=== PATIENT | female | born 1980 | race Caucasian/White ===

== ENCOUNTER 2017-04-12 16:45 | Emergency (ER) | payer SELFPAY ==
[2017-04-12 16:49] VITALS: BP 143/93; PULSE 93; RESP 20; TEMP 37.1; O2SAT 99; BMI 38.2
[2017-04-12 16:57] VITALS: BMI 25.9
--- NOTE | 2017-04-12 17:01 | XR_ITS ---
XR chest 2V HISTORY: Chest pain ITS.REASON: cp ORDERING PHYSICIAN: Lou Raymundo MD PATIENT AGE: 36 years COMPARISON: 08/16/2016 FINDINGS: The cardiomediastinal silhouette and pulmonary vascularity are within normal limits. The lungs are clear without infiltrates, suspicious nodules, or pleural effusions. No acute bony abnormalities. IMPRESSION: Negative chest, no acute finding
--- NOTE | 2017-04-12 17:04 | HMH.EDCP ---
ED Disposition Clinical Impression: Hypertension, Obesity, Atypical chest pain, Non compliance with medical treatment Disposition: Home, Self-Care Condition on Discharge: Good Additional Instructions: 1- no qadded salt diet. 2- daily asa 81 mg. 3- start lisinopril 5 mg . 4- see Dr Lott tomorrow at 9 AM. Prescriptions: Lisinopril [Lisinopril 5mg Tablet] 5 mg PO DAILY #30 tab - Critical Care Critical Care Time: No Attestation: On , the high probability of a clinically significant, sudden or life threatening deterioration of the following system(s) required my full and direct attention, intervention and personal management. The time I documented below is in addition to time spent performing reported procedures but includes the following listed in this critical care notation. Medical Decision Making - Medical Records Medical records reviewed: Yes: I reviewed the patient's medical records. Vital Signs: 04/12/17 16:49 04/12/17 20:14 Temperature 98.8 F Temperature Source Oral Pulse Rate [Right Radial] 93 H 84 Respiratory Rate 20 20 Blood Pressure [Right Arm] 143/93 134/56 Blood Pressure Mean [Right Arm] 109 82 Blood Pressure Source [Right Arm] Automatic Cuff Automatic Cuff Blood Pressure Position [Right Arm] Sitting Sitting 02 Sat by Pulse Oximetry 99 98 Oxygen Delivery Method Room Air Room Air - Lab Data Lab Results 04/12/17 17:00: WBC 10.5, RBC 4.96, Hgb 14.6, Hct 43.7, MCV 88.2, MCH 29.4, MCHC 33.3, RDW 13.0, Plt Count 388, MPV 7.2 L, Neut % (Auto) 63.1, Lymph % (Auto) 26.6, [place] % (Auto) 7.4, Eos % (Auto) 2.3, Baso % (Auto) 0.5, Neut # (Auto) 6.7, Lymph # (Auto) 2.8, [place] # (Auto) 0.8, Eos # (Auto) 0.3, Baso # (Auto) 0.1 04/12/17 17:00: D-Dimer < 100 04/12/17 17:00: Sodium 140, Potassium 3.9, Chloride 107, Carbon Dioxide 26, Anion Gap 10.9, BUN 10, Creatinine 0.59, Estimated Creat Clear 135, Estimated GFR 116, Est GFR ( Amer) 140, Glucose 96, Total Creatine Kinase 114, CK-MB (CK-2) < 0.5, CK-MB (CK-2) Rel Index 0.4, Troponin I < 0.02 04/12/17 17:00: Sodium 141, Potassium 3.9, Chloride 108 H, Carbon Dioxide 25, Anion Gap 11.9, BUN 10, Creatinine 0.63, Estimated Creat Clear 127, Estimated GFR 108, Est GFR ( Amer) 130, Glucose 97, Calcium 8.8, Total Bilirubin 0.3, AST 13 L, ALT 31, Alkaline Phosphatase 67, Total Creatine Kinase 110, CK-MB (CK-2) 0.5, CK-MB (CK-2) Rel Index 0.5, Troponin I < 0.02, C-Reactive Protein 0.5, Total Protein 6.8, Albumin 3.2 L, Globulin 3.6 H, Albumin/Globulin Ratio 0.9 L 04/12/17 17:00: B-Natriuretic Peptide 40 04/12/17 17:00: Group A Strep Rapid Negative 04/12/17 18:09: Urine Color Yellow, Urine Appearance Clear, Urine pH 7.0, Ur Specific [place] 1.020, Urine Protein Negative, Urine Glucose (UA) Negative, Urine Ketones Negative, Urine Blood Negative, Urine Nitrate Negative, Urine Bilirubin Negative, Urine Urobilinogen 0.2, Ur Leukocyte Esterase Negative, Urine RBC None, Urine WBC Occasional, Ur Squamous Epith Cells 20-50, Urine Bacteria 1+ 04/12/17 18:09: Urine Opiates Screen Negative, Ur Barbituates Screen Negative, Ur Phencyclidine Scrn Negative, Ur Amphetamines Screen Negative, U Methamphetamines Scrn Negative, U Benzodiazepines Scrn Negative, Urine Cocaine Screen Negative, U Marijuana (THC) Screen Negative 04/12/17 19:05: Troponin I < 0.02 Result diagrams: 04/12/17 17:00 04/12/17 17:00 Orders (Tests/Meds): ED MEDICATIONS Generic Name Dose Route Start Last Admin Trade Name Freq PRN Reason Stop Dose Admin Lisinopril/HCTZ 1 each 04/13/17 09:00 Zestoretic 10/12.5mg Tablet PO 05/13/17 08:59 DAILY MIKAELA Lisinopril 5 mg 04/13/17 09:00 04/12/17 19:37 Zestril 5mg Tablet PO 05/13/17 08:59 5 mg DAILY MIKAELA Administration Discontinued Medications Generic Name Dose Route Start Last Admin Trade Name Franca PRN Reason Stop Dose Admin Sodium Chloride 1,000 mls @ 999 mls/hr 04/12/17 17:15 04/12/17 17:42 Sod Chloride 0.9% 1000ml
--- NOTE | 2017-04-12 17:08 | ED_ITS ---
ED Disposition Clinical Impression: Hypertension, Obesity, Atypical chest pain, Non compliance with medical treatment Disposition: Home, Self-Care Condition on Discharge: Good Additional Instructions: 1- no qadded salt diet. 2- daily asa 81 mg. 3- start lisinopril 5 mg . 4- see Dr Lott tomorrow at 9 AM. Prescriptions: Lisinopril [Lisinopril 5mg Tablet] 5 mg PO DAILY #30 tab - Critical Care Critical Care Time: No Attestation: On , the high probability of a clinically significant, sudden or life threatening deterioration of the following system(s) required my full and direct attention, intervention and personal management. The time I documented below is in addition to time spent performing reported procedures but includes the following listed in this critical care notation. Medical Decision Making - Medical Records Medical records reviewed: Yes: I reviewed the patient's medical records. Vital Signs: 04/12/17 16:49 04/12/17 20:14 Temperature 98.8 F Temperature Source Oral Pulse Rate [Right Radial] 93 H 84 Respiratory Rate 20 20 Blood Pressure [Right Arm] 143/93 134/56 Blood Pressure Mean [Right Arm] 109 82 Blood Pressure Source [Right Arm] Automatic Cuff Automatic Cuff Blood Pressure Position [Right Arm] Sitting Sitting 02 Sat by Pulse Oximetry 99 98 Oxygen Delivery Method Room Air Room Air - Lab Data Lab Results 04/12/17 17:00: WBC 10.5, RBC 4.96, Hgb 14.6, Hct 43.7, MCV 88.2, MCH 29.4, MCHC 33.3, RDW 13.0, Plt Count 388, MPV 7.2 L, Neut % (Auto) 63.1, Lymph % (Auto ) 26.6, [place] % (Auto) 7.4, Eos % (Auto) 2.3, Baso % (Auto) 0.5, Neut # (Auto) 6.7, Lymph # (Auto) 2.8, Bell # (Auto) 0.8, Eos # (Auto) 0.3, Baso # (Auto) 0.1 04/12/17 17:00: D-Dimer < 100 04/12/17 17:00: Sodium 140, Potassium 3.9, Chloride 107, Carbon Dioxide 26, Anion Gap 10.9, BUN 10, Creatinine 0.59, Estimated Creat Clear 135, Estimated GFR 116, Est GFR ( Amer) 140, Glucose 96, Total Creatine Kinase 114, CK- MB (CK-2) < 0.5, CK-MB (CK-2) Rel Index 0.4, Troponin I < 0.02 04/12/17 17:00: Sodium 141, Potassium 3.9, Chloride 108 H, Carbon Dioxide 25, Anion Gap 11.9, BUN 10, Creatinine 0.63, Estimated Creat Clear 127, Estimated GFR 108, Est GFR ( Amer) 130, Glucose 97, Calcium 8.8, Total Bilirubin 0.3, AST 13 L, ALT 31, Alkaline Phosphatase 67, Total Creatine Kinase 110, CK- MB (CK-2) 0.5, CK-MB (CK-2) Rel Index 0.5, Troponin I < 0.02, C-Reactive Protein 0.5, Total Protein 6.8, Albumin 3.2 L, Globulin 3.6 H, Albumin/Globulin Ratio 0.9 L 04/12/17 17:00: B-Natriuretic Peptide 40 04/12/17 17:00: Group A Strep Rapid Negative 04/12/17 18:09: Urine Color Yellow, Urine Appearance Clear, Urine pH 7.0, Ur Specific [place] 1.020, Urine Protein Negative, Urine Glucose (UA) Negative, Urine Ketones Negative, Urine Blood Negative, Urine Nitrate Negative, Urine Bilirubin Negative, Urine Urobilinogen 0.2, Ur Leukocyte Esterase Negative, Urine RBC None, Urine WBC Occasional, Ur Squamous Epith Cells 20-50, Urine Bacteria 1+ 04/12/17 18:09: Urine Opiates Screen Negative, Ur Barbituates Screen Negative, Ur Phencyclidine Scrn Negative, Ur Amphetamines Screen Negative, U Methamphetamines Scrn Negative, U Benzodiazepines Scrn Negative, Urine Cocaine Screen Negative, U Marijuana (THC) Screen Negative 04/12/17 19:05: Troponin I < 0.02 Result diagrams: 04/12/17 17:00 04/12/17 17:00 Orders (Tests/Meds): ED MEDICATIONS Generic Name Dose Route Start Last Admin Trade Name Hétcor
[2017-04-12 17:10] LABS: Basophils # 0.1 K/mm3 (0-0.2); Basophils % 0.5 % (0.1-2.0); Eosinophils # 0.3 K/mm3 (0.0-0.4); Eosinophils % 2.3 % (0.1-12.0); Hematocrit 43.7 % (37.0-47.0); Hemoglobin 14.6 g/dL (12.2-16.2); Lymphocytes # 2.8 K/mm3 (0.7-4.5); Lymphocytes % 26.6 K/mm3 (10-50); Mean Corpuscular HGB Conc 33.3 g/dL (31.8-35.4); Mean Corpuscular Hemoglobin 29.4 pg (27.0-31.2); Mean Corpuscular Volume 88.2 fl (81-99); Mean Platelet Volume 7.2 fl (7.4-10.4); Monocytes # 0.8 K/mm3 (0.1-1.0); Monocytes % 7.4 % (1.7-9.3); Neutrophils # 6.7 K/mm3 (1.8-7.8); Neutrophils % 63.1 % (37.0-80.0); Platelet Count 388 K/mm3 (142-424); Red Blood Count 4.96 M/mm3 (4.20-5.40); White Blood Count 10.5 K/mm3 (4.8-10.8)
[2017-04-12 17:27] LABS: Anion Gap 10.9 mEq/L (5-15); Blood Urea Nitrogen 10 mg/dL (7-18); Carbon Dioxide 26 mmol/L (21.0-32.0); Chloride 107 mmol/L (98-107); Creatine Kinase 114 U/L (26-192); Creatinine Clearance Estimated 135 mL/min (0-300); Creatinine,Serum 0.59 mg/dL (0.55-1.02); Estimated Glomerular Filt Rate 116 ml/min (>60); GFR (African American) 140 ML/MIN (>60); Glucose 96 mg/dL (74-106); Potassium 3.9 mmoL/L (3.5-5.1); Sodium 140 mmol/L (136-145); Troponin I < 0.02 ng/ml (0.00-0.06)
[2017-04-12 17:29] LABS: CKMB Relative Index 0.4 U/L (0-4.0); Creatine Kinase MB < 0.5 mg/ml (0.0-3.6)
[2017-04-12 17:32] LABS: D-Dimer < 100 (0-400)
[2017-04-12 17:54] LABS: Strep Scrn Group A (Rapid) Negative (Negative)
[2017-04-12 18:01] LABS: Alanine Aminotransferase 31 U/L (12-78); Albumin Level 3.2 gm/dL (3.4-5.0); Albumin/Globulin Ratio 0.9 (1.1-1.8); Alkaline Phosphatase 67 U/L (46-116); Anion Gap 11.9 mEq/L (5-15); Aspartate Amino Transferase 13 U/L (15-37); Bilirubin,Total 0.3 mg/dL (0.2-1.0); Blood Urea Nitrogen 10 mg/dL (7-18); C-Reactive Protein 0.5 mg/L (0.0-0.9); CKMB Relative Index 0.5 U/L (0-4.0); Calcium 8.8 mg/dL (8.5-10.1); Carbon Dioxide 25 mmol/L (21.0-32.0); Chloride 108 mmol/L (98-107); Creatine Kinase 110 U/L (26-192); Creatine Kinase MB 0.5 mg/ml (0.0-3.6); Creatinine Clearance Estimated 127 mL/min (0-300); Creatinine,Serum 0.63 mg/dL (0.55-1.02); Estimated Glomerular Filt Rate 108 ml/min (>60); GFR (African American) 130 ML/MIN (>60); Globulin 3.6 gm/dl (1.3-3.2); Glucose 97 mg/dL (74-106); Potassium 3.9 mmoL/L (3.5-5.1); Sodium 141 mmol/L (136-145); Total Protein,Serum 6.8 gm/dL (6.4-8.2); Troponin I < 0.02 ng/ml (0.00-0.06)
--- NOTE | 2017-04-12 18:02 | PC.NURSE ---
PT AMBULATED TO RESTROOM. STEADY GAIT NOTED.
[2017-04-12 18:33] LABS: Appearance,Urine CLEAR (Clear); Bilirubin,Urine Negative (Negative); Blood, Urine Negative (Negative); Glucose,Urine (UA) Negative (Negative); Ketones,Urine Negative (Negative); Leukocyte Esterase,Urine Negative (Negative); Microscopic, Urine URINE MICROSCOPIC (MICROSCOPIC); Nitrate,Urine Negative (Negative); Protein,Urine Negative (Negative); Urobilinogen,Urine 0.2 EU/dl (0.2)
[2017-04-12 18:34] LABS: Color,Urine Yellow (Yellow)
[2017-04-12 18:43] LABS: Amphetamine/Metha Screen,Urine Negative ng/mL (<1000); Barbiturates Screen,Urine Negative ng/mL (<200); Benzodiazepines Screen,Urine Negative ng/mL (200); Cannabinoid Screen,Urine Negative ng/mL (<50); Cocaine Screen,Urine Negative ng/g (<300); Methadone Screen,Urine Negative ng/mL (<300); Opiate Screen,Urine Negative ng/mL (<300); Phencyclidine Screen,Urine Negative ng/mL (<25)
[2017-04-12 19:15] LABS: Bacteria,Urine 1+ /lpf; Squamous Epithelial Cell,Urine 20-50 #/hpf (0-5); WBC,Urine Occasional #/hpf (0-3)
[2017-04-12 19:25] LABS: Troponin I < 0.02 ng/ml (0.00-0.06)
[2017-04-12 20:14] VITALS: BP 134/56; PULSE 84; RESP 20; O2SAT 98
== END 2017-04-12 20:42 | disposition home or self-care (01) ==
PROVIDERS: Emergency Provider Emergency Medicine
DX: R07.89 Other chest pain (principal); I10 Essential (primary) hypertension; E66.9 Obesity, unspecified; Z68.25 Body mass index [BMI] 25.0-25.9, adult; K21.9 Gastro-esophageal reflux disease without esophagitis; Z88.6 Allergy status to analgesic agent; Z87.891 Personal history of nicotine dependence
CPT/HCPCS: 71046; 80048; 80053; 80305; 81001; 82550; 82553; 83880; 84484; 85025; 85378; 86140; 87430; 93005; 93041; 96365; 99283

== ENCOUNTER 2019-10-29 12:34 | Emergency (ER) | payer MEDICAID, SELFPAY ==
[2019-10-29 12:47] VITALS: BP 143/95; PULSE 113; RESP 17; TEMP 37.1; O2SAT 95; BMI 48.2
[2019-10-29 13:06] VITALS: BP 161/96; PULSE 99
--- NOTE | 2019-10-29 13:17 | HMH.EDSKAF ---
ED Disposition Clinical Impression: Abscess of skin or subcutaneous tissue Qualifiers: Site of cutaneous abscess: other site Qualified Code(s): L02.818 - Cutaneous abscess of other sites Disposition: Home, Self-Care Condition on Discharge: Fair Instructions: DI for Skin Abscess Prescriptions: Amoxicillin/Potassium Clav [Augmentin 825125 Tablet] 1 tab PO Q12H 7 Days #14 tab Transmission Status: Pending to [employer] #[id number] Time of Disposition: 13:46 - Critical Care Critical Care Time: No Attestation: On , the high probability of a clinically significant, sudden or life threatening deterioration of the following system(s) required my full and direct attention, intervention and personal management. The time I documented below is in addition to time spent performing reported procedures but includes the following listed in this critical care notation. Medical Decision Making - Medical Records Medical records reviewed: Yes: I reviewed the patient's medical records. MR Comment: patient complaints of left labial abscess since Sunday. Denies similar episodes previously, denies any sexual activity lately. Examination showed an abscess in the left labial area; the area was cleaned with Betadine, lidocaine without epi was injected , Used a 11 blade an incision was made approximately 3 to 4 mL of pus was removed, dressing applied to the abscess; We are prescribing an antibiotic to the patient advised her to keep expressing pus from the area and follow-up as needed and changing dressings bid till healed. Sample from the wound has been sent for culture - Ever Inquiry Pt receiving controlled substance: No Vital Signs: 10/29/19 12:47 10/29/19 13:06 Temperature 98.7 F Temperature Source Oral Pulse Rate [Right Radial] 113 H 99 H Respiratory Rate 17 Blood Pressure [Right Arm] 143/95 H 161/96 H Blood Pressure Mean [Right Arm] 111 117 Blood Pressure Position [Right Arm] Supine 02 Sat by Pulse Oximetry 95 Oxygen Delivery Method Room Air Orders (Tests/Meds): ED MEDICATIONS Discontinued Medications Generic Name Dose Route Start Last Admin Trade Name Freq PRN Reason Stop Dose Admin Ceftriaxone Sodium 1 gm 10/29/19 12:54 10/29/19 13:30 Rocephin 1gm Vial IM 10/29/19 12:55 1 gm ONCE ONE Administration Protocol Lidocaine HCl 0 ml 10/29/19 12:54 10/29/19 13:30 Lidocaine 1% 10ml Mdv IM 10/29/19 12:55 2.1 ml ONCE ONE Administration ORDERS Category Date Time Status Wound Culture and Gram Stain Stat Micro 10/29/19 13:05 Received Skin/Abscess/FB HPI - General Chief complaint: Skin/Abscess/Foreign Body Stated complaint: Mass in crease of l leg going into vaginal area Time Seen by Provider: 10/29/19 12:40 Mode of Arrival: Ambulatory Source of Information: Patient Limitations: No Limitations Description of Symptoms (Recalled from ER Triage Doc. by RN): left labial abscess since sunday. - History of Present Illness HPI narrative: patient complaints of left labial abscess since Sunday. Denies similar episodes previously, denies any sexual activity lately MD complaint: abscess/boil Onset (ago): day(s) Tetanus up to date: unsure Location: genitals Severity: moderate Severity scale (1-10): 6 Quality: sharp Consistency: constant Relieving factors: none Exacerbating factors: none Context: none Associated symptoms: denies other symptoms Treatments prior to arrival: none - Related Data Previous Rx's Medication Instructions Recorded cephALEXin [Keflex 500mg Cap] 500 mg PO TID #30 cap 04/17/19 Amoxicillin/Potassium Clav 1 tab PO Q12H 7 Days #14 tab 10/29/19 [Augmentin 875-125 Tablet] Allergies Allergy/AdvReac Type Severity Reaction Status Date / Time codeine [CODEINE] Allergy Severe S-DIFF. Verified 10/29/19 12:53 BREATHING [facility] History - Hepatitis A Screen Drug use history?: No High risk sexual behaviors?: No History of sexually tr
[2019-10-29 14:00] VITALS: BP 158/97; PULSE 107; RESP 18; TEMP 37.1; O2SAT 98
== END 2019-10-29 14:00 | disposition home or self-care (01) ==
PROVIDERS: Emergency Provider Emergency Medicine
DX: N76.4 Abscess of vulva (principal); G43.709 Chronic migraine without aura, not intractable, without status migrainosus; K21.9 Gastro-esophageal reflux disease without esophagitis; I10 Essential (primary) hypertension; Z90.49 Acquired absence of other specified parts of digestive tract; Z90.710 Acquired absence of both cervix and uterus; Z87.891 Personal history of nicotine dependence; Z88.5 Allergy status to narcotic agent
CPT/HCPCS: 56405; 87070; 87077; 87186; 87205; 96372; 99283

== ENCOUNTER 2020-02-01 15:47 | Emergency (ER) | payer MEDICAID, SELFPAY ==
[2020-02-01 16:04] VITALS: BP 153/71; PULSE 101; RESP 17; O2SAT 96; BMI 46.5
[2020-02-01 16:20] VITALS: BP 153/71; PULSE 101; RESP 17; TEMP 36.8; O2SAT 96; BMI 46.6
--- NOTE | 2020-02-01 16:32 | XR_ITS ---
PROCEDURE: XR CERVICAL SPINE 3V Referring Doctor: Fausto Velasco Patient Age:39Y CLINICAL INDICATION: PAIN Neck pain extends to upper back chest and down left arm past 4 months. COMPARISON: CR XR CHEST 2V from 04/17/2019 CR XR THORACIC SPINE 2V from 02/01/2020 FINDINGS: Cervical spine series 4 view: AP, lateral, open mouth odontoid, and performed today The cervical spine appears intact with normal alignment. The cervical vertebral bodies intact and unremarkable disc spaces are well maintained throughout the C-spine. The cervical thoracic junction appears satisfactory-On the lateral swimmer's view.. Question minimal levocurvature at the upper the T-spine noted on the AP view but is less evident and negligible on subsequent T-spine series The dens, odontoid intact. C1-C2 relationships appear normal on the open mouth views. I would incidentally note that the maxillary sinuses are clear. IMPRESSION: negative C-spine. Normal alignment. Disc spaces well maintained. No evident cervical spondylosis on these views Dictated by: Deepak Barillas MD 02/01/2020 19:03 Deepak Barillas MD in [place] 02/01/2020 19:03
--- NOTE | 2020-02-01 16:32 | XR_ITS ---
PROCEDURE: XR THORACIC SPINE 2V Referring Doctor: Fausto Velasco Patient Age:39Y CLINICAL INDICATION: PAIN Neck pain that goes into upper back upper thoracic area and into the chest. Pain goes down left arm for months. COMPARISON: CR CXR2V XR chest 2V from 04/12/2017 CR XR CHEST 2V from 04/17/2019 FINDINGS: Thoracic spine AP and lateral views performed Thoracic spine appears intact. Vertebral bodies intact with disc spaces are well maintained. Pedicles intact. No perispinal mass. Only question possible very minor levocurvature at the upper most T-spine but is negligible 5 degrees or less. And does not appear to be of significance. The visualized portions the lungs are clear. The heart upper normal in size. IMPRESSION: T-spine intact. With no significant appearing findings on plain film Vertebral bodies and disc spaces well maintained. Dictated by: Deepak Barillas MD 02/01/2020 19:07 Deepak Barillas MD in [place] 02/01/2020 19:07
--- NOTE | 2020-02-01 17:06 | HMH.EDUTC ---
[facility] Disposition Clinical Impression: Neck pain Left shoulder pain Qualifiers: Chronicity: acute Qualified Code(s): M25.512 - Pain in left shoulder Radiculopathy Qualifiers: Spinal region: unspecified Qualified Code(s): M54.10 - Radiculopathy, site unspecified Disposition: Home, Self-Care Condition on Discharge: Good Instructions: DI for Cervical Radiculopathy Additional Instructions: Don't start the oral steroids until tomorrow, since you had the shot here today. Go home and rest. It would be best if you rested tomorrow too. No heavy lifting. No twisting. Take the oral medications as directed. The muscle relaxer (robaxin) will make you drowsy, so don't drive or operate heavy machinery after taking it. Follow up with your regular doctor. GO TO THE ER FOR ANY WORSENING SYMPTOMS OR CONCERN, ESPECIALLY BOWEL OR BLADDER ISSUES, SADDLE AREA NUMBNESS, FEVER, ETC Prescriptions: methylPREDNISolone [Medrol] 4 mg PO DIRECTED 6 Days #21 tab.ds.pk Transmission Status: Received by [email or web address] #[id number] Methocarbamol [Robaxin 500mg Tab] 500 mg PO BIDP PRN #30 tab PRN Reason: Muscle Spasm Transmission Status: Received by [email or web address] #[id number] Referrals: PCP,No [Primary Care Provider] - Forms: Work/School Release Time of Disposition: 17:20 Medical Decision Making - Medical Records Medical records reviewed: No: I reviewed the patient's medical records. - Ever Inquiry Pt receiving controlled substance: No Vital Signs: 02/01/20 16:04 02/01/20 16:20 02/01/20 17:34 Temperature 98.3 F 98.3 F Temperature Source Oral Pulse Rate 101 H Pulse Rate [Right Radial] 101 H 101 H Respiratory Rate 17 17 17 Blood Pressure 153/71 H Blood Pressure [Right Arm] 153/71 H 153/71 H Blood Pressure Mean [Right Arm] 98 98 Blood Pressure Source [Right Arm] Automatic Cuff Blood Pressure Position [Right Arm] Sitting 02 Sat by Pulse Oximetry 96 96 Oxygen Delivery Method Room Air Orders (Tests/Meds): ED MEDICATIONS Discontinued Medications Generic Name Dose Route Start Last Admin Trade Name Freq PRN Reason Stop Dose Admin Ketorolac Tromethamine 60 mg 02/01/20 17:18 02/01/20 17:25 Ketorolac 60mg/2ml Vial IM 02/01/20 17:19 60 mg ONCE ONE Administration Methylprednisolone Sodium Succinate 125 mg 02/01/20 17:18 02/01/20 17:25 Methylprednisolone Sod Succ 125mg Vial IM 02/01/20 17:19 125 mg ONCE ONE Administration [facility] HPI - General Stated complaint: neck and arm pain Time Seen by Provider: 02/01/20 17:06 Mode of Arrival: Ambulatory Source of Information: Patient Limitations: No Limitations Description of Symptoms (Recalled from Triage Doc. by RN): PATIENT C/O PAIN IN NECK FOR SEVERAL MONTHS. SHE STATES THE PAIN RADIATES TO LEFT SHOULDER AND CAUSES TINGLING AND BURNING TO LEFT ARM. REPORTS PAIN IS GETTING WORSE AND STARTING TO ALSO RADIATE TO RIGHT SHOULDER AND DOWN BACK TO SHOULDER BLADES. SHE ALSO C/O DECREASED BILATERAL STOCK HANGER HEENT Symptoms (Recalled from RN notes): No Resp Symptoms (Recalled from RN notes): No Skin Symptoms (Recalled from RN notes): No MS Symptoms (Recalled from RN notes): Yes Functional Status (Recalled from RN notes): WNL - History of Present Illness Provider Complaint: She states that she has been having neck pain and left shoulder pain. This has been ongoing for the past 3 months or so. It seems like its getting worse. She denies any injury that preceded this. Sometimes her left hand goes numb with it. - Related Data Previous Rx's Medication Instructions Recorded Methocarbamol [Robaxin 500mg Tab] 500 mg PO BIDP PRN #30 tab 02/01/20 methylPREDNISolone [Medrol] 4 mg PO DIRECTED 6 Days #21 02/01/20 tab.ds.pk Allergies Allergy/AdvReac Type Severity Reaction Status Date / Time codeine [CODEINE] Allergy Severe S-DIFF. Verified 10/29/19 12:53 BREATHING - Worker's Comp Is this a Worker's Comp case?: N
[2020-02-01 17:34] VITALS: BP 153/71; PULSE 101; RESP 17; TEMP 36.8; O2SAT 96
== END 2020-02-01 17:43 | disposition home or self-care (01) ==
PROVIDERS: Emergency Provider Nurse Practitioner Family
DX: M54.12 Radiculopathy, cervical region (principal); I10 Essential (primary) hypertension; K21.9 Gastro-esophageal reflux disease without esophagitis; R00.2 Palpitations; Z79.899 Other long term (current) drug therapy; Z88.5 Allergy status to narcotic agent; Z90.49 Acquired absence of other specified parts of digestive tract; Z90.710 Acquired absence of both cervix and uterus
CPT/HCPCS: 72040; 72070; 96372; 99201

== ENCOUNTER 2020-05-06 19:03 | Emergency (ER) | payer OTHER, SELFPAY ==
[2020-05-06 19:05] VITALS: BP 142/98; PULSE 101; RESP 18; TEMP 36.7; O2SAT 99; BMI 46.5
[2020-05-06 19:10] VITALS: BP 142/98; PULSE 101; RESP 18; TEMP 36.7; O2SAT 99; BMI 46.5
--- NOTE | 2020-05-06 19:15 | XR_ITS ---
PROCEDURE: XR ELBOW RT MIN 3V CLINICAL INDICATION: pain COMPARISON: No exams were available for comparison FINDINGS: No fracture or dislocation. No lytic or blastic change. There is normal mineralization. The joint spaces are well-preserved. No significant degenerative/arthritic changes. No erosive changes evident. Other findings:None. IMPRESSION: No acute findings. Dictated by: Marcos Fung MD 05/07/2020 06:44 Marcos Fung MD in [place] 05/07/2020 06:44
--- NOTE | 2020-05-06 19:39 | HMH.EDUTC ---
[facility] Disposition Clinical Impression: Elbow sprain Qualifiers: Encounter type: initial encounter Laterality: right Qualified Code(s): S53.401A - Unspecified sprain of right elbow, initial encounter Disposition: Home, Self-Care Condition on Discharge: Good Instructions: How To Perform RICE (Rest, Ice, Compress, Elevate) Additional Instructions: *RICE, Rest the extremity, Ice 15-20 minutes 3-4 times daily, Compress- wear the hero wrap as discussed as much as possible to help reduce swelling and pain, Elevate the extremity when at rest *Hero wrap is for support and help control swelling, use it except in the shower. Be sure that is not to tight but not to loose either *Elevate when resting *Ibuprofen as prescribed every 8 hours as needed for pain an inflammation. If need something more can take Tylenol in between doses of Ibuprofen to help Immediately follow up with your family doctor for new or worsening of symptoms, or no noticeable improvement over the next 3-5 days Prescriptions: Ibuprofen [Ibuprofen 800mg Tablet] 800 mg PO TIDP PRN #20 tab PRN Reason: Moderate Pain Transmission Status: Received by [employer] #[id number] Referrals: PCP,No [Primary Care Provider] - As needed Rtiika Evans MD [Physician] - As needed (Office will call with appointment) Forms: Work/School Release Time of Disposition: 20:18 Medical Decision Making - Ever Inquiry Pt receiving controlled substance: No Ever was queried for this patient: No Vital Signs: 05/06/20 19:05 05/06/20 19:10 05/06/20 20:25 Temperature 98.0 F 98.0 F 98.0 F Temperature Source Oral Oral Pulse Rate 101 H Pulse Rate [Left Brachial] 101 H 101 H Respiratory Rate 18 18 18 Blood Pressure 142/98 H Blood Pressure [Left Arm] 142/98 H 142/98 H Blood Pressure Mean [Left Arm] 112 112 Blood Pressure Source [Left Arm] Automatic Cuff Automatic Cuff Blood Pressure Position [Left Arm] Sitting Sitting 02 Sat by Pulse Oximetry 99 99 Oxygen Delivery Method Room Air Room Air Orders (Tests/Meds): ED MEDICATIONS Discontinued Medications Generic Name Dose Route Start Last Admin Trade Name Freq PRN Reason Stop Dose Admin Ketorolac Tromethamine 30 mg 05/06/20 20:14 02/25/21 20:20 Ketorolac 60mg/2ml Vial IM 05/06/20 20:15 30 mg ONCE ONE Administration ORDERS Category Date Time Status XR elbow RT min 3V Stat Exams 05/06/20 19:15 Taken - Radiology Data #1 Image(s): Elbow Image Reviewed: Yes I reviewed the patient's radiology image Preliminary Findings: Normal/NAD no acute fracture - Physician Consults Physician Consulted: Cristina Time: 20:15 Reason -: Orthopedic Eval/Care Comment/Response: Spoke with Dr Evans she looked at xrays and agreed, Advised to place her in sling and office will call for appointment [facility] HPI - General Stated complaint: ao [id number] INJURED r ELBOW Time Seen by Provider: 05/06/20 19:39 Mode of Arrival: Ambulatory Source of Information: Patient Limitations: No Limitations Description of Symptoms (Recalled from Triage Doc. by RN): PATIENT C/O RIGHT ELBOW PAIN AFTER SHE HYPEREXTENDED IT TODAY HEENT Symptoms (Recalled from RN notes): No Resp Symptoms (Recalled from RN notes): No Skin Symptoms (Recalled from RN notes): No MS Symptoms (Recalled from RN notes): Yes Functional Status (Recalled from RN notes): WNL - History of Present Illness Provider Complaint: Patient states that she was holding her arm out the window when her son give her a high five and hyperexted her elbow Her upper arm was against the metal window guard and her elbow down bent back States that she has had surgery on this elbow before and felt like something popped and ever since she has been having pain - Related Data Previous Rx's Medication Instructions Recorded Methocarbamol [Robaxin 500mg Tab] 500 mg PO BIDP PRN #30 tab 02/01/20 methylPREDNISolone [Medrol] 4 mg PO DIRECTED 6 Days #21
[2020-05-06 20:25] VITALS: BP 142/98; PULSE 101; RESP 18; TEMP 36.7; O2SAT 99
== END 2020-05-06 20:28 | disposition home or self-care (01) ==
PROVIDERS: Emergency Provider Nurse Practitioner
DX: S53.401A Unspecified sprain of right elbow, initial encounter (principal); X50.9XXA Other and unspecified overexertion or strenuous movements or postures, initial encounter; Y92.89 Other specified places as the place of occurrence of the external cause; K21.9 Gastro-esophageal reflux disease without esophagitis; I10 Essential (primary) hypertension; G43.709 Chronic migraine without aura, not intractable, without status migrainosus; Z90.49 Acquired absence of other specified parts of digestive tract; Z90.710 Acquired absence of both cervix and uterus; Z79.899 Other long term (current) drug therapy
CPT/HCPCS: 73080; 96372; 99202; G0463

== ENCOUNTER 2020-06-02 15:00 | Outpatient (RCR) | payer OTHER, SELFPAY | END 2020-06-02 15:05 | disposition home or self-care (01) | LOC: OT 15:00 | PROVIDERS: Visit Provider Orthopaedic Surgery | DX: S59.801D Other specified injuries of right elbow, subsequent encounter (principal) | CPT/HCPCS: 97014; 97035; 97110; 97140; 97165; 97530; G0283 ==

== ENCOUNTER → 2020-08-25 14:36 | Outpatient (CLI) | payer OTHER, SELFPAY ==
--- NOTE | 2020-08-25 14:39 | MM_ITS ---
PROCEDURE: MM DIG MAMM DX UNILAT LT CAD Digital Breast Tomosynthesis Included CLINICAL INDICATION: LT BREAST LUMP at 10 o'clock COMPARISON: US US BREAST LT COMPLETE from 08/25/2020 TECHNIQUE: Standard CC and MLO images and 3D Tomosynthesis was obtained. R2 CAD reviewed. FINDINGS: There are scattered fibroglandular elements which may obscure a lesion on mammography. No dominant mass or indirect evidence of malignancy. No suspicious type microcalcifications. This is the patient's baseline mammograms. Nothing to definitively correlate with the lump in the lower inner quadrant of the left breast. Complete left breast ultrasound concentrating on the site of lump at 10 o'clock shows a circumscribed mildly hyperechoic lesion with internal echoes which is quite superficial in position in the left breast. This most likely represents a lipoma. It measures about 2.3 cm x 8 mm. There is a minimally complex 7 mm cyst which appears to be directly deep to the probable lipoma. There are a few benign-appearing lymph nodes in the left axilla. There are no other abnormalities. These findings are considered probably benign and repeat left breast ultrasound in 6 months is recommended. Given the patient has a palpable abnormality, a clinical evaluation by a clinical breast child care sitter is also recommended. IMPRESSION: Normal bilateral baseline digital diagnostic mammograms. Nothing to definitively correlate with a lump at 10 o'clock in the left breast by mammography. 2.3 cm x 8 mm circumscribed mildly hyperechoic lesion at 10 o'clock superficially in the left breast with ultrasound features most consistent with a lipoma. 7 mm minimally complex cyst just directly deep to the probable lipoma. These findings are considered probably benign and repeat left breast ultrasound in 6 months is recommended. Given the patient has a palpable left breast lump, a clinical evaluation by a clinical breast child care sitter is also recommended. BI-RAD Category: 3 Probably Benign Finding Short Term Follow-Up FOLLOW-UP: 6M 6 Month Follow-up. Given the patient has a palpable left breast lump, a clinical evaluation by a clinical breast child care sitter is also recommended. (A letter has been sent to the patient regarding results of the study.) Dictated by: Fausto Starr MD 08/26/2020 10:09 Fausto Starr MD in [place] 08/26/2020 10:09
--- NOTE | 2020-08-25 14:43 | US_ITS ---
PROCEDURE: MM DIG MAMM DX UNILAT LT CAD Digital Breast Tomosynthesis Included CLINICAL INDICATION: LT BREAST LUMP at 10 o'clock COMPARISON: US US BREAST LT COMPLETE from 08/25/2020 TECHNIQUE: Standard CC and MLO images and 3D Tomosynthesis was obtained. R2 CAD reviewed. FINDINGS: There are scattered fibroglandular elements which may obscure a lesion on mammography. No dominant mass or indirect evidence of malignancy. No suspicious type microcalcifications. This is the patient's baseline mammograms. Nothing to definitively correlate with the lump in the lower inner quadrant of the left breast. Complete left breast ultrasound concentrating on the site of lump at 10 o'clock shows a circumscribed mildly hyperechoic lesion with internal echoes which is quite superficial in position in the left breast. This most likely represents a lipoma. It measures about 2.3 cm x 8 mm. There is a minimally complex 7 mm cyst which appears to be directly deep to the probable lipoma. There are a few benign-appearing lymph nodes in the left axilla. There are no other abnormalities. These findings are considered probably benign and repeat left breast ultrasound in 6 months is recommended. Given the patient has a palpable abnormality, a clinical evaluation by a clinical breast managed care manager is also recommended. IMPRESSION: Normal bilateral baseline digital diagnostic mammograms. Nothing to definitively correlate with a lump at 10 o'clock in the left breast by mammography. 2.3 cm x 8 mm circumscribed mildly hyperechoic lesion at 10 o'clock superficially in the left breast with ultrasound features most consistent with a lipoma. 7 mm minimally complex cyst just directly deep to the probable lipoma. These findings are considered probably benign and repeat left breast ultrasound in 6 months is recommended. Given the patient has a palpable left breast lump, a clinical evaluation by a clinical breast managed care manager is also recommended. BI-RAD Category: 3 Probably Benign Finding Short Term Follow-Up FOLLOW-UP: 6M 6 Month Follow-up. Given the patient has a palpable left breast lump, a clinical evaluation by a clinical breast managed care manager is also recommended. (A letter has been sent to the patient regarding results of the study.) Dictated by: Fausto Starr MD 08/26/2020 10:09 Fausto Starr MD in [place] 08/26/2020 10:09
== END ==
PROVIDERS: PCP Emergency Medicine; Visit Provider Nurse Practitioner Family
DX: N63.20 Unspecified lump in the left breast, unspecified quadrant (principal)
CPT/HCPCS: 76641; 77061; 77065; G0279

== ENCOUNTER → 2020-08-28 12:01 | Outpatient (CLI) | payer OTHER, SELFPAY ==
[2020-08-28 12:18] LABS: Basophils # 0.1 K/mm3 (0-0.2); Basophils % 0.8 % (0.1-2.0); Eosinophils # 0.3 K/mm3 (0.0-0.4); Eosinophils % 3.3 % (0.1-12.0); Hematocrit 46.4 % (37.0-47.0); Hemoglobin 15.8 g/dL (12.2-16.2); Lymphocytes # 3.3 K/mm3 (0.7-4.5); Lymphocytes % 34.1 % (10-50); Mean Corpuscular HGB Conc 34.1 g/dL (31.8-35.4); Mean Corpuscular Hemoglobin 29.5 pg (27.0-31.2); Mean Corpuscular Volume 86.5 fl (81-99); Mean Platelet Volume 7.2 fl (7.4-10.4); Monocytes # 0.4 K/mm3 (0.1-1.0); Monocytes % 4.5 % (1.7-9.3); Neutrophils # 5.6 K/mm3 (1.8-7.8); Neutrophils % 57.3 % (37.0-80.0); Platelet Count 445 K/mm3 (142-424); Red Blood Count 5.36 M/mm3 (4.20-5.40); Red Cell Distribution Width 13.5 % (11.5-17.5); White Blood Count 9.8 K/mm3 (4.8-10.8)
[2020-08-28 12:53] LABS: Alanine Aminotransferase 24 U/L (12-78); Albumin Level 4.2 g/dl (3.5-5.0); Albumin/Globulin Ratio 1.5 (1.1-1.8); Alkaline Phosphatase 90 U/L (38-126); Anion Gap 14.5 mEq/L (5-15); Aspartate Amino Transferase 25 U/L (14-36); Bilirubin,Total 0.7 mg/dl (0.2-1.3); Blood Urea Nitrogen 12 mg/dl (7-17); Calcium 9.3 mg/dl (8.4-10.2); Carbon Dioxide 22 mmol/L (22.0-30.0); Chloride 102 mmol/L (98-107); Chol/HDL Ratio 4.4 (1-3.5); Cholesterol 240 mg/dl (140-200); Estimated Glomerular Filt Rate 138 ml/min (>60); GFR (African American) 167 ML/MIN (>60); Globulin 2.8 g/dL (1.3-3.2); Glucose 166 mg/dl (74-100); HDL Cholesterol 54 mg/dl (40-60); Potassium 4.5 mmoL/L (3.5-5.1); Sodium 134 mmol/L (136-145); Triglycerides 143 mg/dl (30-150); VLDL Cholesterol 29 mg/dL (0-40)
[2020-08-28 12:59] LABS: Hemoglobin A1C 8.9 % (4.0-6.0)
[2020-08-28 13:04] LABS: Direct LDL Cholesterol 161.69 mg/dL (100-129)
[2020-08-28 13:16] LABS: 25-OH Vitamin D, Total < 12.8 ng/mL (30-100)
[2020-08-28 13:24] LABS: Thyroid Stimulating Hormone 1.32 uIU/mL (0.465-4.68)
[2020-08-28 13:42] LABS: Vitamin B12 360 pg/mL (239-931)
== END ==
PROVIDERS: Visit Provider Nurse Practitioner Family
DX: I10 Essential (primary) hypertension (principal); R20.2 Paresthesia of skin; E66.01 Morbid (severe) obesity due to excess calories; Z68.41 Body mass index [BMI] 40.0-44.9, adult
CPT/HCPCS: 36415; 80053; 80061; 82306; 82607; 83036; 84443; 85025

== ENCOUNTER 2020-09-07 15:00 | Outpatient (RCR) | payer OTHER, SELFPAY ==
--- NOTE | 2020-07-15 15:46 | HMH.OTOPEV ---
OT Inpatient Evaluation Rehab OT Outpatient Eval Start: 07/15/20 15:24 Freq: Status: Active Protocol: Document 07/15/20 15:27 RMCHAYA (Rec: 07/15/20 15:46 [id number] Electronically Signed By Radha Dueñas OT 07/15/20 15:27 Outpatient Therapy Subjective History Subjective History Pt is a 39 year old female who reports to therapy for initial evaluation to right elbow. Pt reports on May 06, 2020 she had her arm extended out car window when her son have her a high-five . This resulted in a hyperextension at the elbow. Pt has seen therapy previously for 4 weeks, but did not demonstrate improvement. Since then she has seen an ortho and received an MRI. 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 Pt also has a past history of ulnar nerve decompression/ transposition and CTR in June 2007. Pt does demonstrate with decreased AROM and strength at right elbow. Pt will continue to be seen in order to address all deficits. Chief Complaint Pain,Weakness Symptom Type Ache,Throb,Sharp,Dull Symptoms Relieved By Rest/Positioning Symptoms Aggravated By Physical Activity,Lifting Prior Functional Limitations None Current Functional Limitations Reaching,Lifting,Housework, Sleeping,Recreation Activity Symptom Description Constant but Variable Level of pain today (0-10) 6 Pain scale - at its best (0-10) 4 Pain scale - at its worst (0-10) 9 Shoulder/Elbow Eval Shoulder Objective Measurements Elbow Objective Measurements Elbow ROM Right Elbow Extension Active Range of Motion ( -10 degrees degrees) Elbow Flexion Active Range of Motion ( 115 degrees degrees) Elbow Pronation of Forearm Range of 90 degrees Motion (degrees) Elbow Supination of Forearm Range of 70 degrees Motion (degrees) Elbow MMT Elbow Flexion Strength Grade 3+ Fair+ Elbow Extension Strength Grade 3+ Fair+ OT Outpatient Assessment Impairments Problems/Impairments Palpation Tenderness,Impaired Range of Motion,Impaired
--- NOTE | 2020-08-18 15:03 | HMH.RHREAS ---
Rehab Reassessment Rehab OP Re-assessment Start: 08/18/20 14:56 Freq: Status: Active Protocol: Document 08/18/20 14:56 KIAH (Rec: 08/18/20 15:03 KIAH [id number]) Electronically Signed By Radha Dueñas OT 08/18/20 14:56 Rehab Re-assessment Subjective Subjective I honestly don't see a difference. Objective Objective Notes Each session pt attends, therapist provides skilled OT services. She is passively ranged at right elbow in flexion, extension, supination , and pronation. Pt also receives soft tissue massage to medial elbow. Pt does engage in nerve glides, aROM, and strengthening exercises at right elbow. Modalities are provided in order to decrease pain/inflammation. Assessment Progress Assessment Slower Than Expected Assessment Notes At this time, pt does not demonstrate progress. She has not been able to attended therapy for the past 13 days due to having to go to the doctor. Pt presents to therapy today with swelling on anterior aspect for right forearm. Pt is also very tender to touch there. Pt did receive two injections at the elbow last sunday; however she reports no improvement in pain. Pt's pain is still at 8 /10 at worst. Pt's AROM has not improved and neither has strength since starting therapy. Patient goals met STG 3 & 5 Goals Not Met See below Revised Goals STG 1, 2, & 4 LT-5 Plan Plan Continue with ot plan of care at this time Frequency of Therapy 2xs a week Duration of therapy 4 more weeks Time and Billing Re-Eval Time 10 Re-Eval Billing Units 1 PHYSICIAN CERTIFICATION: I certify the specified therapy services for Amara Lucero are required, authorized, and reviewed every 30 days.
== END 2020-09-07 15:05 | disposition home or self-care (01) ==
LOC: OT 15:00
PROVIDERS: PCP Emergency Medicine; Visit Provider Orthopaedic Surgery
DX: S53.10 Unspecified subluxation and dislocation of ulnohumeral joint; S59.801D Other specified injuries of right elbow, subsequent encounter
CPT/HCPCS: 97014; 97035; 97110; 97140; 97164; 97166; 97530; G0283

== ENCOUNTER 2020-10-04 19:20 | Emergency (ER) | payer OTHER, SELFPAY ==
[2020-10-04 19:21] VITALS: BP 129/77; PULSE 98; RESP 19; TEMP 36.7; O2SAT 96; BMI 44.1
--- NOTE | 2020-10-04 19:54 | HMH.EDUTC ---
[facility] – [place] Disposition Clinical Impression: Exposure to COVID-19 virus Sinusitis Qualifiers: Sinusitis location: unspecified location Chronicity: acute Recurrence: non-recurrent Qualified Code(s): J01.90 - Acute sinusitis, unspecified Disposition: Home, Self-Care Condition on Discharge: Good Instructions: DI for Sinusitis, Preventing the Spread of Coronavirus Discharge Instructions Additional Instructions: Drink plenty of fluids. Take tylenol or ibuprofen for pain or fever. Take the medications as directed. Follow up with your regular doctor. GO TO THE ER FOR ANY WORSENING SYMPTOMS The cough medication (promethazine dm) will make you drowsy, so don't drive or operate heavy machinery after taking it. Prescriptions: Brompheniramine/Pseudoephed/Dm [Bromfed Dm Cough Syrup] 5 ml PO Q6HP PRN #240 syrup PRN Reason: Cough Transmission Status: Received by [facility] #[id number] guaiFENesin [Mucinex 600mg tablet] 1 - 2 tab PO BIDP PRN #30 tab.er.12h PRN Reason: Congestion Transmission Status: Received by [facility] #[id number] Azithromycin [Z-Eric 250mg Tab*] 250 mg PO UD DOSE PK #6 tab Transmission Status: Received by [facility] #[id number] Referrals: Casandra Oates APRN [Primary Care Provider] - Forms: Work/School Release Time of Disposition: 20:28 Medical Decision Making - Medical Records Medical records reviewed: No: I reviewed the patient's medical records. - Ever Inquiry Pt receiving controlled substance: No Vital Signs: 10/04/20 19:21 10/04/20 20:45 Temperature 98.0 F 98.0 F Temperature Source Oral Pulse Rate 98 H Pulse Rate [Left Radial] 98 H Respiratory Rate 19 19 Blood Pressure 129/77 Blood Pressure [Right Arm] 129/77 Blood Pressure Mean [Right Arm] 94 Blood Pressure Source Automatic Cuff Blood Pressure Source [Right Arm] Automatic Cuff Blood Pressure Position Sitting Blood Pressure Position [Right Arm] Sitting 02 Sat by Pulse Oximetry 96 Oxygen Delivery Method Room Air Orders (Tests/Meds): ED MEDICATIONS Discontinued Medications Generic Name Dose Route Start Last Admin Trade Name Freq PRN Reason Stop Dose Admin Ceftriaxone Sodium 1 gm 10/04/20 20:25 10/04/20 20:35 Ceftriaxone 1gm Vial IM 10/04/20 20:26 1 gm ONCE ONE Administration Protocol Lidocaine HCl 0 ml 10/04/20 20:25 10/04/20 20:35 Lidocaine 1% 5ml Pf Vial IM 10/04/20 20:26 2.1 ml ONCE ONE Administration [facility] [place] HPI - General Stated complaint: possible sinus infection Time Seen by Provider: 10/04/20 19:54 Mode of Arrival: Ambulatory Source of Information: Patient Limitations: No Limitations Description of Symptoms (Recalled from Triage Doc. by RN): c/o runny nose, drainage since Sunday, thinks she has a sinus infection HEENT Symptoms (Recalled from RN notes): Yes Resp Symptoms (Recalled from RN notes): No Skin Symptoms (Recalled from RN notes): No MS Symptoms (Recalled from RN notes): No Functional Status (Recalled from RN notes): wnl - History of Present Illness Provider Complaint: She c/o sinus pressure and drainage for the past 2 days. She denies fever and chills. - Related Data Previous Rx's Medication Instructions Recorded Azithromycin [Z-Eric 250mg Tab*] 250 mg PO UD DOSE PK #6 tab 10/04/20 Brompheniramine/Pseudoephed/Dm 5 ml PO Q6HP PRN #240 syrup 10/04/20 [Bromfed Dm Cough Syrup] guaiFENesin [Mucinex 600mg tablet] 1 - 2 tab PO BIDP PRN #30 10/04/20 tab.er.12h Allergies Allergy/AdvReac Type Severity Reaction Status Date / Time codeine [CODEINE] Allergy Severe S-DIFF. Verified 08/13/20 14:51 BREATHING - Worker's Comp Is this a Worker's Comp case?: No [facility] History - Hepatitis A Screen Drug use history?: No High risk sexual behaviors?: No History of sexually transmitted infection?: No Currently employed?: No Childcare worker?: No Do you have indoor plumbing?: Yes Do you have electricity?: Yes A
[2020-10-04 20:45] VITALS: BP 129/77; PULSE 98; RESP 19; TEMP 36.7; O2SAT 96
== END 2020-10-04 20:47 | disposition home or self-care (01) ==
PROVIDERS: Emergency Provider Nurse Practitioner Family; PCP Nurse Practitioner Family
DX: J01.90 Acute sinusitis, unspecified (principal); Z20.822 Contact with and (suspected) exposure to COVID-19; K21.9 Gastro-esophageal reflux disease without esophagitis; I10 Essential (primary) hypertension; Z87.891 Personal history of nicotine dependence
CPT/HCPCS: 96372; 99202; G0463; U0003

== ENCOUNTER → 2020-10-06 15:09 | Outpatient (CLI) | payer OTHER, SELFPAY ==
[2020-10-06 16:39] VITALS: BMI 44.1
== END ==
PROVIDERS: PCP Nurse Practitioner Family; Visit Provider Nurse Practitioner Family
DX: Z71.3 Dietary counseling and surveillance (principal); E11.9 Type 2 diabetes mellitus without complications
CPT/HCPCS: 97802

== ENCOUNTER 2020-10-07 13:18 | Outpatient (RCR) | payer OTHER, SELFPAY | END 2020-10-07 13:57 | disposition home or self-care (01) | LOC: PT 13:18 | PROVIDERS: Visit Provider Orthopaedic Surgery | DX: G56.01 Carpal tunnel syndrome, right upper limb (principal) | CPT/HCPCS: 97763 ==

== ENCOUNTER 2020-12-22 17:00 | Outpatient (RCR) | payer BC, OTHER, SELFPAY ==
--- NOTE | 2020-12-06 17:49 | HMH.PTOPEV ---
PT Outpatient Evaluation Rehab PT Outpatient Evaluation Start: 12/06/20 16:11 Freq: Status: Active Protocol: Document 12/06/20 16:11 GERALDEDUARDO (Rec: 12/06/20 17:49 JARADMARLON [id number]) Electronically Signed By Serafin Arechiga PT 12/06/20 16:11 Outpatient Therapy Subjective History Subjective History This is the initial Physical Therapey evalaution for Amara Lucero. Pt is a 40 y/o female referred to PT for c/o LBP. Pt reported a sharp stabbing pain in her low back resulting in a fall. Pt reports no previous inuries or causes of back pain prior to this episode. Pt reports sharp localized pain in the L Lumbopelvic region that recently showed numbness in the L foot. Pt reports pain is constant but variable. L side lying was reported to be the only position that relieves pain. Chief Complaint Pain,Gives out/Unstable Symptom Type Sharp,Stabbing,Burning, Numbness,Tingling,Shooting Symptoms Relieved By Rest/Positioning Symptoms Aggravated By Prone,Sitting,Standing,Bending /Stooping,Walking Prior Functional Limitations None Current Functional Limitations Lifting,Housework,Desk Work/ Reading,Sleeping,Standing, Sitting,Recreation Activity, Walking,Bending/Stooping Symptom Description Constant and Continuous Level of pain today (0-10) 7 Pain scale - at its best (0-10) 7 Pain scale - at its worst (0-10) 10 Lumbopelvic Eval Posture Thoracic Spine Posture Standing Position Neutral Lumbar Spine Posture Standing Position Flattened Assistive device Assistive Devices None / NA Gait Observation General Gait Pattern Observation Hips Posterior to MOISES Palapation tenderness left thoracic spinal tenderness Yes: paraspinal lumbar spinal tenderness Yes: Lower lumbar into sacral segments paraspinal tenderness Yes buttock tenderness Yes Lumbar/Sacral Palpation Findings Tenderness Lumbar/Sacral Palpation Overall Comment Very tender in lower lumbar segments. Accessory Movement L-spine Vertebrae Accessory Movements [place] that Elicit Symptoms L4 bilateral L5
== END 2020-12-22 17:05 | disposition home or self-care (01) ==
LOC: PT 17:00
PROVIDERS: PCP Nurse Practitioner Family; Visit Provider Internal Medicine Adolescent Medicine
DX: M54.42 Lumbago with sciatica, left side (principal)
CPT/HCPCS: 97010; 97012; 97014; 97110; 97140; 97163; G0283

== ENCOUNTER → 2021-04-19 17:23 | Outpatient (CLI) | payer BC, OTHER, SELFPAY ==
[2021-04-19 18:11] LABS: Basophils # 0.2 K/mm3 (0-0.2); Basophils % 1.9 % (0.1-2.0); Eosinophils # 0.2 K/mm3 (0.0-0.4); Eosinophils % 1.9 % (0.1-12.0); Hematocrit 45.1 % (37.0-47.0); Hemoglobin 14.7 g/dL (12.2-16.2); Lymphocytes # 3.1 K/mm3 (0.7-4.5); Mean Corpuscular HGB Conc 32.6 g/dL (31.8-35.4); Mean Corpuscular Hemoglobin 30.2 pg (27.0-31.2); Mean Corpuscular Volume 92.6 fl (81-99); Mean Platelet Volume 8.1 fl (7.4-10.4); Monocytes # 0.5 K/mm3 (0.1-1.0); Monocytes % 5.8 % (1.7-9.3); Neutrophils # 4.9 K/mm3 (1.8-7.8); Neutrophils % 55.4 % (37.0-80.0); Platelet Count 453 K/mm3 (142-424); Red Blood Count 4.87 M/mm3 (4.20-5.40); Red Cell Distribution Width 13.4 % (11.5-17.5); White Blood Count 8.8 K/mm3 (4.8-10.8)
[2021-04-19 18:19] LABS: Hemoglobin A1C 11.1 % (4.0-6.0)
[2021-04-19 18:48] LABS: Alanine Aminotransferase 48 U/L (12-78); Albumin Level 4.3 g/dl (3.5-5.0); Albumin/Globulin Ratio 1.5 (1.1-1.8); Alkaline Phosphatase 88 U/L (38-126); Anion Gap 13.6 mEq/L (5-15); Aspartate Amino Transferase 54 U/L (14-36); Bilirubin,Total 0.6 mg/dl (0.2-1.3); Blood Urea Nitrogen 11 mg/dl (7-17); Calcium 9.4 mg/dl (8.4-10.2); Carbon Dioxide 21 mmol/L (22.0-30.0); Chloride 102 mmol/L (98-107); Estimated Glomerular Filt Rate 178 ml/min (>60); GFR (African American) 215 ML/MIN (>60); Globulin 2.8 g/dL (1.3-3.2); Glucose 204 mg/dl (74-100); Potassium 3.6 mmoL/L (3.5-5.1); Sodium 133 mmol/L (136-145); Total Protein,Serum 7.1 g/dl (6.3-8.2)
[2021-04-19 19:11] LABS: 25-OH Vitamin D, Total < 12.8 ng/mL (30-100)
[2021-04-19 19:20] LABS: Thyroid Stimulating Hormone 2.12 uIU/mL (0.465-4.68)
[2021-04-19 19:39] LABS: Vitamin B12 363 pg/mL (239-931)
== END ==
PROVIDERS: PCP Nurse Practitioner Family; Visit Provider Nurse Practitioner Family
DX: I10 Essential (primary) hypertension (principal); E11.9 Type 2 diabetes mellitus without complications; R53.83 Other fatigue; E55.9 Vitamin D deficiency, unspecified; K64.4 Residual hemorrhoidal skin tags
CPT/HCPCS: 36415; 80053; 82306; 82607; 83036; 84443; 85025

== ENCOUNTER 2021-05-10 11:06 | Day surgery (SDC) | payer BC, OTHER, SELFPAY ==
[2021-05-09 09:32] VITALS: BMI 45.9
[2021-05-10] VITALS (7 sets, daily range): BP systolic 124–148; BP diastolic 77–97; PULSE 88–107; RESP 18; TEMP 36.4–36.7; O2SAT 93–95
--- NOTE | 2021-05-10 11:45 | HMH.ANESCL ---
[facility] Anesthesia Checklist - Patient Identification Patient Identification: Arm Band, Verbal (Name & ) - Structural Data Admitted From: Home Planned Operative Procedure/s: Colonoscopy Consent for Planned Operative Procedure(s) Verified: Yes Verified Documents: Surgical Consent - NPO Status Verified Time NPO: 00:00 - Airway Assessment C-Spine Mobility Assessed: Yes TMJ Mobility Assessed: Yes Dentition: Good Dentition - Anesthesia Plan Anesthesia Risk discussed: Yes ASA Class: III Anesthesia Type: MAC [facility] History I have reviewed the patient's past medical history: Yes Medical History: Reports:: Diabetes Mellitus Type 2, Gastroesophageal Reflux Disease(GERD), Hypertension, Migraine, Palpitations, Ulcer Denies:: Cancer, Diabetes Mellitus Type 1, Gastrointestinal Bleed, Internal Pacemaker, MRSA, Seizures *Have you ever received a pneumonia vaccine?: No *Have you received a flu vaccine this season?: No Other Medical History: Reports: Arthritis Anesthesia experience/problems:: none Laterality Cases: Bilateral: Tonsillectomy Other Surgeries: Yes: No Previous Surgery, Cholecystectomy, Dilation and Curettage, Hysterectomy-Total, Other. No: Pacemaker Amputation: No - *Social History Last grade of school completed: Some college Smoking Status: Former smoker Tobacco Type: cigarettes Alcohol Intake: never Substance Use Type: denies use *Occupational Status:: employed Housing: house *Travel in the last 8 weeks: None Family Hx:: Cancer, Diabetes, Heart Attack
--- NOTE | 2021-05-10 11:52 | HMH.SCOPE ---
- Procedure: Date: 05/10/21 Patient Date of :: 1980 Procedure Performed:: Colonoscopy Indications:: Bright red blood per rectum Hemorrhoids Performing Provider:: Andres Christianson MD Referring Provider:: . Sedation:: Monitored anesthesia care Procedure:: After informed consent was obtained the patient was taken to the endoscopy suite. Sedation ensued after the patient was transferred to the left lateral decubitus position. Pulse, blood pressure, and oxygen saturation were monitored throughout the procedure. Digital rectal exam revealed no significant abnormality. The colonoscope was placed in position. The entire colon was evaluated. The colonoscope was carefully removed and the patient was transferred to recovery in stable condition. Please see findings and specimens below for detail. Findings:: Bowel preparation moderate to poor Fairly large hemorrhoidal cushions/tags Internal and external component to hemorrhoids with external component being most pronounced No active bleeding Specimens:: None Recommendations:: Discussion with regard to medical and surgical management of hemorrhoids will be ongoing Complications:: No immediate Estimated blood obtained (mL): 0
[2021-12-08 10:57] LABS: POC Glucose,Bedside 148 (70-110)
== END 2021-05-10 12:31 | disposition home or self-care (01) ==
LOC: OUTP 11:07
PROVIDERS: PCP Nurse Practitioner Family; Visit Provider Surgery
PROC: 0DJD8ZZ Inspection of Lower Intestinal Tract, Via Natural or Artificial Opening Endoscopic (ICD-10-PCS; CPT 45378; principal; 2021-05-10 12:00)
DX: K62.5 Hemorrhage of anus and rectum (principal); K64.9 Unspecified hemorrhoids; E11.9 Type 2 diabetes mellitus without complications; K21.9 Gastro-esophageal reflux disease without esophagitis; I10 Essential (primary) hypertension; G43.909 Migraine, unspecified, not intractable, without status migrainosus; R00.2 Palpitations; M19.90 Unspecified osteoarthritis, unspecified site; Z87.891 Personal history of nicotine dependence; Z80.9 Family history of malignant neoplasm, unspecified; Z88.6 Allergy status to analgesic agent; Z79.899 Other long term (current) drug therapy
CPT/HCPCS: 45378; 82962

== ENCOUNTER 2021-06-13 18:43 | Emergency (ER) | payer BC, OTHER, SELFPAY ==
[2021-06-13 18:50] VITALS: PULSE 102; RESP 20; O2SAT 98; BMI 44.6
[2021-06-13 20:34] VITALS: BP 148/96; PULSE 107; RESP 19; TEMP 36.7; O2SAT 96; BMI 44.6
--- NOTE | 2021-06-13 20:46 | HMH.EDUTC ---
[facility] [place] Clinical Impression: Allergic reaction Qualifiers: Encounter type: initial encounter Qualified Code(s): T78.40XA - Allergy, unspecified, initial encounter Disposition: Home, Self-Care Condition on Discharge: Good Instructions: DI for General Allergic Reactions Additional Instructions: Avoid contact with the offending substance. Don't put the topical steroids (triamcinolone) on your face or your groin. Follow up with your regular doctor. GO TO THE ER FOR ANY WORSENING SYMPTOMS OR CONCERNS Prescriptions: diphenhydrAMINE HCL [Diphenhydramine HCl] 25 mg PO Q6HP PRN #30 cap PRN Reason: Itching Transmission Status: Received by [facility] # methylPREDNISolone [Medrol] 4 mg PO DIRECTED 6 Days #21 packet Transmission Status: Received by [facility] # Triamcinolone Acetonide 1 applicatio TP TIDP PRN 7 Days #1 gm PRN Reason: Itching Transmission Status: Received by [facility] #[id number] Referrals: Casandra Oates APRN [Primary Care Provider] - Forms: Work/School Release Time of Disposition: 21:24 Medical Decision Making - Medical Records Medical records reviewed: No: I reviewed the patient's medical records. - Ever Inquiry Pt receiving controlled substance: No Vital Signs: 06/13/21 18:50 06/13/21 20:34 06/13/21 21:34 Temperature 98.1 F 98.1 F Temperature Source Oral Oral Pulse Rate 107 H Pulse Rate [Left Radial] 102 H 107 H Respiratory Rate 20 19 18 Blood Pressure 148/96 H Blood Pressure [Right Arm] 148/96 H Blood Pressure Mean [Right Arm] 113 Blood Pressure Source Manual Cuff/ Doppler Blood Pressure Source [Right Arm] Automatic Cuff Blood Pressure Position Sitting Blood Pressure Position [Right Arm] Sitting 02 Sat by Pulse Oximetry 98 96 Oxygen Delivery Method Room Air Room Air Room Air Orders (Tests/Meds): ED MEDICATIONS Discontinued Medications Generic Name Dose Route Start Last Admin Trade Name Freq PRN Reason Stop Dose Admin Prednisone 30 mg 06/13/21 21:19 06/13/21 21:22 Prednisone 20mg Tab PO 06/13/21 21:20 30 mg ONCE ONE Administration [facility] [place] - General Stated complaint: rash on stomach and right leg Time Seen by Provider: 06/13/21 19:00 Mode of Arrival: Ambulatory Source of Information: Patient Limitations: No Limitations HEENT Symptoms (Recalled from RN notes): No Resp Symptoms (Recalled from RN notes): No Skin Symptoms (Recalled from RN notes): Yes (rash) MS Symptoms (Recalled from RN notes): No Functional Status (Recalled from RN notes): n/a - History of Present Illness Provider Complaint: She has a rash that itches on her abdomen and her right thigh. She denies any known contact with something she is allergic to. - Related Data Home Medications Medication Instructions Recorded Confirmed Empagliflozin [Jardiance] 10 mg PO DAILY 05/09/21 05/09/21 Losartan Potassium 25 mg PO DAILY 05/09/21 05/09/21 Previous Rx's Medication Instructions Recorded Triamcinolone Acetonide 1 applicatio TP TIDP PRN 7 Days #1 06/13/21 gm diphenhydrAMINE HCL 25 mg PO Q6HP PRN #30 cap 06/13/21 [Diphenhydramine HCl] methylPREDNISolone [Medrol] 4 mg PO DIRECTED 6 Days #21 06/13/21 packet Allergies Allergy/AdvReac Type Severity Reaction Status Date / Time codeine [CODEINE] Allergy Severe S-DIFF. Verified 06/13/21 20:38 BREATHING - Worker's Comp Is this a Worker's Comp case?: No [facility] History - Hepatitis A Screen Drug use history?: No High risk sexual behaviors?: No History of sexually transmitted infection?: No Currently employed?: No Childcare worker?: No Do you have indoor plumbing?: Yes Do you have electricity?: Yes Attestation statement:: This patient has been screened for Hepatitis A risk factors. I have reviewed the patient's past medical history: Yes Medical History: Reports:: Diabetes Mellitus Type 2, Gastroesophageal Reflux Disease(GE
[2021-06-13 21:34] VITALS: BP 148/96; PULSE 107; RESP 18; TEMP 36.7; O2SAT 96
== END 2021-06-13 21:34 | disposition home or self-care (01) ==
PROVIDERS: Emergency Provider Nurse Practitioner Family; PCP Nurse Practitioner Family
DX: T78.40XA Allergy, unspecified, initial encounter (principal)
CPT/HCPCS: 99212; G0463

== ENCOUNTER 2021-07-09 18:22 | Emergency (ER) | payer BC, OTHER, SELFPAY ==
[2021-07-09 18:35] VITALS: BP 128/67; PULSE 87; RESP 19; TEMP 36.6; O2SAT 98; BMI 43.9
--- NOTE | 2021-07-09 18:36 | XR_ITS ---
PROCEDURE INFORMATION: Exam: XR Right Ankle Exam date and time: 07/09/2021 6:47 PM Age: 40 years old Clinical indication: Pain; Ankle; Right; Additional info: Fell in a hole and twisted it TECHNIQUE: Imaging protocol: XR Right ankle. Views: 3 or more views. COMPARISON: No relevant prior studies available. FINDINGS: Bones/joints: Calcaneus enthesophyte in the plantar tendon. No acute fracture or dislocation. Soft tissues: Normal. IMPRESSION: No acute fracture or dislocation.
--- NOTE | 2021-07-09 18:36 | XR_ITS ---
PROCEDURE INFORMATION: Exam: XR Right Foot Exam date and time: 07/09/2021 6:49 PM Age: 40 years old Clinical indication: Pain; Foot; Right; Additional info: Fell in a hole and twisted it TECHNIQUE: Imaging protocol: XR Right foot. Views: 3 or more views. COMPARISON: CR XR ANKLE RT MIN 3V 07/09/2021 6:47 PM FINDINGS: Bones/joints: Calcaneus enthesophyte in the plantar tendon. No acute fracture or dislocation. Soft tissues: Normal. IMPRESSION: No acute fracture or dislocation.
--- NOTE | 2021-07-09 19:12 | HMH.EDUTC ---
[facility] [place] Disposition Clinical Impression: Ankle sprain Qualifiers: Encounter type: initial encounter Involved ligament of ankle: other ligament Laterality: right Qualified Code(s): S93.491A - Sprain of other ligament of right ankle, initial encounter Foot sprain Qualifiers: Encounter type: initial encounter Laterality: right Qualified Code(s): S93.601A - Unspecified sprain of right foot, initial encounter Disposition: Home, Self-Care Condition on Discharge: Good Instructions: How To Perform RICE (Rest, Ice, Compress, Elevate), Ibuprofen, How to Use a Walking Boot Additional Instructions: *weight bearing as tolerated *RICE, Rest the extremity, Ice 15-20 minutes 3-4 times daily, Compress- wear the mary wrap as discussed as much as possible to help reduce swelling and pain, Elevate the extremity when at rest *Walking boot is for support and help control swelling, use it except in the shower. Be sure that is not to tight but not to loose either *Elevate when resting *Ibuprofen 600-800mg every 6-8 hours as needed for pain an inflammation. If need something more can take Tylenol in between doses of Ibuprofen to help Immediately follow up with your family doctor for new or worsening of symptoms, or no noticeable improvement over the next 3-5 days Referrals: Casandra Oates APRN [Primary Care Provider] - As needed Reji Garcia MD [Staff Physician] - As needed Time of Disposition: 19:21 Medical Decision Making - Ever Inquiry Pt receiving controlled substance: No Ever was queried for this patient: No Vital Signs: 07/09/21 18:35 07/09/21 19:25 Temperature 97.8 F 97.8 F Temperature Source Oral Pulse Rate 87 Pulse Rate [Right Brachial] 87 Respiratory Rate 19 19 Blood Pressure 128/67 Blood Pressure [Right Arm] 128/67 Blood Pressure Mean [Right Arm] 87 Blood Pressure Source [Right Arm] Automatic Cuff Blood Pressure Position [Right Arm] Sitting 02 Sat by Pulse Oximetry 98 Oxygen Delivery Method Room Air - Radiology Data #1 Image(s): Ankle Image Reviewed: Yes I reviewed the patient's radiology image Preliminary Findings: No Fracture Seen #2 Image(s): Foot/Toes Image Reviewed: Yes I reviewed the patient's radiology image Preliminary Findings: No Fracture Seen [facility] [place] HPI - General Stated complaint: AO04/30 r foot injury Time Seen by Provider: 07/09/21 19:12 Mode of Arrival: Ambulatory Source of Information: Patient Limitations: No Limitations Description of Symptoms (Recalled from Triage Doc. by RN): PATIENT STATES SHE FELL IN A HOLE TODAY AND TWISTED HER RIGHT FOOT/ANKLE HEENT Symptoms (Recalled from RN notes): No Resp Symptoms (Recalled from RN notes): No Skin Symptoms (Recalled from RN notes): No MS Symptoms (Recalled from RN notes): Yes Functional Status (Recalled from RN notes): WNL - History of Present Illness Provider Complaint: Patient states that she stepped in a hole today and twisted her right foot and ankle States that ever since she has been having pain in her foot and ankle that is worse with walking - Related Data Home Medications Medication Instructions Recorded Confirmed Empagliflozin [Jardiance] 10 mg PO DAILY 05/09/21 05/09/21 Losartan Potassium 25 mg PO DAILY 05/09/21 05/09/21 Previous Rx's Medication Instructions Recorded Triamcinolone Acetonide 1 applicatio TP TIDP PRN 7 Days #1 06/13/21 gm diphenhydrAMINE HCL 25 mg PO Q6HP PRN #30 cap 06/13/21 [Diphenhydramine HCl] methylPREDNISolone [Medrol] 4 mg PO DIRECTED 6 Days #21 06/13/21 packet Allergies Allergy/AdvReac Type Severity Reaction Status Date / Time codeine [CODEINE] Allergy Severe S-DIFF. Verified 06/13/21 20:38 BREATHING - Worker's Comp Is this a Worker's Comp case?: No [facility] History - Hepatitis A Screen Attestation statement:: This patient has been screened for Hepatitis A risk factors. I have reviewed the patient's past medical history: Yes Medical History: Re
[2021-07-09 19:25] VITALS: BP 128/67; PULSE 87; RESP 19; TEMP 36.6; O2SAT 98
== END 2021-07-09 19:34 | disposition home or self-care (01) ==
PROVIDERS: Emergency Provider Nurse Practitioner; PCP Nurse Practitioner Family
DX: S93.491A Sprain of other ligament of right ankle, initial encounter (principal); S93.601A Unspecified sprain of right foot, initial encounter; R00.2 Palpitations; R45.1 Restlessness and agitation; I10 Essential (primary) hypertension; K21.9 Gastro-esophageal reflux disease without esophagitis; E11.9 Type 2 diabetes mellitus without complications; G43.909 Migraine, unspecified, not intractable, without status migrainosus; M19.90 Unspecified osteoarthritis, unspecified site; L98.499 Non-pressure chronic ulcer of skin of other sites with unspecified severity; Z79.52 Long term (current) use of systemic steroids; Z79.899 Other long term (current) drug therapy; Z87.891 Personal history of nicotine dependence; Z82.49 Family history of ischemic heart disease and other diseases of the circulatory system; Z80.9 Family history of malignant neoplasm, unspecified; Z83.3 Family history of diabetes mellitus; X50.1XXA Overexertion from prolonged static or awkward postures, initial encounter
CPT/HCPCS: 29515; 73610; 73630; 99284

== ENCOUNTER → 2021-07-22 10:17 | Outpatient (CLI) | payer BC, OTHER, SELFPAY | PROVIDERS: PCP Internal Medicine Adolescent Medicine; Visit Provider Nurse Practitioner Family | DX: G47.33 Obstructive sleep apnea (adult) (pediatric) (principal); G47.10 Hypersomnia, unspecified; R06.83 Snoring | CPT/HCPCS: 95806 ==

== ENCOUNTER 2021-12-11 12:05 | Emergency (ER) | payer BC, OTHER, SELFPAY ==
--- NOTE | 2021-12-11 12:12 | XR_ITS ---
PROCEDURE INFORMATION: Exam: XR Right Knee Exam date and time: 12/11/2021 12:51 PM Age: 41 years old Clinical indication: Patient HX: Right knee pain and swelling for 4+ days. No known injury. Patient is a diabetic. She states she has fluid buildup around joints. Shielded. TECHNIQUE: Imaging protocol: Radiologic exam of the Right knee. Views: 3 views. COMPARISON: CR XR FOOT RT MIN 3V 07/09/2021 6:49 PM FINDINGS: Bones/joints: Mild degenerative change. Anatomic alignment. Soft tissues: Unremarkable soft tissues. IMPRESSION: Mild degenerative change.
[2021-12-11 12:25] VITALS: BP 154/92; PULSE 93; RESP 18; TEMP 36.5; O2SAT 97; BMI 44.9
--- NOTE | 2021-12-11 12:36 | EXP.UTC ---
Discharge Plan Disposition Patient Disposition: Home, Self-Care Condition: Good Prescriptions Prescriptions: No Action losartan 25 MG tablet 25 mg PO DAILY empagliflozin 10 MG tablet 10 mg PO DAILY triamcinolone acetonide 15 GM cream 1 applicatio TP TIDP PRN (Reason: Itching) 7 Days Qty: 1 0RF Rx Instructions: 0.025% diphenhydramine HCl 25 MG capsule 25 mg PO Q6HP PRN (Reason: Itching) Qty: 30 0RF methylprednisolone 4 MG tablets,dose pack 4 mg PO DIRECTED 6 Days Qty: 21 0RF Referrals Follow up/Referrals: Casandra Oates APRN [Primary Care Provider] - See instructions Activity Restrictions/Add. Instructions Additional Instructions/Restrictions: *weight bearing as tolerated *RICE, Rest the extremity, Ice 15-20 minutes 3-4 times daily, Compress- wear the hero wrap as discussed as much as possible to help reduce swelling and pain, Elevate the extremity when at rest *Hero wrap/Knee brace is for support and help control swelling, use it except in the shower. Be sure that is not to tight but not to loose either *Elevate when resting? *Ibuprofen every 6-8 hours as needed for pain an inflammation. If need something more can take Tylenol in between doses of Ibuprofen to help Immediately follow up with your family doctor for new or worsening of symptoms, or no noticeable improvement over the next 3-5 days Clinical Impressions Clinical Impression: Knee pain Stand Alone Forms Stand Alone Forms: Work/School Release Instructions Patient Instructions: DI for Knee Pain Discharge ED Provider: Ruma Rajan [facility] General Stated complaint: pain in Rt knee, swelling Mode of Arrival: Ambulatory Source of Information: Patient Limitations: No Limitations Time Seen by Provider: 12/11/21 12:36 Description of Symptoms (Recalled from Triage Doc. by RN): PATIENT C/O PAIN AND SWELLING TO RIGHT KNEE X 1 WEEK. NO KNOWN INJURY HEENT Symptoms (Recalled from RN notes): No Resp Symptoms (Recalled from RN notes): No Skin Symptoms (Recalled from RN notes): No MS Symptoms (Recalled from RN notes): Yes Functional Status (Recalled from RN notes): WNL History of Present Illness Provider Complaint: Patient states that she has been having pain and swelling in her right knee for over a week States that she has had pain on and off for a couple years in the right knee after hurting it years ago but usually only hurts a few days then goes away States that for the last week it has not went away like before so she came in to get it checked out Denies known injury Related Data Home Medications Medication Instructions Recorded Confirmed empagliflozin 10 mg tablet 10 mg PO DAILY Diabetes 05/09/21 05/09/21 losartan 25 mg tablet 25 mg PO DAILY BP 05/09/21 05/09/21 Previous Rx's Medication Instructions Recorded diphenhydramine HCl 25 mg capsule 25 mg PO Q6HP PRN Itching #30 caps 06/13/21 methylprednisolone 4 mg tablets in 4 mg PO DIRECTED 6 days #21 06/13/21 a dose pack packets triamcinolone acetonide 0.025 % 1 applicatio TP TIDP PRN Itching 7 06/13/21 topical cream days ##1 Allergies Allergy/AdvReac Type Severity Reaction Status Date / Time codeine [CODEINE] Allergy Severe S-DIFF. Verified 06/13/21 20:38 BREATHING Worker's Comp Is this a Worker's Comp case?: No PFSH PFSH Medical History (Updated 12/11/21 @ 13:40 by Ruma Rajan APRN) Diabetes mellitus, type 2 Former heavy tobacco smoker Gastroesophageal reflux disease Hypertension Obesity Restless sleeper Snoring Surgical History (Updated 12/11/21 @ 12:33 by Audra Pickett RN) History of cholecystectomy History of hysterectomy Social History Smoking Status: Former smoker alcohol intake: never substance use type: denies use current occupational status: employed Travel in the last 8 weeks: None housing: house current occupation: [employer]
[2021-12-11 13:48] VITALS: BP 154/92; PULSE 93; RESP 18; TEMP 36.5; O2SAT 97
== END 2021-12-11 13:54 | disposition home or self-care (01) ==
PROVIDERS: Emergency Provider Nurse Practitioner; PCP Nurse Practitioner Family
DX: M25.561 Pain in right knee (principal)
CPT/HCPCS: 73562; 99212; G0463

== ENCOUNTER 2022-02-09 14:47 | Emergency (ER) | payer BC, OTHER, SELFPAY ==
[2022-02-09 16:00] VITALS: BP 142/91; PULSE 101; RESP 18; TEMP 36.6; O2SAT 98; BMI 43.2
--- NOTE | 2022-02-09 16:22 | EXP.UTC ---
Discharge Plan Disposition Patient Disposition: Home, Self-Care Condition: Good Prescriptions Prescriptions: New azithromycin [Zithromax Z-Eric] 250 mg tablet See Rx Instructions .ROUTE .COMPLEX 5 Days Qty: 6 0RF Rx Instructions: For 250 mg dose pack: take 500 mg today (day 1), then 250 mg for 4 days (days 2-5) fluticasone propionate [Flonase Allergy Relief] 50 mcg/actuation spray,suspension 1 spray intranasal DAILY Qty: 16 0RF Rx Instructions: administer into each nostril No Action losartan 25 MG tablet 25 mg PO DAILY empagliflozin 10 MG tablet 10 mg PO DAILY triamcinolone acetonide 15 GM cream 1 applicatio TP TIDP PRN (Reason: Itching) 7 Days Qty: 1 0RF Rx Instructions: 0.025% diphenhydramine HCl 25 MG capsule 25 mg PO Q6HP PRN (Reason: Itching) Qty: 30 0RF methylprednisolone 4 MG tablets,dose pack 4 mg PO DIRECTED 6 Days Qty: 21 0RF Referrals Follow up/Referrals: Casandra Oates APRN [Primary Care Provider] - See instructions Activity Restrictions/Add. Instructions Additional Instructions/Restrictions: Take medications as prescribed Follow up with your Family Doctor if no improvement or any worsening of symptoms Return if needed Straight to ER if any life threatening symptoms Clinical Impressions Clinical Impression: Sinusitis Qualifiers: Sinusitis location: unspecified location Chronicity: unspecified Qualified Code(s): J32.9 - Chronic sinusitis, unspecified Instructions Patient Instructions: Sinusitis, DI for Sinusitis Discharge ED Provider: Ruma Rajan [facility] General Stated complaint: ALVARADO Mode of Arrival: Ambulatory Source of Information: Patient Limitations: No Limitations Time Seen by Provider: 02/09/22 16:22 Description of Symptoms (Recalled from Triage Doc. by RN): PATIENT C/O HEADACHE AND FEELS LIKE SHE IS GETTING A HEAD COLD X 2 DAYS HEENT Symptoms (Recalled from RN notes): Yes Resp Symptoms (Recalled from RN notes): No Skin Symptoms (Recalled from RN notes): No MS Symptoms (Recalled from RN notes): No Functional Status (Recalled from RN notes): WNL History of Present Illness Provider Complaint: Patient state that she has a history of Migraines States that she has been having a headache for the last couple of days and having sinus pain and pressure that is making it worse States that she is blowing thick yellowish green from her nose Related Data Home Medications Medication Instructions Recorded Confirmed empagliflozin 10 mg tablet 10 mg PO DAILY Diabetes 05/09/21 05/09/21 losartan 25 mg tablet 25 mg PO DAILY BP 05/09/21 05/09/21 Previous Rx's Medication Instructions Recorded diphenhydramine HCl 25 mg capsule 25 mg PO Q6HP PRN Itching #30 caps 06/13/21 methylprednisolone 4 mg tablets in 4 mg PO DIRECTED 6 days #21 06/13/21 a dose pack packets triamcinolone acetonide 0.025 % 1 applicatio TP TIDP PRN Itching 7 06/13/21 topical cream days ##1 azithromycin 250 mg tablet See Rx Instructions PO .COMPLEX 5 02/09/22 (Zithromax Z-Eric) days #6 tabs fluticasone propionate 50 1 spray intranasal DAILY #16 grams 02/09/22 mcg/actuation nasal spray,suspension (Flonase Allergy Relief) Allergies Allergy/AdvReac Type Severity Reaction Status Date / Time codeine [CODEINE] Allergy Severe S-DIFF. Verified 06/13/21 20:38 BREATHING Worker's Comp Is this a Worker's Comp case?: No [facility] Disclaimer: The information contained in this section may have been updated after the patient was seen, as this information can be updated by other users. Medical History (Updated 02/09/22 @ 16:33 by Ruma Rajan APRN) Diabetes mellitus, type 2 Former heavy tobacco smoker Gastroesophageal reflux disease Hypertension Obesity Restless sleeper Snoring Surgical History History of cholecystectomy History of hysterectomy Social History (Updated
[2022-02-09 16:39] VITALS: BP 142/91; PULSE 101; RESP 18; TEMP 36.6; O2SAT 98
== END 2022-02-09 16:56 | disposition home or self-care (01) ==
PROVIDERS: Emergency Provider Nurse Practitioner; PCP Nurse Practitioner Family
DX: J32.9 Chronic sinusitis, unspecified (principal)
CPT/HCPCS: 96372; 99212; G0463

== ENCOUNTER 2022-02-11 21:33 | Emergency (ER) | payer BC, OTHER, SELFPAY ==
--- NOTE | 2022-02-11 21:32 | ECG_ITS ---
APPROVED REPORT Exam: Resting ECG HR:118 bpm ECG Measurements Heart Rate 118 AXES MS 151 P 65 QRSd 100 QRS 83 QT 317 T 53 QTc 387 Conclusion SINUS TACHYCARDIA ABNORMAL RHYTHM ECG UNCONFIRMED REPORT Electronically signed by : Oscar Huerta MD 02/12/2022 09:32:49
[2022-02-11 21:33] VITALS: BP 146/108; PULSE 98; RESP 20; TEMP 36.7; O2SAT 98; BMI 46.5
--- NOTE | 2022-02-11 22:02 | CT_ITS ---
PROCEDURE INFORMATION: Exam: CTA Chest With Contrast Exam date and time: 02/11/2022 10:10 PM Age: 41 years old Clinical indication: Shortness of breath; Additional info: SOA, chest pressure TECHNIQUE: Imaging protocol: Computed tomographic angiography of the chest with contrast. 3D rendering (Not supervised by radiologist): MIP and/or 3D reconstructed images were created by the technologist. Radiation optimization: All CT scans at this facility use at least one of these dose optimization techniques: automated exposure control; mA and/or kV adjustment per patient size (includes targeted exams where dose is matched to clinical indication); or iterative reconstruction. Contrast material: ISOVUE 370; Contrast volume: 70 ml; Contrast route: INTRAVENOUS (IV); COMPARISON: CR XR CHEST 2V 02/11/2022 10:08 PM FINDINGS: Pulmonary arteries: Normal. No pulmonary emboli. Aorta: Unremarkable. No aortic aneurysm. No aortic dissection. Lungs: Unremarkable. No consolidation. No masses. Pleural spaces: Unremarkable. No pneumothorax. No pleural effusion. Heart: Unremarkable. No cardiomegaly. No pericardial effusion. Lymph nodes: Unremarkable. No enlarged lymph nodes. Bones/joints: Unremarkable. No acute fracture. Soft tissues: Unremarkable. IMPRESSION: No acute findings.
--- NOTE | 2022-02-11 22:02 | XR_ITS ---
PROCEDURE INFORMATION: Exam: XR Chest Exam date and time: 02/11/2022 10:08 PM Age: 41 years old Clinical indication: Shortness of breath; Additional info: SOA, chest pressure TECHNIQUE: Imaging protocol: Radiologic exam of the chest. Views: 2 views. COMPARISON: CR XR CHEST 2V 04/17/2019 1:01 AM FINDINGS: Lungs: Unremarkable. No consolidation. Pleural spaces: Unremarkable. No pleural effusion. No pneumothorax. Heart/Mediastinum: Unremarkable. No cardiomegaly. Bones/joints: Unremarkable. IMPRESSION: No acute findings.
[2022-02-11 22:10] LABS: Coronavirus 19, PCR Not Detected (NotDetected); Influenza A, PCR Not Detected (NotDetected); Influenza B, PCR Not Detected (NotDetected)
[2022-02-11 22:13] LABS: Chloride 101 mmol/L (98-107); Potassium 4.1 mmoL/L (3.5-5.1); Sodium 130 mmol/L (136-145)
[2022-02-11 22:16] LABS: Alanine Aminotransferase 37 U/L (12-78); Alkaline Phosphatase 116 U/L (38-126); Anion Gap 10.1 mEq/L (5-15); Aspartate Amino Transferase 32 U/L (14-36); Bilirubin,Direct 0.3 mg/dl (0.0-0.4); Bilirubin,Indirect 0.2 mg/dL (0.0-0.9); Bilirubin,Total 0.5 mg/dl (0.2-1.3); Bilirubin,Unconjugated 0.2 mg/dL (0.0-1.1); Blood Urea Nitrogen 12 mg/dl (7-17); Calcium 9.5 mg/dl (8.4-10.2); Carbon Dioxide 23 mmol/L (22.0-30.0); Creatinine Clearance Estimated 84 mL/min (50-200); Estimated Glomerular Filt Rate 79 ml/min (>60); GFR (African American) 96 ML/MIN (>60); Glucose 321 mg/dl (74-100); Total Protein,Serum 6.8 g/dl (6.3-8.2)
[2022-02-11 22:21] LABS: C-Reactive Protein 17.4 mg/L (0-4)
[2022-02-11 22:26] LABS: NT Pro Brain Natriuretic Pep. 32.2 pg/mL (0-125)
[2022-02-11 22:30] LABS: Troponin I < 0.01 ng/ml (0.00-0.034)
[2022-02-11 22:33] LABS: Basophils # 0.2 K/mm3 (0-0.2); Basophils % 0.9 % (0.1-2.0); Eosinophils # 0.3 K/mm3 (0.0-0.4); Eosinophils % 2.1 % (0.1-12.0); Hematocrit 48.6 % (37.0-47.0); Hemoglobin 16.1 g/dL (12.2-16.2); Lymphocytes # 3.8 K/mm3 (0.7-4.5); Lymphocytes % 23.3 % (10-50); Mean Corpuscular HGB Conc 33.2 g/dL (31.8-35.4); Mean Corpuscular Hemoglobin 29.7 pg (27.0-31.2); Mean Corpuscular Volume 89.6 fl (81-99); Mean Platelet Volume 8.1 fl (7.4-10.4); Monocytes # 0.9 K/mm3 (0.1-1.0); Monocytes % 5.6 % (1.7-9.3); Neutrophils # 11.1 K/mm3 (1.8-7.8); Neutrophils % 68.1 % (37.0-80.0); Platelet Count 426 K/mm3 (142-424); Red Blood Count 5.42 M/mm3 (4.20-5.40); Red Cell Distribution Width 13.2 % (11.5-17.5); White Blood Count 16.3 K/mm3 (4.8-10.8)
[2022-02-11 22:39] LABS: MANUAL DIFFERENTIAL MANUAL DIFFERENTIAL (MANUAL DIFF)
[2022-02-11 22:49] LABS: Lymphocytes % 22 % (10-50); Monocytes % 5 % (2-9); Neutrophils % 67 % (42-76); Platelet Estimate Normal; RBC Morphology Normal; Total Cells Counted 100
--- NOTE | 2022-02-11 23:03 | HMH.EDCP ---
Discharge Plan Disposition Patient Disposition: Home, Self-Care Prescriptions Prescriptions: New pantoprazole [Protonix] 40 mg tablet,delayed release (DR/EC) 40 mg PO DAILY Qty: 30 0RF No Action losartan 25 MG tablet 25 mg PO DAILY empagliflozin 10 MG tablet 10 mg PO DAILY azithromycin [Zithromax Z-Eric] 250 mg tablet See Rx Instructions .ROUTE .COMPLEX 5 Days Qty: 6 0RF Rx Instructions: For 250 mg dose pack: take 500 mg today (day 1), then 250 mg for 4 days (days 2-5) fluticasone propionate [Flonase Allergy Relief] 50 mcg/actuation spray,suspension 1 spray intranasal DAILY Qty: 16 0RF Rx Instructions: administer into each nostril triamcinolone acetonide 15 GM cream 1 applicatio TP TIDP PRN (Reason: Itching) 7 Days Qty: 1 0RF Rx Instructions: 0.025% diphenhydramine HCl 25 MG capsule 25 mg PO Q6HP PRN (Reason: Itching) Qty: 30 0RF methylprednisolone 4 MG tablets,dose pack 4 mg PO DIRECTED 6 Days Qty: 21 0RF Referrals Follow up/Referrals: Casandra Oates APRN [Primary Care Provider] - See instructions Clinical Impressions Clinical Impression: Chest pain Instructions Patient Instructions: DI for Atypical Chest Pain Discharge ED Provider: Alberto Peters Chest Pain HPI General Chief Complaint: Chest Pain Stated Complaint: chest pain Time Seen by Provider: 02/11/22 23:03 Mode of Arrival: Family Vehicle Source of Information: Patient and Medical Record Limitations: No Limitations Description of Symptoms (Recalled from ER Triage Doc. by RN): Pt c/o chest heaviness like a elephant sitting on my chest making so I can't berathe . Pt states she was seen in [facility] 02/09 for a headache and congestion. Pt reports this pain began this am but noted I had a lot of plegm . Denies fever, chillls, or n/v/d. History of Present Illness HPI narrative: ant chest pain today since this afternoon with rad to back and has no known ht dis - has diabetes and no tob use - no def inc /dec factors - has hx of gerd complaint: chest pain Onset (ago): hour(s) Duration: constant Activity at onset: during rest Pain location: left chest Severity: moderate Quality: heaviness Pain radiation: back Risk Factors for CAD: Hypertension, Family Hx of CAD and Diabetes Treatments prior to or on arrival for Cardiac Chest Pain: none CELESTE Score for Non-Stemi Age of Patient: 40-49 years old Heart Rate: 110-149 bpm Systolic Blood Pressure: 120-139 mmhg Serum Creatinine: 0.80-1.19 mg/dl CHF Killip Class: I-No CHF Other Risk Factors: None Non-Stemi Risk Score: 90 Related Data On Oral Contraceptives: No Home Medications Medication Instructions Recorded Confirmed empagliflozin 10 mg tablet 10 mg PO DAILY Diabetes 05/09/21 05/09/21 losartan 25 mg tablet 25 mg PO DAILY BP 05/09/21 05/09/21 Previous Rx's Medication Instructions Recorded diphenhydramine HCl 25 mg capsule 25 mg PO Q6HP PRN Itching #30 caps 06/13/21 methylprednisolone 4 mg tablets in 4 mg PO DIRECTED 6 days #21 06/13/21 a dose pack packets triamcinolone acetonide 0.025 % 1 applicatio TP TIDP PRN Itching 7 06/13/21 topical cream days ##1 azithromycin 250 mg tablet See Rx Instructions PO .COMPLEX 5 02/09/22 (Zithromax Z-Eric) days #6 tabs fluticasone propionate 50 1 spray intranasal DAILY #16 grams 02/09/22 mcg/actuation nasal spray,suspension (Flonase Allergy Relief) pantoprazole 40 mg tablet,delayed 40 mg PO DAILY #30 tabs 02/12/22 release (Protonix) Allergies Allergy/AdvReac Type Severity Reaction Status Date / Time codeine [CODEINE] Allergy Severe S-DIFF. Verified 06/13/21 20:38 BREATHING PFSH PFS Disclaimer: The information contained in this section may have been updated after the patient was seen, as this information can be updated by other users. Medical History (Updated 02/12/22 @ 01:11 by Alberto Peters MD) Diabetes mellitus, type 2 Former heavy tobacco smoker [facility]
[2022-02-11 23:05] LABS: Erythrocyte Sedimentation Rate 6 mm/hr (0-20)
--- NOTE | 2022-02-11 23:27 | PC.NURSE ---
Dr. Peters at
[2022-02-11 23:36] VITALS: BP 126/82; PULSE 113; O2SAT 96
[2022-02-12] VITALS: BP 134/87; PULSE 113; O2SAT 96
--- NOTE | 2022-02-12 00:01 | PC.NURSE ---
Second trop sent to lab
[2022-02-12 00:26] LABS: Troponin I < 0.01 ng/ml (0.00-0.034)
[2022-02-12 01:18] VITALS: BP 133/82; PULSE 101; PULSE 118; RESP 20; TEMP 36.8; O2SAT 98
== END 2022-02-12 01:30 | disposition home or self-care (01) ==
PROVIDERS: Emergency Provider Emergency Medicine; PCP Nurse Practitioner Family
DX: R07.9 Chest pain, unspecified (principal); M54.9 Dorsalgia, unspecified; R19.7 Diarrhea, unspecified; Z20.822 Contact with and (suspected) exposure to COVID-19; I10 Essential (primary) hypertension; K21.9 Gastro-esophageal reflux disease without esophagitis; E11.9 Type 2 diabetes mellitus without complications; E66.9 Obesity, unspecified; Z79.51 Long term (current) use of inhaled steroids; Z79.52 Long term (current) use of systemic steroids; Z79.899 Other long term (current) drug therapy; Z88.5 Allergy status to narcotic agent; Z68.42 Body mass index [BMI] 45.0-49.9, adult; Z87.891 Personal history of nicotine dependence; Z82.49 Family history of ischemic heart disease and other diseases of the circulatory system; Z83.3 Family history of diabetes mellitus
CPT/HCPCS: 71046; 71275; 80048; 80076; 83036; 83880; 84484; 85007; 85025; 85651; 86140; 93005; 96361; 96374; 96375; 99285; C9803; Q9967; U0003; U0005

== ENCOUNTER → 2022-05-12 12:59 | Outpatient (CLI) | payer BC, OTHER, SELFPAY ==
--- NOTE | 2022-05-12 13:00 | MR_ITS ---
FINAL REPORT TECHNIQUE: Multiplanar and multisequence imaging the right knee was obtained without contrast. CLINICAL HISTORY: knee pain right knee pain , grinding,pops pain when on feet all day FINDINGS: Bones: There is no acute fracture or marrow edema. There is mild degenerative disease with osteophyte formation and tricompartmental chondromalacia. There are no full thickness cartilage defects. Menisci: No meniscal tear is present. Ligaments: No cruciate or collateral ligament tear is present. Tendons/Muscles: The quadriceps and patellar tendons are within normal limits. The biceps femoris tendon and iliotibial tract are intact. The popliteus tendon is normal. Other: There is a small joint effusion. Remaining soft tissues are normal. IMPRESSION: Mild degenerative disease and chondromalacia. Reviewed, Interpreted and Dictated by Destiny Tong MD Transcribed by Leny Rachel Authenticated and [facility]
== END ==
PROVIDERS: PCP Nurse Practitioner Family; Visit Provider Orthopaedic Surgery
DX: M25.561 Pain in right knee (principal)
CPT/HCPCS: 73721

== ENCOUNTER → 2022-05-18 12:25 | Outpatient (CLI) | payer BC, OTHER, SELFPAY ==
[2022-05-18 14:53] LABS: Chloride 101 mmol/L (98-107); Potassium 4.4 mmoL/L (3.5-5.1); Sodium 133 mmol/L (136-145)
[2022-05-18 14:56] LABS: Alanine Aminotransferase 42 U/L (12-78); Albumin Level 4.4 g/dl (3.5-5.0); Albumin/Globulin Ratio 1.6 (1.1-1.8); Alkaline Phosphatase 102 U/L (38-126); Anion Gap 15.4 mEq/L (5-15); Aspartate Amino Transferase 44 U/L (14-36); Bilirubin,Total 0.6 mg/dl (0.2-1.3); Blood Urea Nitrogen 10 mg/dl (7-17); Carbon Dioxide 21 mmol/L (22.0-30.0); Cholesterol 299 mg/dl (140-200); Estimated Glomerular Filt Rate 177 ml/min (>60); GFR (African American) 214 ML/MIN (>60); Globulin 2.7 g/dL (1.3-3.2); Total Protein,Serum 7.1 g/dl (6.3-8.2); Triglycerides 256 mg/dl (30-150); VLDL Cholesterol 51 mg/dL (0-40)
[2022-05-18 14:57] LABS: Calcium 9.3 mg/dl (8.4-10.2); Glucose 240 mg/dl (74-100); Hemoglobin A1C 11.5 % (4.0-6.0)
[2022-05-18 15:14] LABS: 25-OH Vitamin D, Total 14.2 ng/mL (30-100)
[2022-05-18 15:19] LABS: Chol/HDL Ratio 5.9 (1-3.5); HDL Cholesterol 51 mg/dl (40-60)
== END ==
PROVIDERS: PCP Nurse Practitioner Family; Visit Provider Nurse Practitioner Family
DX: E78.2 Mixed hyperlipidemia (principal); E55.9 Vitamin D deficiency, unspecified; N76.0 Acute vaginitis; E11.9 Type 2 diabetes mellitus without complications; Z79.84 Long term (current) use of oral hypoglycemic drugs
CPT/HCPCS: 36415; 80053; 80061; 82306; 83036

== ENCOUNTER 2022-06-21 15:30 | Emergency (ER) | payer BC, OTHER, SELFPAY ==
[2022-06-21] VITALS (8 sets, daily range): BP systolic 107–151; BP diastolic 64–96; PULSE 78–108; RESP 16–20; TEMP 36.5–37.2; O2SAT 96–98; BMI 44.2
--- NOTE | 2022-06-21 15:41 | ECG_ITS ---
APPROVED REPORT Exam: Resting ECG HR:102 bpm ECG Measurements Heart Rate 102 AXES AK 161 P 50 QRSd 112 QRS 41 QT 354 T 29 QTc 412 Conclusion SINUS TACHYCARDIA POSSIBLE LEFT ATRIAL ENLARGEMENT [-0.1mV P-WAVE IN V1/V2] MODERATE INTRAVENTRICULAR CONDUCTION DELAY [110+ ms QRS DURATION] ABNORMAL RHYTHM ECG UNCONFIRMED REPORT Electronically signed by : Oscar Huerta MD 06/23/2022 09:34:44
[2022-06-21 16:15] LABS: Basophils # 0.1 K/mm3 (0-0.2); Basophils % 0.7 % (0.1-2.0); Eosinophils # 0.3 K/mm3 (0.0-0.4); Eosinophils % 2.7 % (0.1-12.0); Hematocrit 51.7 % (37.0-47.0); Hemoglobin 16.7 g/dL (12.2-16.2); Lymphocytes # 2.8 K/mm3 (0.7-4.5); Lymphocytes % 29.8 % (10-50); Mean Corpuscular HGB Conc 32.2 g/dL (31.8-35.4); Mean Corpuscular Hemoglobin 29.3 pg (27.0-31.2); Mean Corpuscular Volume 90.8 fl (81-99); Mean Platelet Volume 7.7 fl (7.4-10.4); Monocytes # 0.5 K/mm3 (0.1-1.0); Monocytes % 5.3 % (1.7-9.3); Neutrophils # 5.9 K/mm3 (1.8-7.8); Neutrophils % 61.6 % (37.0-80.0); Platelet Count 444 K/mm3 (142-424); Red Blood Count 5.69 M/mm3 (4.20-5.40); White Blood Count 9.5 K/mm3 (4.8-10.8)
[2022-06-21 16:31] LABS: Chloride 107 mmol/L (98-107); Potassium 4.6 mmoL/L (3.5-5.1); Sodium 137 mmol/L (136-145)
[2022-06-21 16:33] LABS: Alanine Aminotransferase 53 U/L (12-78); Alkaline Phosphatase 78 U/L (38-126); Anion Gap 15.6 mEq/L (5-15); Aspartate Amino Transferase 53 U/L (14-36); Bilirubin,Total 0.8 mg/dl (0.2-1.3); Blood Urea Nitrogen 10 mg/dl (7-17); Carbon Dioxide 19 mmol/L (22.0-30.0); Creatinine Clearance Estimated 135 mL/min (50-200); Estimated Glomerular Filt Rate 137 ml/min (>60); GFR (African American) 165 ML/MIN (>60)
[2022-06-21 16:34] LABS: Albumin Level 4.3 g/dl (3.5-5.0); Albumin/Globulin Ratio 1.5 (1.1-1.8); Calcium 9.4 mg/dl (8.4-10.2); Globulin 2.9 g/dL (1.3-3.2); Glucose 191 mg/dl (74-100); Total Protein,Serum 7.2 g/dl (6.3-8.2)
[2022-06-21 17:33] LABS: Troponin I < 0.01 ng/ml (0.00-0.034)
--- NOTE | 2022-06-21 18:47 | XR_ITS ---
PROCEDURE INFORMATION: Exam: XR Chest Exam date and time: 06/21/2022 7:59 PM Age: 41 years old Clinical indication: Shortness of breath; Additional info: SOA TECHNIQUE: Imaging protocol: Radiologic exam of the chest. Views: 1 view. COMPARISON: CR XR CHEST 2V 02/11/2022 10:08 PM FINDINGS: Lungs: No consolidation. Pleural spaces: No pneumothorax. Heart/Mediastinum: No cardiomegaly. Bones/joints: No acute abnormality. IMPRESSION: No acute findings.
--- NOTE | 2022-06-21 18:47 | HMH.EDGENADL ---
Discharge Plan Disposition Patient Disposition: Home, Self-Care Chief Complaint: Neuro Symptoms/Deficit Prescriptions Prescriptions: No Action colestipol 1 gram tablet PO Referrals Follow up/Referrals: Casandra Oates APRN [Primary Care Provider] - See instructions Activity Restrictions/Add. Instructions Additional Instructions/Restrictions: At this time was felt you are safe to be discharged home. If new or worsening symptoms please do not hesitate to return the emergency department. Should your symptoms persist please follow-up with your family doctor for continued evaluation within 1 week. Clinical Impressions Clinical Impression: Chest pain Discharge ED Provider: Francisco J Lucio General Adult HPI General Chief complaint: Neuro Symptoms/Deficit Stated complaint: SOB,Numbness in L Hand, Ribs Pain Time Seen by Provider: 06/21/22 18:30 Mode of Arrival: Ambulatory Limitations: No Limitations Description of Symptoms (Recalled from ER Triage Doc. by RN): pt to ED with recent left arm numbness x 1 week and intermitten middle back pain that at times radiates to her middle chest. pt reports her medications were recently changed last week as well. pt denies any recent illness. History of Present Illness HPI narrative: Patient is a 41-year-old female with past medical history of high blood pressure and GERD who presents emergency department for evaluation of chest pain and shortness of breath. Onset was acute, over the last week after she has started a new medication. Chest pain is substernal, nonmodifiable, moderate in intensity, there is associated shortness of breath. Given this she presents here for continued evaluation. No other acute complaints at this time. Related Data Home Medications Medication Instructions Recorded Confirmed colestipol 1 gram tablet tab PO 05/18/22 05/18/22 Allergies Allergy/AdvReac Type Severity Reaction Status Date / Time codeine [CODEINE] Allergy Severe S-DIFF. Verified 05/18/22 11:43 BREATHING [facility] Disclaimer: The information contained in this section may have been updated after the patient was seen, as this information can be updated by other users. Medical History Diabetes mellitus, type 2 Former heavy tobacco smoker Gastroesophageal reflux disease Hypertension Obesity Restless sleeper Snoring Surgical History History of cholecystectomy History of colonoscopy History of hysterectomy Social History Smoking Status: Never smoker alcohol intake: never substance use type: denies use current occupational status: employed Travel in the last 8 weeks: None housing: house current occupation: [employer] caffeine: Yes ROS Obtained: Yes Systems reviewed as appropriate & no additional complaints except as documented Physical Exam General General appearance: alert and in no apparent distress Head Head exam: atraumatic and normocephalic Eye Eye exam: Present PERRL and EOMI ENT ENT exam: Present mucous membranes moist Neck Neck exam: Present normal inspection Chest Chest inspection: Present normal inspection and symmetric chest wall rise Respiratory Respiratory exam: Present normal lung sounds bilaterally; Absent respiratory distress Cardiovascular Cardiovascular exam: Present normal rhythm and tachycardia Abdominal Exam Abdominal exam: Present soft; Absent tenderness Extremities Exam Extremities exam: Present normal inspection Neurological Exam Neurological exam: Present alert and oriented X3 Psychiatric Psychiatric exam: Present normal affect Skin Skin exam: Present warm and dry Medical Decision Making Ever Inquiry Pt receiving controlled substance: No Vital Signs: 06/21/22 15:31 06/21/22 16:00 06/21/22 16:30 Temperature 97.7 F Temperature Sourc
[2022-06-21 19:03] LABS: HCG Qualitative, Serum Negative (Negative)
--- NOTE | 2022-06-21 19:15 | PC.NURSE ---
PT HAS LARGE HEMATOMA TO R FOREARM , MIRNA WRAP APPLIED
[2022-06-21 19:19] LABS: D-Dimer 0.76 ug/mL (0.0-0.5)
[2022-06-21 20:54] LABS: Troponin I < 0.01 ng/ml (0.00-0.034)
== END 2022-06-21 21:08 | disposition home or self-care (01) ==
PROVIDERS: Emergency Provider Emergency Medicine; PCP Nurse Practitioner Family
DX: R07.9 Chest pain, unspecified (principal); R06.02 Shortness of breath
CPT/HCPCS: 36415; 71045; 80053; 84484; 84703; 85025; 85378; 93005; 96360; 99285

== ENCOUNTER 2022-07-04 17:55 | Emergency (ER) | payer BC, OTHER, SELFPAY ==
--- NOTE | 2022-07-04 17:59 | XR_ITS ---
PROCEDURE INFORMATION: Exam: XR Abdomen Exam date and time: 07/04/2022 6:08 PM Age: 41 years old Clinical indication: Abdominal pain; Prior surgery; Surgery type: Cholecystectomy; Patient HX: PT hasn't had a bowel movement in 1 wk; Additional info: Constipation x's a week TECHNIQUE: Imaging protocol: Radiologic exam of the abdomen. Views: Frontal supine view of the abdomen. 1 View. COMPARISON: ABDPELWO CT abdomen pelvis wo con 10/03/2017 7:43 PM FINDINGS: Gastrointestinal tract: Normal. No bowel dilation. Organs: Cholecystectomy clips are noted. Bones/joints: Unremarkable. IMPRESSION: No acute abnormality
[2022-07-04 19:07] VITALS: BP 159/96; PULSE 89; RESP 19; TEMP 36.8; O2SAT 98; BMI 41.6
--- NOTE | 2022-07-04 19:20 | EXP.UTC ---
Discharge Plan Disposition Patient Disposition: Home, Self-Care Condition: Good Prescriptions Prescriptions: No Action colestipol 1 gram tablet PO Referrals Follow up/Referrals: Casandra Oates APRN [Primary Care Provider] - See instructions Activity Restrictions/Add. Instructions Additional Instructions/Restrictions: Make sure that you are drinking plenty of fluids Fleets glycerin suppository may help Follow up with your Family Doctor if symptoms continue Return if needed Clinical Impressions Clinical Impression: Fecal impaction Instructions Patient Instructions: Constipation, DI for Constipation, DI for Fecal Impaction Discharge ED Provider: Ruma Rajan [facility] [place] HPI General Stated complaint: constipation for 1WK Mode of Arrival: Ambulatory Source of Information: Patient Limitations: No Limitations Time Seen by Provider: 07/04/22 19:21 Description of Symptoms (Recalled from Triage Doc. by RN): pt c/o constipation. pt states she has not had a BM since 06/26 HEENT Symptoms (Recalled from RN notes): No Resp Symptoms (Recalled from RN notes): No Skin Symptoms (Recalled from RN notes): No MS Symptoms (Recalled from RN notes): No Functional Status (Recalled from RN notes): wnl History of Present Illness Provider Complaint: Patient states she has been constipated for about a week States that now she feels like she has some stool that feels like it is ready to come out but she hasnt been able to get it out States that she hasnt tried a enema or tried glycerin suppository Related Data Home Medications Medication Instructions Recorded Confirmed colestipol 1 gram tablet tab PO 05/18/22 05/18/22 Allergies Allergy/AdvReac Type Severity Reaction Status Date / Time codeine [CODEINE] Allergy Severe S-DIFF. Verified 05/18/22 11:43 BREATHING Worker's Comp Is this a Worker's Comp case?: No [facility] Disclaimer: The information contained in this section may have been updated after the patient was seen, as this information can be updated by other users. 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 caffeine: Yes ROS Obtained: Yes All systems reviewed & no additional complaints except as documented and Yes Systems reviewed as appropriate & no additional complaints except as documented Constitutional Constitutional: Reports system reviewed and no additional complaints, except as documented and Reports as per HPI ENT Ears, Nose, Mouth, and Throat: Reports system reviewed and no additional complaints, except as documented and Reports as per HPI Cardiovascular Cardiovascular: Reports system reviewed and no additional complaints, except as documented and Reports as per HPI Respiratory Respiratory: Reports system reviewed and no additional complaints, except as documented and Reports as per HPI Gastrointestinal Gastrointestingal: Reports system reviewed and no additional complaints, except as documented, as per HPI and constipation Physical Exam General General appearance: alert and in no apparent distress Respiratory Respiratory exam: Present normal lung sounds bilaterally; Absent respiratory distress or wheezes Cardiovascular Cardiovascular exam: Present regular rate, normal rhythm and normal heart sounds Abdominal Exam Abdominal exam: Present soft and normal bowel sounds; Absent distention or tenderness Rectal
--- NOTE | 2022-07-04 19:51 | PC.NURSE ---
bedside with provider to perform digital exam. stool located close to anus. stool started moving with exam. pt had a LG BM
[2022-07-04 20:05] VITALS: BP 0/0; PULSE 0; RESP 0; TEMP -17.7; TEMP 0
== END 2022-07-04 20:07 | disposition home or self-care (01) ==
PROVIDERS: Emergency Provider Nurse Practitioner; PCP Nurse Practitioner Family
DX: K56.41 Fecal impaction (principal); E11.9 Type 2 diabetes mellitus without complications; K21.9 Gastro-esophageal reflux disease without esophagitis; I10 Essential (primary) hypertension; E66.9 Obesity, unspecified; Z87.891 Personal history of nicotine dependence
CPT/HCPCS: 74018; 99212; 99214; G0463

== ENCOUNTER 2023-02-19 17:57 | Emergency (ER) | payer BC, OTHER, SELFPAY ==
[2023-02-19 18:30] VITALS: BP 142/95; PULSE 102; RESP 18; TEMP 37.3; O2SAT 95; BMI 47.0
--- NOTE | 2023-02-19 18:32 | EXP.UTC ---
Discharge Plan Disposition Patient Disposition: Home, Self-Care Condition: Good Prescriptions Prescriptions: New azithromycin [Zithromax] 250 mg tablet 250 mg PO UD DOSE PK Qty: 6 0RF Rx Instructions: Take two (2) tablets today, then one (1) tablet days #2 thru #5 benzonatate [benzonatate] 100 mg capsule 100 mg PO TIDP PRN (Reason: Cough) Qty: 30 0RF methylprednisolone 4 mg Tablets,Dose Pack 4 mg PO DIRECTED Qty: 21 0RF No Action colestipol 1 gram tablet PO losartan 50 mg tablet 50 mg PO DAILY Patient Comments: TAKE ONE TABLET BY MOUTH EVERY DAY pantoprazole 40 mg tablet,delayed release (DR/EC) 40 mg PO DAILY Patient Comments: TAKE ONE TABLET BY MOUTH EVERY DAY Tradjenta 5 mg tablet 5 mg PO DAILY Patient Comments: TAKE ONE TABLET BY MOUTH EVERY DAY Referrals Follow up/Referrals: Casandra Oates APRN [Primary Care Provider] - See instructions Activity Restrictions/Add. Instructions Additional Instructions/Restrictions: Drink plenty of fluids. Take tylenol or ibuprofen for pain or fever. Take the medications as directed. Follow up with your regular doctor. GO TO THE ER FOR ANY WORSENING SYMPTOMS Clinical Impressions Clinical Impression: Bronchitis, Acute viral syndrome Stand Alone Forms Stand Alone Forms: Work/School Release Instructions Patient Instructions: DI for Acute Bronchitis, DI for Viral Syndrome Discharge ED Provider: Fausto Velasco [facility] General Stated complaint: cough, lethargy, st carroll body ache Time Seen by Provider: 02/19/23 18:32 History of Present Illness Provider Complaint: She states that for the past 2 days she has had a productive cough, sore throat, and body aches. Related Data Home Medications Medication Instructions Recorded Confirmed colestipol 1 gram tablet tab PO 05/18/22 05/18/22 linagliptin 5 mg tablet (Tradjenta) 5 mg PO DAILY 02/19/23 02/19/23 losartan 50 mg tablet 50 mg PO DAILY 02/19/23 02/19/23 pantoprazole 40 mg tablet,delayed 40 mg PO DAILY 02/19/23 02/19/23 release Previous Rx's Medication Instructions Recorded azithromycin 250 mg tablet 250 mg PO UD DOSE PK #6 tabs 02/19/23 (Zithromax) benzonatate 100 mg capsule 100 mg PO TIDP PRN Cough #30 caps 02/19/23 methylprednisolone 4 mg tablets in 4 mg PO DIRECTED #21 tabs 02/19/23 a dose pack Allergies Allergy/AdvReac Type Severity Reaction Status Date / Time codeine [CODEINE] Allergy Severe S-DIFF. Verified 02/19/23 19:07 BREATHING PFSH COUNTS INCLUDE 234 BEDS AT THE [facility] Disclaimer: The information contained in this section may have been updated after the patient was seen, as this information can be updated by other users. 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
[2023-02-19 19:09] LABS: UTC Influenza A Antigen Negative (Negative); UTC Influenza B Antigen Negative (Negative); UTC Strep Screen (Rapid) Negative (Negative)
[2023-02-19 19:32] VITALS: BP 142/95; PULSE 102; RESP 18; TEMP 37.3; O2SAT 95
== END 2023-02-19 19:32 | disposition home or self-care (01) ==
PROVIDERS: Emergency Provider Nurse Practitioner Family; PCP Nurse Practitioner Family
DX: J20.9 Acute bronchitis, unspecified (principal); R50.9 Fever, unspecified; R51.9 Headache, unspecified; R07.0 Pain in throat; R05.8 Other specified cough; R53.83 Other fatigue; M79.18 Myalgia, other site; E11.9 Type 2 diabetes mellitus without complications; I10 Essential (primary) hypertension; K21.9 Gastro-esophageal reflux disease without esophagitis; Z79.84 Long term (current) use of oral hypoglycemic drugs; Z87.891 Personal history of nicotine dependence
CPT/HCPCS: 87635; 87804; 87880; 99212; 99214; G0463

== ENCOUNTER 2023-04-28 13:38 | Outpatient (CLI) | payer BC, OTHER, SELFPAY ==
--- NOTE | 2023-04-28 | XR_ITS ---
PROCEDURE INFORMATION: Exam: XR Cervical Spine Exam date and time: 04/28/2023 2:07 PM Age: 42 years old Clinical indication: Neck pain; Additional info: Neck pain that radiates down spine. Tingling in left arm/hand. TECHNIQUE: Imaging protocol: Radiologic exam of the cervical spine. Views: 4 or 5 views. COMPARISON: CR XR CERVICAL SPINE 3V 02/01/2020 4:35 PM FINDINGS: Bones/joints: Normal alignment. No acute fracture. No significant disc space narrowing. Foraminal narrowing at multiple levels of the upper cervical spine bilaterally. Soft tissues: Unremarkable. IMPRESSION: Foraminal narrowing at multiple levels of the upper cervical spine bilaterally.
[2023-04-28 14:17] LABS: Basophils # 0.1 K/mm3 (0-0.2); Basophils % 0.7 % (0.1-2.0); Eosinophils # 0.1 K/mm3 (0.0-0.4); Eosinophils % 1.7 % (0.1-12.0); Hematocrit 50.1 % (37.0-47.0); Hemoglobin 17.1 g/dL (12.2-16.2); Lymphocytes # 3.6 K/mm3 (0.7-4.5); Lymphocytes % 42.6 % (10-50); Mean Corpuscular HGB Conc 34.2 g/dL (31.8-35.4); Mean Corpuscular Hemoglobin 30.8 pg (27.0-31.2); Mean Corpuscular Volume 90.1 fl (81-99); Mean Platelet Volume 7.8 fl (7.4-10.4); Monocytes # 0.4 K/mm3 (0.1-1.0); Monocytes % 4.8 % (1.7-9.3); Neutrophils # 4.2 K/mm3 (1.8-7.8); Neutrophils % 50.2 % (37.0-80.0); Platelet Count 399 K/mm3 (142-424); Red Blood Count 5.57 M/mm3 (4.20-5.40); Red Cell Distribution Width 13.1 % (11.5-17.5); White Blood Count 8.4 K/mm3 (4.8-10.8)
[2023-04-28 14:39] LABS: Chloride 104 mmol/L (98-107); Potassium 4.3 mmoL/L (3.5-5.1); Sodium 136 mmol/L (136-145)
[2023-04-28 14:42] LABS: Alanine Aminotransferase 50 U/L (12-78); Albumin Level 4.4 g/dl (3.5-5.0); Albumin/Globulin Ratio 1.5 (1.1-1.8); Alkaline Phosphatase 105 U/L (38-126); Anion Gap 11.3 mEq/L (5-15); Aspartate Amino Transferase 49 U/L (14-36); Bilirubin,Total 0.7 mg/dl (0.2-1.3); Blood Urea Nitrogen 11 mg/dl (7-17); Carbon Dioxide 25 mmol/L (22.0-30.0); Cholesterol 304 mg/dl (140-200); Estimated Glomerular Filt Rate 176 ml/min (>60); GFR (African American) 213 ML/MIN (>60); Globulin 2.9 g/dL (1.3-3.2); Total Protein,Serum 7.3 g/dl (6.3-8.2); Triglycerides 256 mg/dl (30-150); VLDL Cholesterol 51 mg/dL (0-40)
[2023-04-28 14:43] LABS: Calcium 9.8 mg/dl (8.4-10.2); Chol/HDL Ratio 6.6 (1-3.5); Glucose 258 mg/dl (74-100); HDL Cholesterol 46 mg/dl (40-60)
[2023-04-28 14:49] LABS: 25-OH Vitamin D, Total 19.6 ng/mL (30-100)
[2023-04-28 14:53] LABS: Direct LDL Cholesterol 180.45 mg/dL (100-129)
[2023-04-28 15:02] LABS: Hemoglobin A1C 11.6 % (4.0-6.0)
[2023-04-28 15:13] LABS: Thyroid Stimulating Hormone 1.13 uIU/mL (0.465-4.68)
[2023-04-28 16:37] LABS: Vitamin B12 532 pg/mL (239-931)
[2023-04-30 13:34] LABS: Prolactin 4.6 ng/mL (4.8-33.4)
== END 2023-04-28 23:59 ==
LOC: LAB 13:39
PROVIDERS: PCP Nurse Practitioner Family; Visit Provider Nurse Practitioner Family
DX: M54.2 Cervicalgia (principal); N64.4 Mastodynia; I10 Essential (primary) hypertension; E11.9 Type 2 diabetes mellitus without complications; E55.9 Vitamin D deficiency, unspecified; R20.2 Paresthesia of skin
CPT/HCPCS: 36415; 72050; 80053; 80061; 82306; 82607; 82746; 83036; 84146; 84443; 85025

== ENCOUNTER 2023-05-27 14:41 | Emergency (ER) | payer BC, OTHER, SELFPAY ==
[2023-05-27] VITALS (9 sets, daily range): BP systolic 124–149; BP diastolic 84–105; PULSE 94–105; RESP 16–20; TEMP 36.6–36.7; O2SAT 94–96; BMI 47.5
--- NOTE | 2023-05-27 15:17 | CT_ITS ---
PROCEDURE INFORMATION: Exam: CT Abdomen And Pelvis With Contrast Exam date and time: 05/27/2023 3:45 PM Age: 42 years old Clinical indication: Abdominal pain; Localized; Right lower quadrant (rlq); Additional info: Rlq abd pain TECHNIQUE: Imaging protocol: Computed tomography of the abdomen and pelvis with contrast. Radiation optimization: All CT scans at this facility use at least one of these dose optimization techniques: automated exposure control; mA and/or kV adjustment per patient size (includes targeted exams where dose is matched to clinical indication); or iterative reconstruction. Contrast material: ISOVUE; Contrast volume: 75 ml; Contrast route: IV; COMPARISON: ABDPELWO CT abdomen pelvis wo con 10/03/2017 7:43 PM FINDINGS: Liver: Markedly fatty liver. Hepatomegaly, measuring 22.5 Gallbladder and bile ducts: Status post cholecystectomy. Pancreas: Unremarkable. Spleen: No splenomegaly. Adrenal glands: Unremarkable. Kidneys and ureters: No renal or ureteral stones. No hydronephrosis. Stomach and bowel: No evidence of bowel obstruction or acute inflammatory changes in the gastrointestinal tract. Appendix: Appendix is visualized and is normal. Intraperitoneal space: No free fluid. No pneumoperitoneum. Vasculature: Unremarkable. Lymph nodes: Unremarkable. Urinary bladder: Unremarkable. Reproductive: Status post hysterectomy. Bones/joints: No evidence of acute osseous abnormality. Soft tissues: Unremarkable. Other findings: cm in craniocaudal axis. IMPRESSION: 1. No acute findings in the abdomen or pelvis. 2. Markedly fatty liver and hepatomegaly. Consider non-emergent referral to Hepatology.
--- NOTE | 2023-05-27 15:19 | HMH.EDGENADL ---
Discharge Plan Disposition Patient Disposition: Home, Self-Care Prescriptions Prescriptions: New ondansetron 4 mg tablet,disintegrating 4 mg PO Q6H PRN (Reason: nausea and vomiting) 5 Days Qty: 20 0RF No Action colestipol 1 gram tablet PO losartan 50 mg tablet 50 mg PO DAILY Patient Comments: TAKE ONE TABLET BY MOUTH EVERY DAY pantoprazole 40 mg tablet,delayed release (DR/EC) 40 mg PO DAILY Patient Comments: TAKE ONE TABLET BY MOUTH EVERY DAY Tradjenta 5 mg tablet 5 mg PO DAILY Patient Comments: TAKE ONE TABLET BY MOUTH EVERY DAY azithromycin [Zithromax] 250 mg tablet 250 mg PO UD DOSE PK Qty: 6 0RF Rx Instructions: Take two (2) tablets today, then one (1) tablet days #2 thru #5 benzonatate [benzonatate] 100 mg capsule 100 mg PO TIDP PRN (Reason: Cough) Qty: 30 0RF methylprednisolone 4 mg Tablets,Dose Pack 4 mg PO DIRECTED Qty: 21 0RF Referrals Follow up/Referrals: Provider,Referral, MD [Primary Care Provider] - See instructions Activity Restrictions/Add. Instructions Additional Instructions/Restrictions: No emergent medical cause of your symptoms was identified today. Incidentally on the CT scan there was significant fatty liver infiltration and he did have some abnormal liver function test. I recommend that you follow-up both with an production material handler and a equipment operator warehouse. As discussed there is a new FDA approved medication for the first time for fatty liver disease. It is important that you follow-up and discuss with the specialist as well as your primary care doctor. I also advised that you lose weight. Your symptoms today are most likely secondary to a virus symptomatic medications have been prescribed please return to the emergency department with any worsening of your symptoms. Clinical Impressions Clinical Impression: Nausea vomiting and diarrhea, Abdominal pain, diffuse, Fatty infiltration of liver, Morbid obesity with BMI of 45.0-49.9, adult, Hyperglycemia Instructions Patient Instructions: DI for Acute Abdominal Pain Discharge ED Provider: Edmundo Ball General Adult HPI General Chief complaint: Abdominal Pain Stated complaint: vomiting, abd pain Time Seen by Provider: 05/27/23 15:03 Mode of Arrival: Ambulatory Source of Information: Patient Limitations: No Limitations Description of Symptoms (Recalled from ER Triage Doc. by RN): pt c/o N/V/D and abd cramping that began this am. pt states the cramping is throughout her abd and a 10/10 but is worse in waves. pt states her belching and emesis tastes like, rotten eggs. pt has a hx of hysterectomy and tiana. History of Present Illness HPI narrative: Patient is a 42-year-old female presenting today with nausea vomiting diarrhea and significant abdominal pain. States the abdominal pain is been intermittent and diffuse but primarily localized to the right lower quadrant. She has a history of cholecystectomy but has not had an appendectomy. Denies any blood in her stool in her vomit. No urinary symptoms no frequency urgency dysuria etc. No history of kidney stones. No positive sick contacts that she is aware of. Related Data Home Medications Medication Instructions Recorded Confirmed colestipol 1 gram tablet tab PO 05/18/22 05/18/22 linagliptin 5 mg tablet (Tradjenta) 5 mg PO DAILY 02/19/23 02/19/23 losartan 50 mg tablet 50 mg PO DAILY 02/19/23 02/19/23 pantoprazole 40 mg tablet,delayed 40 mg PO DAILY 02/19/23 02/19/23 release Previous Rx's Medication Instructions Recorded azithromycin 250 mg tablet 250 mg PO UD DOSE PK #6 tabs 02/19/23 (Zithromax) benzonatate 100 mg capsule 100 mg PO TIDP PRN Cough #30 caps 02/19/23 methylprednisolone 4 mg tablets in 4 mg PO DIRECTED #21 tabs 02/19/23 a dose pack ondansetron 4 mg disintegrating 4 mg PO Q6H PRN nausea and 05/27/23 tablet vomiting 5 days #20 tabs Allergies Allergy/AdvReac Type Severity Reaction Status Date / Time codeine [CODEINE] Allergy Severe S-DIFF. Verified 05/27/23 15:06 BREATHING [facility] Disclaimer: The information contained in this section may have been updated after the patient was seen, as this information can be updated by other users. 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 ROS Obtained: Yes All systems reviewed & no additional complaints except as documented Physical Exam General General appearance: alert Respiratory Respiratory exam: Present normal lung sounds bilaterally Cardiovascular Cardiovascular exam: Present regular rate and normal rhythm Abdominal Exam Abdominal exam: Present soft, tenderness, guarding, rebound and other (Patient has diffuse abdominal tenderness with some rebound and guarding throughout primarily localized in the right lower quadrant maximal point of tenderness) Neurological Exam Neurological exam: Present alert and oriented X3 Medical Decision Making Ever Inquiry Pt receiving controlled substance: No Vital Signs: 05/27/23 14:59 05/27/23 15:00 05/27/23 15:30 Temperature 97.9 F Temperature Source Oral Pulse Rate 105 H 104 H Pulse Rate [Right] 102 H Respiratory Rate 18 20 20 Blood Pressure 125/87 128/88 Blood Pressure [Right Arm] 149/105 H Blood Pressure Mean 96 100 Blood Pressure Mean [Right Arm] 119 Blood Pressure Source [Right Arm] Automatic Cuff Blood Pressure Position [Right Arm] Sitting 02 Sat by Pulse Oximetry 96 96 95 Oxygen Delivery Method Room Air 05/27/23 16:00 05/27/23 16:30 05/27/23 17:00 Temperature Temperature Source Pulse Rate 94 H 97 H 95 H Pulse Rate [Right] Respiratory Rate 20 Blood Pressure 139/91 H 132/86 145/94 H Blood Pressure [Right Arm] Blood Pressure Mean 99 Blood Pressure Mean [Right Arm] Blood Pressure Source [Right Arm] Blood Pressure Position [Right Arm] 02 Sat by Pulse Oximetry 96 94 L 96 Oxygen Delivery Method Room Air Room Air 05/27/23 17:30 05/27/23 18:00 Temperature Temperature Source Pulse Rate 97 H 101 H Pulse Rate [Right] Respiratory Rate Blood Pressure 124/84 129/84 Blood Pressure [Right Arm] Blood Pressure Mean Blood Pressure Mean [Right Arm] Blood Pressure Source [Right Arm] Blood Pressure Position [Right Arm] 02 Sat by Pulse Oximetry 94 L 95 Oxygen Delivery Method Lab Data Lab results reviewed: Yes I reviewed the patient's lab results. Lab Results 05/27/23 14:56: WBC 15.5 H, RBC 5.75 H, Hgb 17.6 H, Hct 53.2 H, MCV 92.5, MCH 30.7, MCHC 33.2, RDW 13.1, Plt Count 438 H, MPV 8.1, Neut % (Auto) 79.6, Lymph % (Auto) 14.9, [place] % (Auto) 4.2, Eos % (Auto) 0.4, Baso % (Auto) 0.7, Neut # (Auto) 12.3 H, Lymph # (Auto) 2.3, [place] # (Auto) 0.7, Eos # (Auto) 0.1, Baso # (Auto) 0.1, Total Counted 100, Neutrophils % (Manual) 86 H, Lymphocytes % (Manual) 12, Monocytes % (Manual) 2, Platelet Estimate Normal, RBC Morphology Normal, Sodium 135 L, Potassium 4.2, Chloride 106, Carbon Dioxide 18 L, Anion Gap 15.2 H, BUN 14, Creatinine 0.50 L, Estimated Creat Clear 117, Estimated GFR 136, Est GFR ( Amer) 165, Glucose 278 H, Calcium 9.5, Total Bilirubin 0.9, AST 45 H, ALT 48, Alkaline Phosphatase 121, Total Protein 7.5, Albumin 4.4, Globulin 3.1, Albumin/Globulin Ratio 1.4, Lipase 128, Serum HCG, Qual Negative 05/27/23 14:56 05/27/23 14:56 Orders (Tests/Meds): ED MEDICATIONS Generic Name Dose Route Start Last Admin Trade Name Freq PRN Reason Stop Dose Admin Sodium Chloride 10 ml 05/27/23 15:46 05/27/23 15:47 Sodium Chloride 0.9% 10ml Syr (Rad Only) IV 06/26/23 15:45 10 ml NEEDED PRN Administration Maintain IV Site Discontinued Medications Generic Name Dose Route Start Last Admin Trade Name Freq PRN Reason Stop Dose Admin Lactated Ringer's 1,000 mls @ 999 mls/hr 05/27/23 15:30 05/27/23 15:29 Lactated Ringer's 1000 Ml Bag IV 05/27/23 16:30 999 mls/hr .Q1H1M MIKAELA Administration Iopamidol 75 ml 05/27/23 15:46 05/27/23 15:47 Iopamidol-370 (76%);100ml Bottle IV 05/27/23 15:47 75 ml ONCE ONE Administration Morphine Sulfate 4 mg 05/27/23 15:17 05/27/23 15:28 Morphine 4mg/Ml Syringe IV 05/27/23 15:18 4 mg ONCE ONE Administration Ondansetron HCl 4 mg 05/27/23 15:17 05/27/23 15:29 Ondansetron 4mg/2ml Vial IV 05/27/23 15:18 4 mg ONCE ONE Administration ORDERS Category Date Time Status CT abdomen pelvis w con Stat Cat Scan 05/27/23 15:17 Completed CBC w/Auto Diff [Complete Blood Count Auto Diff] Stat Lab 05/27/23 14:56 Completed CMP [Comprehensive Metabolic Panel] Stat Lab 05/27/23 14:56 Completed HCG Qualitative, Serum Stat Lab 05/27/23 14:56 Completed Lipase Stat Lab 05/27/23 14:56 Completed UA [Urinalysis and Microscopic] Stat Lab 05/27/23 15:19 Ordered Medical Decision Narrative: Patient is a morbidly obese 42-year-old female with nausea vomiting diarrhea diffuse abdominal pain and tenderness throughout the abdomen with some rebound and guarding with primary localized tenderness in the right lower quadrant differential includes viral gastroenteritis bowel obstruction terminal ileitis kidney stone appendicitis etc. Will do a contrasted CT scan to further evaluate this. IV fluids pain medicine nausea medicine have been administered will reassess. Reassessment labs and CT performed which I first interpreted which show no acute pathology. Of note on the CT scan per radiology read there is significant fatty infiltration patient has mildly elevated AST. She is morbidly obese also has an elevated blood sugar. 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 Will need to follow-up with an production material handler and equipment operator warehouse and I have told her about this. She is also been advised to lose weight. Her symptoms today are most likely secondary to a viral syndrome. There is a new FDA approved medication for fatty liver disease that I told her about and she will follow-up with specialist as well as her primary care doctor. Critical Care Critical Care Time Critical Care Time: No
[2023-05-27] MEDS: MORPHINE 4MG/ML SYRINGE 4 MG IV (15:28)
[2023-05-27] MEDS: LACTATED RINGERS 1000ML 1,000 ML 999 ML IV (15:29)
[2023-05-27] MEDS: ONDANSETRON 4MG/2ML VIAL 4 MG IV (15:29)
[2023-05-27 15:30] LABS: Basophils # 0.1 K/mm3 (0-0.2); Basophils % 0.7 % (0.1-2.0); Eosinophils # 0.1 K/mm3 (0.0-0.4); Eosinophils % 0.4 % (0.1-12.0); Hematocrit 53.2 % (37.0-47.0); Hemoglobin 17.6 g/dL (12.2-16.2); Lymphocytes # 2.3 K/mm3 (0.7-4.5); Lymphocytes % 14.9 % (10-50); Mean Corpuscular HGB Conc 33.2 g/dL (31.8-35.4); Mean Corpuscular Hemoglobin 30.7 pg (27.0-31.2); Mean Corpuscular Volume 92.5 fl (81-99); Mean Platelet Volume 8.1 fl (7.4-10.4); Monocytes # 0.7 K/mm3 (0.1-1.0); Monocytes % 4.2 % (1.7-9.3); Neutrophils # 12.3 K/mm3 (1.8-7.8); Neutrophils % 79.6 % (37.0-80.0); Platelet Count 438 K/mm3 (142-424); Red Blood Count 5.75 M/mm3 (4.20-5.40); Red Cell Distribution Width 13.1 % (11.5-17.5); White Blood Count 15.5 K/mm3 (4.8-10.8)
[2023-05-27 15:32] LABS: MANUAL DIFFERENTIAL MANUAL DIFFERENTIAL (MANUAL DIFF)
[2023-05-27 15:33] LABS: Chloride 106 mmol/L (98-107); Potassium 4.2 mmoL/L (3.5-5.1); Sodium 135 mmol/L (136-145)
[2023-05-27 15:34] LABS: HCG Qualitative, Serum Negative (Negative)
[2023-05-27 15:36] LABS: Alanine Aminotransferase 48 U/L (12-78); Albumin Level 4.4 g/dl (3.5-5.0); Albumin/Globulin Ratio 1.4 (1.1-1.8); Alkaline Phosphatase 121 U/L (38-126); Anion Gap 15.2 mEq/L (5-15); Aspartate Amino Transferase 45 U/L (14-36); Bilirubin,Total 0.9 mg/dl (0.2-1.3); Blood Urea Nitrogen 14 mg/dl (7-17); Carbon Dioxide 18 mmol/L (22.0-30.0); Creatinine Clearance Estimated 117 mL/min (50-200); Estimated Glomerular Filt Rate 136 ml/min (>60); GFR (African American) 165 ML/MIN (>60); Globulin 3.1 g/dL (1.3-3.2); Total Protein,Serum 7.5 g/dl (6.3-8.2)
[2023-05-27 15:37] LABS: Calcium 9.5 mg/dl (8.4-10.2); Glucose 278 mg/dl (74-100); Lipase 128 U/L (23-300)
[2023-05-27] MEDS: IOPAMIDOL-370 (76%);100ML BOTTLE 75 ML IV (15:47)
[2023-05-27] MEDS: SODIUM CHLORIDE 0.9% 10ML SYR (RAD ONLY) 10 ML IV (15:47)
--- NOTE | 2023-05-27 16:01 | PC.NURSE ---
pt states she is still unable to urinate.
[2023-05-27 16:40] LABS: Lymphocytes % 12 % (10-50); Monocytes % 2 % (2-9); Neutrophils % 86 % (42-76); Platelet Estimate Normal; RBC Morphology Normal; Total Cells Counted 100
--- NOTE | 2023-05-27 17:06 | PC.NURSE ---
rounded on pt states no needs at this time,call light in reach
== END 2023-05-27 18:34 | disposition home or self-care (01) ==
PROVIDERS: Emergency Provider Student in an Organized Health Care Education/Training Program
DX: R10.31 Right lower quadrant pain (principal); R11.2 Nausea with vomiting, unspecified; R19.7 Diarrhea, unspecified; K76.0 Fatty (change of) liver, not elsewhere classified; E11.65 Type 2 diabetes mellitus with hyperglycemia; E66.01 Morbid (severe) obesity due to excess calories; I10 Essential (primary) hypertension; K21.9 Gastro-esophageal reflux disease without esophagitis; Z87.891 Personal history of nicotine dependence
CPT/HCPCS: 74177; 80053; 83690; 84703; 85007; 85025; 96361; 96374; 96375; 99285; J2405; Q9967

== ENCOUNTER 2023-06-12 16:46 | Outpatient (CLI) | payer BC, OTHER, SELFPAY ==
--- NOTE | 2023-06-12 16:57 | MM_ITS ---
PROCEDURE INFORMATION: Exam: MG Bilateral Screening 3D Mammography Exam date and time: 06/12/2023 4:51 PM Age: 42 years old Clinical indication: Screening. No family history of breast cancer. History of benign left needle biopsy. TECHNIQUE: Imaging protocol: Bilateral Screening tomosynthesis and 2D mammography including computer-aided detection (CAD) when performed. COMPARISON: 1. MG MM DIG MAMM DX UNILAT LT CAD 08/25/2020 2:41 PM 2. US BREAST LT COMPLETE 08/25/2020 3:07 PM FINDINGS: MAMMOGRAPHY: Breast composition: There are scattered areas of fibroglandular density. Mass: None. Architectural distortion: None. Calcifications: No suspicious calcifications. Asymmetric density: No developing asymmetry. Skin thickening: None. Axillary adenopathy: None. IMPRESSION: No mammographic evidence of malignancy. Annual screening is recommended unless otherwise clinically indicated. ASSESSMENT: BI-RADS Category 1: Negative
== END 2023-06-12 23:59 ==
LOC: RAD 16:47
PROVIDERS: PCP Nurse Practitioner Family; Visit Provider Nurse Practitioner Family
DX: Z12.31 Encounter for screening mammogram for malignant neoplasm of breast (principal)
CPT/HCPCS: 77063; 77067

== ENCOUNTER 2023-07-10 09:23 | Outpatient (CLI) | payer BC, OTHER, SELFPAY ==
--- NOTE | 2023-07-10 09:29 | US_ITS ---
FINAL REPORT TECHNIQUE: Multiple transverse and longitudinal images CLINICAL HISTORY: ABN FINDINGS ON DX IMAGING COMPARISON: None FINDINGS: The gallbladder has been surgically resected. No biliary ductal dilatation is appreciated. No fluid collections are seen. There is fatty infiltration of the liver. There is an ill-defined hypoechoic area in the left hepatic lobe slightly larger than 2 cm in size. When compared to the recent CT of May 27, 2023 there is no lesion seen to correlate with this hypoechoic area, of uncertain significance. Limited portions of the right kidney are unremarkable. IMPRESSION: Fatty infiltration of the liver. There is an ill-defined hypoechoic area seen on ultrasound in the left hepatic lobe that does not have a correlate on a recent CT examination, suggesting that it may not be significant. Reviewed, Interpreted and Dictated by Linwood Vigil MD Transcribed by Bridgette Wills Authenticated and [facility]
== END 2023-07-10 23:59 | disposition home or self-care (01) ==
LOC: RAD 09:23
PROVIDERS: PCP Nurse Practitioner Family; Visit Provider Nurse Practitioner Family
DX: R93.2 Abnormal findings on diagnostic imaging of liver and biliary tract (principal)
CPT/HCPCS: 76705

== ENCOUNTER 2023-10-06 10:42 | Outpatient (CLI) | payer BC, OTHER, SELFPAY ==
[2023-10-06 11:18] LABS: Basophils # 0.1 K/mm3 (0-0.2); Basophils % 0.9 % (0.1-2.0); Eosinophils # 0.2 K/mm3 (0.0-0.4); Eosinophils % 1.7 % (0.1-12.0); Hematocrit 47.9 % (37.0-47.0); Hemoglobin 15.9 g/dL (12.2-16.2); Lymphocytes # 2.4 K/mm3 (0.7-4.5); Lymphocytes % 26.3 % (10-50); Mean Corpuscular HGB Conc 33.3 g/dL (31.8-35.4); Mean Corpuscular Hemoglobin 30.9 pg (27.0-31.2); Mean Corpuscular Volume 92.8 fl (81-99); Mean Platelet Volume 7.3 fl (7.4-10.4); Monocytes # 0.5 K/mm3 (0.1-1.0); Monocytes % 5.6 % (1.7-9.3); Neutrophils % 65.5 % (37.0-80.0); Platelet Count 370 K/mm3 (142-424); Red Blood Count 5.16 M/mm3 (4.20-5.40); Red Cell Distribution Width 13.7 % (11.5-17.5); White Blood Count 9.2 K/mm3 (4.8-10.8)
[2023-10-06 11:27] LABS: Creatinine,Urine Random 72 mg/dL (Not Estab.)
[2023-10-06 11:34] LABS: Albumin Level 4.2 g/dl (3.5-5.0); Chloride 109 mmol/L (98-107); Potassium 4.4 mmoL/L (3.5-5.1); Sodium 138 mmol/L (136-145)
[2023-10-06 11:36] LABS: Blood Urea Nitrogen 9 mg/dl (7-17); Estimated Glomerular Filt Rate 135 ml/min (>60); GFR (African American) 164 ML/MIN (>60)
[2023-10-06 11:37] LABS: Alanine Aminotransferase 29 U/L (12-78); Albumin/Globulin Ratio 1.7 (1.1-1.8); Alkaline Phosphatase 76 U/L (38-126); Anion Gap 11.4 mEq/L (5-15); Aspartate Amino Transferase 28 U/L (14-36); Bilirubin,Total 0.6 mg/dl (0.2-1.3); Calcium 9.5 mg/dl (8.4-10.2); Carbon Dioxide 22 mmol/L (22.0-30.0); Cholesterol 139 mg/dl (140-200); Globulin 2.5 g/dL (1.3-3.2); Glucose 138 mg/dl (74-100); HDL Cholesterol 47 mg/dl (40-60); Total Protein,Serum 6.7 g/dl (6.3-8.2); Triglycerides 181 mg/dl (30-150); VLDL Cholesterol 36 mg/dL (0-40)
[2023-10-06 11:38] LABS: Microalbumin < 6.000 mg/L (0-16.7)
[2023-10-06 11:48] LABS: Direct LDL Cholesterol 60.11 mg/dL (100-129)
[2023-10-06 12:35] LABS: 25-OH Vitamin D, Total 45.7 ng/mL (30-100)
== END 2023-10-06 23:59 | disposition home or self-care (01) ==
PROVIDERS: PCP Nurse Practitioner Family; Visit Provider Nurse Practitioner Family
DX: E11.65 Type 2 diabetes mellitus with hyperglycemia (principal); E55.9 Vitamin D deficiency, unspecified; D58.2 Other hemoglobinopathies; I10 Essential (primary) hypertension; E78.2 Mixed hyperlipidemia; R13.10 Dysphagia, unspecified; Z79.84 Long term (current) use of oral hypoglycemic drugs
CPT/HCPCS: 36415; 80053; 80061; 82043; 82306; 82570; 83036; 85025

== ENCOUNTER 2023-12-20 20:30 | Emergency (ER) | payer BC, OTHER, SELFPAY ==
[2023-12-20 20:32] VITALS: BP 164/96; PULSE 107; RESP 18; TEMP 36.8; O2SAT 96; BMI 44.6
--- NOTE | 2023-12-20 20:40 | ED_ITS ---
Discharge Plan Disposition Patient Disposition: Home, Self-Care Condition: Good Prescriptions Prescriptions: No Action colestipol 1 gram tablet PO losartan 50 mg tablet 50 mg PO DAILY Patient Comments: TAKE ONE TABLET BY MOUTH EVERY DAY pantoprazole 40 mg tablet,delayed release (DR/EC) 40 mg PO DAILY Patient Comments: TAKE ONE TABLET BY MOUTH EVERY DAY Tradjenta 5 mg tablet 5 mg PO DAILY Patient Comments: TAKE ONE TABLET BY MOUTH EVERY DAY azithromycin [Zithromax] 250 mg tablet 250 mg PO UD DOSE PK Qty: 6 0RF Rx Instructions: Take two (2) tablets today, then one (1) tablet days #2 thru #5 benzonatate [benzonatate] 100 mg capsule 100 mg PO TIDP PRN (Reason: Cough) Qty: 30 0RF methylprednisolone 4 mg Tablets,Dose Pack 4 mg PO DIRECTED Qty: 21 0RF ondansetron 4 mg tablet,disintegrating 4 mg PO Q6H PRN (Reason: nausea and vomiting) 5 Days Qty: 20 0RF Referrals Follow up/Referrals: Lisa Espinal MD [Referring] - See instructions Casandra Oates APRN [Primary Care Provider] - See instructions Activity Restrictions/Add. Instructions Additional Instructions/Restrictions: Please continue taking Benadryl every 4 hours as needed for itching. Please call tomorrow to make appointment dermatology for further evaluation. Return to ER for any worsening signs or symptoms as needed Clinical Impressions Clinical Impression: Urticaria Instructions Patient Instructions: DI for Hives Print Language Print Language: Kazakh Discharge ED Provider: Adam Rodrigues General Adult HPI <ROSY Freire - Last Filed: 12/20/23 23:02> General Chief complaint: Skin/Abscess/Foreign Body Stated complaint: itchy hives Time Seen by Provider: 12/20/23 20:40 History of Present Illness HPI narrative: Patient is a 43-year-old female presents for evaluation of hives. Patient has had a normal day had no new foods no new exposures to chemicals or close environmental factors but developed a macular pruritic scattered nonconfluent body wide rash over her torso and arms. She has no angioedema she has no respiratory involvement chest pain fever chills hemoptysis hematochezia melena nausea vomit diarrhea. She has never had urticaria before. Related Data Home Medications ?Medication ?Instructions ?Recorded ?Confirmed colestipol 1 gram tablet tab PO 05/18/22 05/18/22 linagliptin 5 mg tablet (Tradjenta) 5 mg PO DAILY 02/19/23 02/19/23 losartan 50 mg tablet 50 mg PO DAILY 02/19/23 02/19/23 pantoprazole 40 mg tablet,delayed 40 mg PO DAILY 02/19/23 02/19/23 release Previous Rx's ?Medication ?Instructions ?Recorded azithromycin 250 mg tablet 250 mg PO UD DOSE PK #6 tabs 02/19/23 (Zithromax) benzonatate 100 mg capsule 100 mg PO TIDP PRN Cough #30 caps 02/19/23 methylprednisolone 4 mg tablets in 4 mg PO DIRECTED #21 tabs 02/19/23 a dose pack ondansetron 4 mg disintegrating 4 mg PO Q6H PRN nausea and 05/27/23 tablet vomiting 5 days #20 tabs Allergies Allergy/AdvReac Type Severity Reaction Status Date / Time codeine [CODEINE] Allergy Severe S-DIFF. Verified 05/27/23 15:06 BREATHING PFSH <ROSY Freire - Last Filed: 12/20/23 23:02> [facility] Disclaimer: The information contained in this section may have been updated after the patient was seen, as this information can be updated by other users. Medical History Diabetes mellitus, type 2 Former heavy tobacco smoker Gastroesophageal reflux disease Hypertension Obesity Restless sleeper Snoring Surgical History History of cholecystectomy History of colonoscopy History of hysterectomy Social History Smoking Status: Unknown if ever smoked alcohol intake: never substance use type: denies use current occupational status: employed Travel in the last 8 weeks: None housing: house current occupation: [employer] caffeine: Yes Other Medical History Have you received the Flu Vaccine for this season: No Have you received the Pneumonia Vaccine: No <ROSY Freire - Last Filed: 12/20/23 23:02> ROS Obtained: Yes Systems reviewed as appropriate & no additional complaints except as documented Physical Exam <ROSY Freire - Last Filed: 12/20/23 23:02> General General appearance: alert and in no apparent distress Respiratory Respiratory exam: Present normal lung sounds bilaterally Cardiovascular Cardiovascular exam: Present regular rate Neurological Exam Neurological exam: Present alert and oriented X3 Medical Decision Making <ROSY Freire - Last Filed: 12/20/23 23:02> Medical Records Medical records reviewed: Yes I reviewed the patient's medical records. Screening: Per USPSTF and CDC recommendations, given the prevalence of disease in our region, it is our hospital?s policy to screen for HIV and viral Hepatitis for all patients aged 18 and over and those with ongoing risk factors. Ever Inquiry Pt receiving controlled substance: No Vital Signs: 12/20/23 20:32 12/20/23 21:00 12/20/23 21:30 Temperature 98.3 F Temperature Source Oral Pulse Rate 99 H 92 H Pulse Rate [Left] 107 H Respiratory Rate 18 Blood Pressure 179/109 H 177/116 H Blood Pressure [Right Arm] 164/96 H Blood Pressure Mean [Right Arm] 118 02 Sat by Pulse Oximetry 96 91 L 94 L Oxygen Delivery Method Room Air 12/20/23 22:00 12/20/23 22:19 Temperature 98.2 F Temperature Source Pulse Rate 85 88 Pulse Rate [Left] Respiratory Rate 20 Blood Pressure 170/109 H 152/95 H Blood Pressure [Right Arm] Blood Pressure Mean [Right Arm] 02 Sat by Pulse Oximetry 98 Oxygen Delivery Method Room Air Lab Data Lab results reviewed: Yes I reviewed the patient's lab results. Lab Results 12/20/23 20:52: WBC 10.6, RBC 5.35, Hgb 16.0, Hct 48.3 H, MCV 90.3, MCH 29.8, MCHC 33.0, RDW 14.3, Plt Count 403, MPV 7.4, Neut % (Auto) 64.3, Lymph % (Auto) 26.5, Lipscomb % (Auto) 5.4, Eos % (Auto) 2.6, Baso % (Auto) 1.3, Neut # (Auto) 6.8, Lymph # (Auto) 2.8, Lipscomb # (Auto) 0.6, Eos # (Auto) 0.3, Baso # (Auto) 0.1, ESR 14, Sodium 134 L, Potassium 4.0, Chloride 103, Carbon Dioxide 21 L, Anion Gap 14.0, BUN 19 H, Creatinine 0.60, Estimated Creat Clear 105, Estimated GFR 110, Est GFR ( Amer) 133, Glucose 255 H, Calcium 9.7, Total Bilirubin 0.6, AST 34, ALT 38, Alkaline Phosphatase 71, Total Protein 7.6, Albumin 4.5, Globulin 3.1, Albumin/Globulin Ratio 1.5, TSH 2.20, Free T4 Index 2.9 L, Thyroxine (T4) 9.3, T3 Uptake 31 12/20/23 20:52 12/20/23 20:52 Orders (Tests/Meds): ED MEDICATIONS Discontinued Medications Generic Name Dose Route Start Last Admin Trade Name Freq PRN Reason Stop Dose Admin Dexamethasone Sodium Phosphate 10 mg 12/20/23 20:46 12/20/23 21:14 Dexamethasone 4mg/Ml 5ml Mdv IV 12/20/23 20:47 10 mg ONCE ONE Administration Diphenhydramine HCl 50 mg 12/20/23 20:46 12/20/23 21:14 Diphenhydramine 50mg/Ml Vial IV 12/20/23 20:47 50 mg ONCE ONE Administration Famotidine 20 mg 12/20/23 20:46 12/20/23 21:14 Famotidine 20mg/2ml Vial IV 12/20/23 20:47 20 mg ONCE ONE Administration Sodium Chloride 8 ml 12/20/23 20:46 Sodium Chloride 0.9% 10ml Vial IV 01/19/24 20:45 NEEDED PRN dilute pepcid ORDERS Category Date Time Status CBC w/Auto Diff [Complete Blood Count Auto Diff] Stat Lab 12/20/23 20:52 Completed CMP [Comprehensive Metabolic Panel] Stat Lab 12/20/23 20:52 Completed ESR [Erythrocyte Sedimentation Rate] Stat Lab 12/20/23 20:52 Completed Thyroid Panel Stat Lab 12/20/23 20:52 Completed Medical Decision Narrative: In summary patient is a 43-year-old female who presents to the emergency department for evaluation of urticaria. Patient is initially with a blood pressure of 164/96 heart rate 107 satting at 96% on room air breathing 18 times a minute upon arrival, afebrile. Physical exam is remarkable for erythematous wheals scattered all over her torso including back chest upper extremities sparing the face although she does have facial flushing. She has no angioedema. Lung sounds are clear without wheeze with no increased work of breathing.. Differential diagnosis includes urticaria versus allergen ingestion. Initial workup will be conducted with hematologic labs. Initial interventions include Benadryl Decadron Pepcid. Initial workup reviewed by me shows that she has an elevated blood sugar but she is a known diabetic otherwise the remainder of her hematologic labs are nonactionable including an normal sed rate. Upon repeat evaluation patient reported defervescent's of her urticaria and flushing. Given this patient is appropriate for discharge with instructions on continuing taking Benadryl every 4 hours as needed for symptoms, referral to dermatology and possibly asthma allergy for provocative testing and strict return precautions. <Adam Rodrigues MD - Last Filed: 12/21/23 00:36> Vital Signs: 12/20/23 20:32 12/20/23 21:00 12/20/23 21:30 Temperature 98.3 F Temperature Source Oral Pulse Rate 99 H 92 H Pulse Rate [Left] 107 H Respiratory Rate 18 Blood Pressure 179/109 H 177/116 H Blood Pressure [Right Arm] 164/96 H Blood Pressure Mean [Right Arm] 118 02 Sat by Pulse Oximetry 96 91 L 94 L Oxygen Delivery Method Room Air 12/20/23 22:00 12/20/23 22:19 Temperature 98.2 F Temperature Source Pulse Rate 85 88 Pulse Rate [Left] Respiratory Rate 20 Blood Pressure 170/109 H 152/95 H Blood Pressure [Right Arm] Blood Pressure Mean [Right Arm] 02 Sat by Pulse Oximetry 98 Oxygen Delivery Method Room Air Lab Data Lab Results 12/20/23 20:52: WBC 10.6, RBC 5.35, Hgb 16.0, Hct 48.3 H, MCV 90.3, MCH 29.8, MCHC 33.0, RDW 14.3, Plt Count 403, MPV 7.4, Neut % (Auto) 64.3, Lymph % (Auto) 26.5, Lipscomb % (Auto) 5.4, Eos % (Auto) 2.6, Baso % (Auto) 1.3, Neut # (Auto) 6.8, Lymph # (Auto) 2.8, Lipscomb # (Auto) 0.6, Eos # (Auto) 0.3, Baso # (Auto) 0.1, ESR 14, Sodium 134 L, Potassium 4.0, Chloride 103, Carbon Dioxide 21 L, Anion Gap 14.0, BUN 19 H, Creatinine 0.60, Estimated Creat Clear 105, Estimated GFR 110, Est GFR ( Amer) 133, Glucose 255 H, Calcium 9.7, Total Bilirubin 0.6, AST 34, ALT 38, Alkaline Phosphatase 71, Total Protein 7.6, Albumin 4.5, Globulin 3.1, Albumin/Globulin Ratio 1.5, TSH 2.20, Free T4 Index 2.9 L, Thyroxine (T4) 9.3, T3 Uptake 31 Orders (Tests/Meds): ED MEDICATIONS Discontinued Medications Generic Name Dose Route Start Last Admin Trade Name Freq PRN Reason Stop Dose Admin Dexamethasone Sodium Phosphate 10 mg 12/20/23 20:46 12/20/23 21:14 Dexamethasone 4mg/Ml 5ml Mdv IV 12/20/23 20:47 10 mg ONCE ONE Administration Diphenhydramine HCl 50 mg 12/20/23 20:46 12/20/23 21:14 Diphenhydramine 50mg/Ml Vial IV 12/20/23 20:47 50 mg ONCE ONE Administration Famotidine 20 mg 12/20/23 20:46 12/20/23 21:14 Famotidine 20mg/2ml Vial IV 12/20/23 20:47 20 mg ONCE ONE Administration Sodium Chloride 8 ml 12/20/23 20:46 Sodium Chloride 0.9% 10ml Vial IV 01/19/24 20:45 NEEDED PRN dilute pepcid ORDERS Category Date Time Status CBC w/Auto Diff [Complete Blood Count Auto Diff] Stat Lab 12/20/23 20:52 Completed CMP [Comprehensive Metabolic Panel] Stat Lab 12/20/23 20:52 Completed ESR [Erythrocyte Sedimentation Rate] Stat Lab 12/20/23 20:52 Completed Thyroid Panel Stat Lab 12/20/23 20:52 Completed Medical Decision Narrative: In summary patient is a 43-year-old female who presents to the emergency department for evaluation of urticaria. Patient is initially with a blood pressure of 164/96 heart rate 107 satting at 96% on room air breathing 18 times a minute upon arrival, afebrile. Physical exam is remarkable for erythematous wheals scattered all over her torso including back chest upper extremities sparing the face although she does have facial flushing. She has no angioedema. Lung sounds are clear without wheeze with no increased work of breathing.. Differential diagnosis includes urticaria versus allergen ingestion. Initial workup will be conducted with hematologic labs. Initial interventions include Benadryl Decadron Pepcid. Initial workup reviewed by me shows that she has an elevated blood sugar but she is a known diabetic otherwise the remainder of her hematologic labs are nonactionable including an normal sed rate. Upon repeat evaluation patient reported defervescent's of her urticaria and flushing. Given this patient is appropriate for discharge with instructions on continuing taking Benadryl every 4 hours as needed for symptoms, referral to dermatology and possibly asthma allergy for provocative testing and strict return precautions. I, Adam Rodrigues MD, was present at the time of patient's arrival to the emergency department and agree with the plan and management as mentioned above. Critical Care <ROSY Freire - Last Filed: 12/20/23 23:02> Critical Care Time Critical Care Time: No
[2023-12-20 21:00] VITALS: BP 179/109; PULSE 99; O2SAT 91
[2023-12-20 21:11] LABS: Basophils # 0.1 K/mm3 (0-0.2); Basophils % 1.3 % (0.1-2.0); Eosinophils # 0.3 K/mm3 (0.0-0.4); Eosinophils % 2.6 % (0.1-12.0); Hematocrit 48.3 % (37.0-47.0); Lymphocytes # 2.8 K/mm3 (0.7-4.5); Lymphocytes % 26.5 % (10-50); Mean Corpuscular Hemoglobin 29.8 pg (27.0-31.2); Mean Corpuscular Volume 90.3 fl (81-99); Mean Platelet Volume 7.4 fl (7.4-10.4); Monocytes # 0.6 K/mm3 (0.1-1.0); Monocytes % 5.4 % (1.7-9.3); Neutrophils # 6.8 K/mm3 (1.8-7.8); Neutrophils % 64.3 % (37.0-80.0); Platelet Count 403 K/mm3 (142-424); Red Blood Count 5.35 M/mm3 (4.20-5.40); Red Cell Distribution Width 14.3 % (11.5-17.5); White Blood Count 10.6 K/mm3 (4.8-10.8)
[2023-12-20] MEDS: diphenhydrAMINE 50MG/ML VIAL 50 MG IV (21:14)
[2023-12-20] MEDS: FAMOTIDINE 20MG/2ML VIAL 20 MG IV (21:14)
[2023-12-20] MEDS: DEXAMETHASONE 4MG/ML 5ML MDV 10 MG IV (21:14)
[2023-12-20 21:19] LABS: Albumin Level 4.5 g/dl (3.5-5.0); Chloride 103 mmol/L (98-107); Sodium 134 mmol/L (136-145)
[2023-12-20 21:22] LABS: Alanine Aminotransferase 38 U/L (12-78); Albumin/Globulin Ratio 1.5 (1.1-1.8); Alkaline Phosphatase 71 U/L (38-126); Aspartate Amino Transferase 34 U/L (14-36); Bilirubin,Total 0.6 mg/dl (0.2-1.3); Blood Urea Nitrogen 19 mg/dl (7-17); Calcium 9.7 mg/dl (8.4-10.2); Carbon Dioxide 21 mmol/L (22.0-30.0); Creatinine Clearance Estimated 105 mL/min (50-200); Estimated Glomerular Filt Rate 110 ml/min (>60); GFR (African American) 133 ML/MIN (>60); Globulin 3.1 g/dL (1.3-3.2); Glucose 255 mg/dl (74-100); Total Protein,Serum 7.6 g/dl (6.3-8.2)
[2023-12-20 21:30] VITALS: BP 177/116; PULSE 92; O2SAT 94
[2023-12-20 21:39] LABS: Triiodothryronine (T3) Uptake 31 % (23.5-40.5)
[2023-12-20 21:40] LABS: Free Thyroxine Index 2.9 ug/dL (5.93-13.13); T4 (Thyroxine) 9.3 ug/dl (5.53-11.0)
[2023-12-20 21:49] LABS: Erythrocyte Sedimentation Rate 14 mm/hr (0-20)
[2023-12-20 22:00] VITALS: BP 170/109; PULSE 85; O2SAT 98
[2023-12-20 22:19] VITALS: BP 152/95; PULSE 88; RESP 20; TEMP 36.8; O2SAT 97
== END 2023-12-20 22:23 | disposition home or self-care (01) ==
PROVIDERS: Physician Assistant; Emergency Provider Student in an Organized Health Care Education/Training Program; PCP Nurse Practitioner Family
DX: L50.9 Urticaria, unspecified (principal); R21 Rash and other nonspecific skin eruption
CPT/HCPCS: 80050; 80053; 84436; 84443; 84479; 85025; 85651; 96374; 96375; 99283; J1100; J1200; S0028

== ENCOUNTER 2024-01-20 21:02 | Observation (INO) | payer BC, OTHER, SELFPAY ==
[2024-01-20] MEDS: METHYLPREDNISOLONE SOD SUCC 125MG VIAL 125 MG IV (21:03)
[2024-01-20] MEDS: diphenhydrAMINE 50MG/ML VIAL 50 MG IV (21:03)
[2024-01-20] MEDS: FAMOTIDINE 20MG/2ML VIAL 20 MG IV (21:03)
[2024-01-20 21:05] VITALS: BP 208/112; PULSE 120; RESP 28; TEMP 36.7; O2SAT 95; BMI 45.2
--- NOTE | 2024-01-20 21:12 | ED_ITS ---
Discharge Plan Disposition Patient Disposition: Admitted Condition: Good Chief Complaint: Allergic Reaction Prescriptions Prescriptions: New epinephrine [EpiPen] 0.3 mg/0.3 mL auto-injector 0.3 mg IM Q10M PRN (Reason: anaphylaxis) Qty: 2 1RF Rx Instructions: for 2 doses No Action colestipol 1 gram tablet PO losartan 50 mg tablet 50 mg PO DAILY Patient Comments: TAKE ONE TABLET BY MOUTH EVERY DAY pantoprazole 40 mg tablet,delayed release (DR/EC) 40 mg PO DAILY Patient Comments: TAKE ONE TABLET BY MOUTH EVERY DAY Tradjenta 5 mg tablet 5 mg PO DAILY Patient Comments: TAKE ONE TABLET BY MOUTH EVERY DAY azithromycin [Zithromax] 250 mg tablet 250 mg PO UD DOSE PK Qty: 6 0RF Rx Instructions: Take two (2) tablets today, then one (1) tablet days #2 thru #5 benzonatate [benzonatate] 100 mg capsule 100 mg PO TIDP PRN (Reason: Cough) Qty: 30 0RF methylprednisolone 4 mg Tablets,Dose Pack 4 mg PO DIRECTED Qty: 21 0RF ondansetron 4 mg tablet,disintegrating 4 mg PO Q6H PRN (Reason: nausea and vomiting) 5 Days Qty: 20 0RF Referrals Follow up/Referrals: Casandra Oates APRN [Primary Care Provider] - See instructions Clinical Impressions Clinical Impression: Angioedema Print Language Print Language: Citizen Of [place] Discharge ED Provider: Joanna Roca General Adult HPI <Joanna Roca DO - Last Filed: 01/20/24 23:29> General Chief complaint: Allergic Reaction Stated complaint: allergic reaction Time Seen by Provider: 01/20/24 21:06 Mode of Arrival: Wheelchair Source of Information: Patient Limitations: No Limitations Description of Symptoms (Recalled from ER Triage Doc. by RN): Pt arrived from [facility] w/ c/o angioedema/soa starting just CLINICAL REHABILITATION COORDINATOR while eating dinner. possible allergic reaction. Reports only allergy to codeine. Pt alert, tachypnic, a&oX4 History of Present Illness HPI narrative: This patient is a 43-year-old female with a history of hypertension on losartan, diabetes, hyperlipidemia, GERD, and obesity presenting to the emergency department for evaluation with concern for tongue swelling, shortness of breath. Patient states that she was eating dinner when suddenly she felt she was getting choked and could not swallow. She then noticed tongue swelling and feeling like her airway was tight and she could not breathe. This happened just prior to arrival. Patient's daughter drove her in for further evaluation. She arrives POV. She notes she was evaluated here last month for an allergic reaction. On medical record review, it looks that she was seen here 12/20/2023 for urticarial rash. She denies experiencing anything like this at that time. She notes that she is allergic to codeine, which she has not been exposed to or taken. She denies any other known allergies. She has never had to have epinephrine in the past. No nausea, vomiting, abdominal pain, cramping, diarrhea, or other concerns Related Data Home Medications ?Medication ?Instructions ?Recorded ?Confirmed colestipol 1 gram tablet tab PO 05/18/22 05/18/22 linagliptin 5 mg tablet (Tradjenta) 5 mg PO DAILY 02/19/23 02/19/23 losartan 50 mg tablet 50 mg PO DAILY 02/19/23 02/19/23 pantoprazole 40 mg tablet,delayed 40 mg PO DAILY 02/19/23 02/19/23 release Previous Rx's ?Medication ?Instructions ?Recorded azithromycin 250 mg tablet 250 mg PO UD DOSE PK #6 tabs 02/19/23 (Zithromax) benzonatate 100 mg capsule 100 mg PO TIDP PRN Cough #30 caps 02/19/23 methylprednisolone 4 mg tablets in 4 mg PO DIRECTED #21 tabs 02/19/23 a dose pack ondansetron 4 mg disintegrating 4 mg PO Q6H PRN nausea and 05/27/23 tablet vomiting 5 days #20 tabs epinephrine 0.3 mg/0.3 mL 0.3 mg (0.3 mL) IM Q10M PRN 01/20/24 injection, auto-injector (EpiPen) anaphylaxis #2 ea Allergies Allergy/AdvReac Type Severity Reaction Status Date / Time codeine [CODEINE] Allergy Severe S-DIFF. Verified 05/27/23 15:06 BREATHING [facility] <Joanna Roca, DO - Last Filed: 01/20/24 23:29> [facility] Disclaimer: The information contained in this section may have been updated after the patient was seen, as this information can be updated by other users. 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 caffeine: Yes Other Medical History Have you received the Flu Vaccine for this season: No Have you received the Pneumonia Vaccine: No <Joanna Roca DO - Last Filed: 01/20/24 23:29> ROS Obtained: Yes All systems reviewed & no additional complaints except as documented Physical Exam <Joanna Roca DO - Last Filed: 01/20/24 23:29> General General appearance: alert and obese Comment: In mild distress with tachypnea, extremely flushed Head Head exam: atraumatic and normocephalic Eye Eye exam: Present normal appearance, PERRL and EOMI ENT ENT exam: Present mucous membranes moist and normal external ear exam Expanded ENT Exam Mouth exam: Present lip swelling, tongue elevation and tongue swelling Throat exam: Present muffled voice Comment: Angioedema Neck Neck exam: Present normal inspection, full ROM and trachea midline; Absent tenderness Chest Chest inspection: Present normal inspection and symmetric chest wall rise; Absent tenderness Respiratory Respiratory exam: Present normal lung sounds bilaterally; Absent respiratory distress, wheezes, stridor or accessory muscle use Cardiovascular Cardiovascular exam: Present normal rhythm and tachycardia Abdominal Exam Abdominal exam: Present soft; Absent distention, tenderness or guarding Extremities Exam Extremities exam: Present normal inspection, full ROM and normal capillary refill; Absent tenderness or edema Back Exam Back exam: Present normal inspection and full ROM; Absent tenderness Neurological Exam Neurological exam: Present alert, oriented X3, CN II-XII intact and normal gait; Absent motor sensory deficit Psychiatric Psychiatric exam: Present normal affect and normal mood Skin Skin exam: Present warm, dry and erythema (facial flushing) Medical Decision Making <oJanna Roca DO - Last Filed: 01/20/24 23:29> Medical Records Medical records reviewed: Yes I reviewed the patient's medical records. Screening: Per USPSTF and CDC recommendations, given the prevalence of disease in our region, it is our hospital?s policy to screen for HIV and viral Hepatitis for all patients aged 18 and over and those with ongoing risk factors. Ever Inquiry Pt receiving controlled substance: No Vital Signs: 01/20/24 21:05 01/20/24 21:31 01/20/24 21:32 Temperature 98.1 F Temperature Source Axillary Pulse Rate Pulse Rate [Left Apical] 120 H Respiratory Rate 28 H Blood Pressure 165/99 H 175/93 H Blood Pressure [Right Arm] 208/112 H Blood Pressure Mean 131 120 Blood Pressure Mean [Right Arm] 144 Blood Pressure Source [Right Arm] Manual Cuff/ Auscultation 02 Sat by Pulse Oximetry 95 Oxygen Delivery Method Room Air 01/20/24 21:32 01/20/24 22:01 01/20/24 22:09 Temperature Temperature Source Pulse Rate 95 H 98 H 93 H Pulse Rate [Left Apical] Respiratory Rate 25 H 15 Blood Pressure 175/87 H Blood Pressure [Right Arm] Blood Pressure Mean Blood Pressure Mean [Right Arm] Blood Pressure Source [Right Arm] 02 Sat by Pulse Oximetry 95 95 Oxygen Delivery Method 01/20/24 22:31 Temperature Temperature Source Pulse Rate 98 H Pulse Rate [Left Apical] Respiratory Rate 18 Blood Pressure 156/88 H Blood Pressure [Right Arm] Blood Pressure Mean 110 Blood Pressure Mean [Right Arm] Blood Pressure Source [Right Arm] 02 Sat by Pulse Oximetry 97 Oxygen Delivery Method Lab Data Lab results reviewed: Yes I reviewed the patient's lab results. Lab Results 01/20/24 21:10: WBC 10.2, RBC 5.44 H, Hgb 16.1, Hct 48.4 H, MCV 88.9, MCH 29.7, MCHC 33.3, RDW 14.2, Plt Count 387, MPV 7.2 L, Neut % (Auto) 42.2, Lymph % (Auto) 50.7 H, [place] % (Auto) 5.5, Eos % (Auto) 1.6, Baso % (Auto) 4.0 H, Neut # (Auto) 4.3, Lymph # (Auto) 5.2 H, [place] # (Auto) 0.6, Eos # (Auto) 0.2, Baso # (Auto) 0.4 H, Total Counted 100, Neutrophils % (Manual) 42, Lymphocytes % (Manual) 48, Monocytes % (Manual) 6, Eosinophils % (Manual) 4 H, Platelet Estimate Normal, Sodium 135 L, Potassium 3.7, Chloride 105, Carbon Dioxide 17 L, Anion Gap 16.7 H, BUN 16, Creatinine 0.50 L, Estimated Creat Clear 127, Estimated GFR 135, Est GFR ( Amer) 164, Glucose 316 H, Calcium 9.2, Total Bilirubin 0.6, AST 31, ALT 43, Alkaline Phosphatase 93, Total Protein 7.6, Albumin 4.3, Globulin 3.3 H, Albumin/Globulin Ratio 1.3, HIV 1&2 Antibody Rapid Nonreactive 01/20/24 21:10 01/20/24 21:10 Orders (Tests/Meds): ED MEDICATIONS Generic Name Dose Route Start Last Admin Trade Name Freq PRN Reason Stop Dose Admin Sodium Chloride 8 ml 01/20/24 21:09 Sodium Chloride 0.9% 10ml Vial IV 02/19/24 21:08 NEEDED PRN dilute pepcid Discontinued Medications Generic Name Dose Route Start Last Admin Trade Name Freq PRN Reason Stop Dose Admin Diphenhydramine HCl 50 mg 01/20/24 21:09 01/20/24 21:03 Diphenhydramine 50mg/Ml Vial IV 01/20/24 21:10 50 mg ONCE ONE Administration Epinephrine 0.5 ml 01/20/24 21:14 01/20/24 22:08 Epinephrine 2.25% Neb 0.5ml Ud IH 01/20/24 21:15 0.5 ml ONCE ONE Administration Epinephrine HCl 0.3 mg 01/20/24 21:09 01/20/24 21:14 Epinephrine 1 Mg/Ml Ampul IM 01/20/24 21:10 0.3 mg ONCE ONE Administration Epinephrine HCl 0.3 mg 01/21/24 00:42 Epinephrine 1 Mg/Ml Ampul IM 01/21/24 00:43 ONCE ONE Famotidine 20 mg 01/20/24 21:09 01/20/24 21:03 Famotidine 20mg/2ml Vial IV 01/20/24 21:10 20 mg ONCE ONE Administration Sodium Chloride 1,000 mls @ 999 mls/hr 01/20/24 21:27 01/20/24 21:30 Sod Chlor 0.9% 1000ml Bag IV 01/20/24 22:27 999 mls/hr .Q1H1M ONE Administration Methylprednisolone Sodium Succinate 125 mg 01/20/24 21:09 01/20/24 21:03 Methylprednisolone Sod Succ 125mg Vial IV 01/20/24 21:10 125 mg ONCE ONE Administration Tranexamic Acid 1,000 mg 01/20/24 21:06 01/20/24 21:14 Tranexamic Acid 1,000 Mg/10 Ml Vial IVP 01/20/24 21:07 1,000 mg ONCE ONE Administration ORDERS Category Date Time Status Complete Blood Count Auto Diff Stat Lab 01/20/24 21:10 Completed Comprehensive Metabolic Panel Stat Lab 01/20/24 21:10 Completed HIV (1&2) Antibody Rapid Stat Lab 01/20/24 21:10 Completed Hep C Ab with Reflex to RNA Stat Lab 01/20/24 21:10 Received ECG Data Tracing #1: I reviewed this ECG and interpreted as documented below: Sinus tachycardia with a ventricular rate of 103 bpm. Motion artifact degrades study. No obvious acute ST changes concerning for ischemia. Normal axis and intervals. ECG initial impression date: 01/20/24 ECG initial impression time: 21:15 Medical Decision Narrative: In summary, this patient is a 43-year-old female presenting to the Emergency Department for evaluation of tongue swelling, shortness of breath, and sensation that her throat is closing. Differential diagnoses considered include but are not limited to bradykinin mediated angioedema, anaphylaxis, anxiety, carcinoid syndrome. Ruling out the most morbid conditions drove assessment. It should be noted patient's history includes obesity, hypertension, hyperlipidemia, diabetes which may or may not be at goal therapy. This complicates all aspects of care by increasing patient's risk for morbidity. I reviewed patient's past medical records and noted evaluation 1 month ago for urticarial rash as per HPI. On exam, the patient is in distress with tachypnea, tongue swelling concerns for angioedema. Workup included CBC, CMP. Patient was given IM epinephrine, IV Benadryl, IV Pepcid, IV methylprednisolone, and racemic epinephrine neb. She is on losartan, so there is concern that this could be angiotensin receptor marina mediated or bradykinin mediated angioedema. Given this, she was also given 1 g of TXA IV. EKG was obtained and is reassuring with the exception of mild tachycardia. Labs were obtained that demonstrated mildly elevated anion gap, slightly low CO2, glucose 316. Given this, she was given a bolus of IV fluids. After medications, the patient is feeling a little bit better. She still has significant tongue swelling and states that it feels like her tongue is about to split down the middle. Vitals have improved on cardiac telemetry, she is no longer tachypneic or tachycardic. At 2130, patient was placed in ED observation status pending assessment of response to medications and monitoring for rebound symptoms to determine whether or not the patient would be appropriate for discharge versus admission. The patient was provided serial reevaluations and cardiac monitoring while awaiting ultimate disposition. On subsequent reassessments, the patient is lying in bed in no acute distress with some improvement in her tongue swelling. She notes that she is feeling a little bit better. Vitals remain stable on cardiac telemetry. Patient care signed to the oncoming provider, Dr. Smith, at 0 pending continued monitoring and disposition. [Given reassuring workup and exam, it is felt that the patient is appropriate for discharge at []. Total ED observation time was []. I had a [id number] visit with the patient when providing discharge instructions. The total time involved in discharging this patient was less than 30 minutes.] <Narcisa Smith MD - Last Filed: 01/21/24 00:55> Vital Signs: 01/20/24 21:05 01/20/24 21:31 01/20/24 21:32 Temperature 98.1 F Temperature Source Axillary Pulse Rate Pulse Rate [Left Apical] 120 H Respiratory Rate 28 H Blood Pressure 165/99 H 175/93 H Blood Pressure [Right Arm] 208/112 H Blood Pressure Mean 131 120 Blood Pressure Mean [Right Arm] 144 Blood Pressure Source [Right Arm] Manual Cuff/ Auscultation 02 Sat by Pulse Oximetry 95 Oxygen Delivery Method Room Air 01/20/24 21:32 01/20/24 22:01 01/20/24 22:09 Temperature Temperature Source Pulse Rate 95 H 98 H 93 H Pulse Rate [Left Apical] Respiratory Rate 25 H 15 Blood Pressure 175/87 H Blood Pressure [Right Arm] Blood Pressure Mean Blood Pressure Mean [Right Arm] Blood Pressure Source [Right Arm] 02 Sat by Pulse Oximetry 95 95 Oxygen Delivery Method 01/20/24 22:31 Temperature Temperature Source Pulse Rate 98 H Pulse Rate [Left Apical] Respiratory Rate 18 Blood Pressure 156/88 H Blood Pressure [Right Arm] Blood Pressure Mean 110 Blood Pressure Mean [Right Arm] Blood Pressure Source [Right Arm] 02 Sat by Pulse Oximetry 97 Oxygen Delivery Method Lab Data Lab Results 01/20/24 21:10: WBC 10.2, RBC 5.44 H, Hgb 16.1, Hct 48.4 H, MCV 88.9, MCH 29.7, MCHC 33.3, RDW 14.2, Plt Count 387, MPV 7.2 L, Neut % (Auto) 42.2, Lymph % (Auto) 50.7 H, [place] % (Auto) 5.5, Eos % (Auto) 1.6, Baso % (Auto) 4.0 H, Neut # (Auto) 4.3, Lymph # (Auto) 5.2 H, [place] # (Auto) 0.6, Eos # (Auto) 0.2, Baso # (Auto) 0.4 H, Total Counted 100, Neutrophils % (Manual) 42, Lymphocytes % (Manual) 48, Monocytes % (Manual) 6, Eosinophils % (Manual) 4 H, Platelet Estimate Normal, Sodium 135 L, Potassium 3.7, Chloride 105, Carbon Dioxide 17 L, Anion Gap 16.7 H, BUN 16, Creatinine 0.50 L, Estimated Creat Clear 127, Estimated GFR 135, Est GFR ( Amer) 164, Glucose 316 H, Calcium 9.2, Total Bilirubin 0.6, AST 31, ALT 43, Alkaline Phosphatase 93, Total Protein 7.6, Albumin 4.3, Globulin 3.3 H, Albumin/Globulin Ratio 1.3, HIV 1&2 Antibody Rapid Nonreactive Orders (Tests/Meds): ED MEDICATIONS Generic Name Dose Route Start Last Admin Trade Name Freq PRN Reason Stop Dose Admin Sodium Chloride 8 ml 01/20/24 21:09 Sodium Chloride 0.9% 10ml Vial IV 02/19/24 21:08 NEEDED PRN dilute pepcid Discontinued Medications Generic Name Dose Route Start Last Admin Trade Name Freq PRN Reason Stop Dose Admin Diphenhydramine HCl 50 mg 01/20/24 21:09 01/20/24 21:03 Diphenhydramine 50mg/Ml Vial IV 01/20/24 21:10 50 mg ONCE ONE Administration Epinephrine 0.5 ml 01/20/24 21:14 01/20/24 22:08 Epinephrine 2.25% Neb 0.5ml Ud IH 01/20/24 21:15 0.5 ml ONCE ONE Administration Epinephrine HCl 0.3 mg 01/20/24 21:09 01/20/24 21:14 Epinephrine 1 Mg/Ml Ampul IM 01/20/24 21:10 0.3 mg ONCE ONE Administration Epinephrine HCl 0.3 mg 01/21/24 00:42 Epinephrine 1 Mg/Ml Ampul IM 01/21/24 00:43 ONCE ONE Famotidine 20 mg 01/20/24 21:09 01/20/24 21:03 Famotidine 20mg/2ml Vial IV 01/20/24 21:10 20 mg ONCE ONE Administration Sodium Chloride 1,000 mls @ 999 mls/hr 01/20/24 21:27 01/20/24 21:30 Sod Chlor 0.9% 1000ml Bag IV 01/20/24 22:27 999 mls/hr .Q1H1M ONE Administration Methylprednisolone Sodium Succinate 125 mg 01/20/24 21:09 01/20/24 21:03 Methylprednisolone Sod Succ 125mg Vial IV 01/20/24 21:10 125 mg ONCE ONE Administration Tranexamic Acid 1,000 mg 01/20/24 21:06 01/20/24 21:14 Tranexamic Acid 1,000 Mg/10 Ml Vial IVP 01/20/24 21:07 1,000 mg ONCE ONE Administration ORDERS Category Date Time Status Complete Blood Count Auto Diff Stat Lab 01/20/24 21:10 Completed Comprehensive Metabolic Panel Stat Lab 01/20/24 21:10 Completed HIV (1&2) Antibody Rapid Stat Lab 01/20/24 21:10 Completed Hep C Ab with Reflex to RNA Stat Lab 01/20/24 21:10 Received Medical Decision Narrative: In summary, this patient is a 43-year-old female presenting to the Emergency Department for evaluation of tongue swelling, shortness of breath, and sensation that her throat is closing. Differential diagnoses considered include but are not limited to bradykinin mediated angioedema, anaphylaxis, anxiety, carcinoid syndrome. Ruling out the most morbid conditions drove assessment. It should be noted patient's history includes obesity, hypertension, hyperlipidemia, diabetes which may or may not be at goal therapy. This complicates all aspects of care by increasing patient's risk for morbidity. I reviewed patient's past medical records and noted evaluation 1 month ago for urticarial rash as per HPI. On exam, the patient is in distress with tachypnea, tongue swelling concerns for angioedema. Workup included CBC, CMP. Patient was given IM epinephrine, IV Benadryl, IV Pepcid, IV methylprednisolone, and racemic epinephrine neb. She is on losartan, so there is concern that this could be angiotensin receptor marina mediated or bradykinin mediated angioedema. Given this, she was also given 1 g of TXA IV. EKG was obtained and is reassuring with the exception of mild tachycardia. Labs were obtained that demonstrated mildly elevated anion gap, slightly low CO2, glucose 316. Given this, she was given a bolus of IV fluids. After medications, the patient is feeling a little bit better. She still has significant tongue swelling and states that it feels like her tongue is about to split down the middle. Vitals have improved on cardiac telemetry, she is no longer tachypneic or tachycardic. At 2130, patient was placed in ED observation status pending assessment of response to medications and monitoring for rebound symptoms to determine whether or not the patient would be appropriate for discharge versus admission. The patient was provided serial reevaluations and cardiac monitoring while awaiting ultimate disposition. On subsequent reassessments, the patient is lying in bed in no acute distress with some improvement in her tongue swelling. She notes that she is feeling a little bit better. Vitals remain stable on cardiac telemetry. Patient care signed to the oncoming provider, Dr. Smith, at 2330 pending continued monitoring and disposition. Smith: Upon my assumption of care patient is stable and feeling better. I agree with the assessment and plan from the primary provider. Will continue to monitor for any changes. I reassessed the patient again at 0030 and she reported she is starting to have itching and sweating again which were the precursors to her developing the swelling of the lips and tongue. She states her tongue and lips feel better currently but she is worried that the swelling is going to come back. I do not appreciate obvious urticaria, however since patient's symptoms are identical to the prodromal symptoms prior to her angioedema development, I am going to treat her for continued reaction. Since patient had itching, it is less likely that this is a bradykinin mediated reaction, so epinephrine is being administered. I did however discuss this patient with on-call pharmacist Leigh Ann and while she agrees it is less likely to be a bradykinin mediated reaction, she did state patient could have another dose of 1 g of TXA 8 hours from the initial dose if needed while hospitalized if still concern for bradykinin reaction. Because patient is having worsening of symptoms and requiring additional interventions, I believe she requires admission for continued monitoring of her reaction, this will also allow the inpatient team to make any necessary medication changes. Patient is in agreement with this plan and comfortable with being admitted. Patient responded well to the epinephrine and is improving. Her hemodynamics remained stable. She is appropriate for admission at this time. I discussed this case with the hospitalist including her recurrence of symptoms as well as recommendations from pharmacy, he graciously excepted the patient for admission. Total time in ED observation: 3 hours 20 minutes Critical Care <Joanna Roca DO - Last Filed: 01/20/24 23:29> Critical Care Time Critical Care Time: No <Narcisa Smith MD - Last Filed: 01/21/24 00:55> Critical Care Time Critical Care Time: Yes Attestation: On 01/20/24, the high probability of a clinically significant, sudden or life threatening deterioration of the following system(s) (cardiac, ariway)required my full and direct attention, intervention and personal management. The time I documented below is in addition to time spent performing reported procedures but includes the following listed in this critical care notation. Total Time Total Critical Care Time: 35
--- NOTE | 2024-01-20 21:13 | ECG_ITS ---
APPROVED REPORT Exam: Resting ECG HR:103 bpm ECG Measurements Heart Rate 103 AXES MD 169 P 60 QRSd 97 QRS 85 QT 372 T 42 QTc 431 Conclusion SINUS TACHYCARDIA POSSIBLE LEFT ATRIAL ENLARGEMENT [-0.1mV P-WAVE IN V1/V2] ABNORMAL RHYTHM ECG Electronically signed by : MILAGROS PAULINO, 01/20/2024 23:37:19
[2024-01-20] MEDS: TRANEXAMIC ACID 1,000 MG/10 ML VIAL 1000 MG IVP (21:14)
[2024-01-20] MEDS: EPINEPHrine 1 MG/ML AMPUL 0.3 MG IM (21:14)
[2024-01-20 21:15] LABS: Basophils # 0.4 K/mm3 (0-0.2); Eosinophils # 0.2 K/mm3 (0.0-0.4); Eosinophils % 1.6 % (0.1-12.0); Hematocrit 48.4 % (37.0-47.0); Hemoglobin 16.1 g/dL (12.2-16.2); Lymphocytes # 5.2 K/mm3 (0.7-4.5); Lymphocytes % 50.7 % (10-50); Mean Corpuscular HGB Conc 33.3 g/dL (31.8-35.4); Mean Corpuscular Hemoglobin 29.7 pg (27.0-31.2); Mean Corpuscular Volume 88.9 fl (81-99); Mean Platelet Volume 7.2 fl (7.4-10.4); Monocytes # 0.6 K/mm3 (0.1-1.0); Monocytes % 5.5 % (1.7-9.3); Neutrophils # 4.3 K/mm3 (1.8-7.8); Neutrophils % 42.2 % (37.0-80.0); Platelet Count 387 K/mm3 (142-424); Red Blood Count 5.44 M/mm3 (4.20-5.40); Red Cell Distribution Width 14.2 % (11.5-17.5); White Blood Count 10.2 K/mm3 (4.8-10.8)
[2024-01-20 21:17] LABS: MANUAL DIFFERENTIAL MANUAL DIFFERENTIAL (MANUAL DIFF)
[2024-01-20 21:20] LABS: Albumin Level 4.3 g/dl (3.5-5.0); Chloride 105 mmol/L (98-107); Potassium 3.7 mmoL/L (3.5-5.1); Sodium 135 mmol/L (136-145)
[2024-01-20 21:23] LABS: Alanine Aminotransferase 43 U/L (12-78); Albumin/Globulin Ratio 1.3 (1.1-1.8); Alkaline Phosphatase 93 U/L (38-126); Anion Gap 16.7 mEq/L (5-15); Aspartate Amino Transferase 31 U/L (14-36); Bilirubin,Total 0.6 mg/dl (0.2-1.3); Blood Urea Nitrogen 16 mg/dl (7-17); Carbon Dioxide 17 mmol/L (22.0-30.0); Creatinine Clearance Estimated 127 mL/min (50-200); Estimated Glomerular Filt Rate 135 ml/min (>60); GFR (African American) 164 ML/MIN (>60); Globulin 3.3 g/dL (1.3-3.2); Total Protein,Serum 7.6 g/dl (6.3-8.2)
[2024-01-20 21:24] LABS: Calcium 9.2 mg/dl (8.4-10.2); Glucose 316 mg/dl (74-100)
[2024-01-20] MEDS: 0.9 % SODIUM CHLORIDE 1000ML 1,000 ML 999 ML IV (21:30)
[2024-01-20 21:31] VITALS: BP 165/99
[2024-01-20 21:32] VITALS: BP 175/93; PULSE 95; RESP 25; O2SAT 95
[2024-01-20 22:01] VITALS: BP 175/87; PULSE 98; RESP 15; O2SAT 95
[2024-01-20] MEDS: EPINEPHRINE 2.25% NEB 0.5ML UD 0.5 ML IH (22:08)
[2024-01-20 22:09] VITALS: PULSE 93
[2024-01-20 22:31] VITALS: BP 156/88; PULSE 98; RESP 18; O2SAT 97
[2024-01-20 22:45] LABS: Eosinophils % 4 % (0-3); Lymphocytes % 48 % (10-50); Monocytes % 6 % (2-9); Neutrophils % 42 % (42-76); Total Cells Counted 100
[2024-01-20 22:47] LABS: Platelet Estimate Normal
[2024-01-20 23:05] LABS: HIV (1&2) Antibody Rapid NONREACTIVE (NONREACTIVE)
--- NOTE | 2024-01-21 00:41 | PC.NURSE ---
speaking with LeighA nn MILLS
[2024-01-21] MEDS: EPINEPHrine 1 MG/ML AMPUL 0.3 MG IM (00:47)
--- NOTE | 2024-01-21 00:51 | PC.NURSE ---
Pt medicated for worsening symptoms per order. Pt ambulatory to the restroom without difficulty Gait steady
--- NOTE | 2024-01-21 01:20 | PC.NURSE ---
Report called to Tereza GARCIA by Eliana GARCIA
[2024-01-21 01:21] VITALS: BP 158/93; PULSE 97; RESP 20; TEMP 36.7; O2SAT 96
--- NOTE | 2024-01-21 01:24 | PC.NURSE ---
floor RN here for patient transfer to room 213 for admission
--- NOTE | 2024-01-21 01:32 | EXP.HP ---
History of Present Illness *Admission Date: 01/21/24 *Reason for visit:: Allergic reaction with angioedema *History of present illness: This 43-year-old female, came to the emergency room after feeling her tongue and lip swelling. She had been eating got choked and then the swelling of the tongue and the face continued., She came to the emergency room where she was treated with multiple medications and the angioedema lip swelling was resolved., After a period of time though she felt it coming back so a second dose of epinephrine was given. This has been successful. I have spoken with the emergency room physician, and due to the patient being on an ARB with angioedema feels that she needs to be an overnight for observation and to be able to receive more epi if the facial and angioedema began again. I do agree with her and will place the patient on the floor for observation to be reevaluated in the morning. Noting the patient history going through the record there has been other times she has come in for hives, 1 of these times it was associated with with eating where she had vomited, but this is the first time she has had angioedema. Patient states her daughter has similar allergy problems and has been worked up by an ingredient mixer but nothing came back positive as a. Trigger. Patient also noted that she is a diabetic and in reviewing her records she has received steroids here recently also for a outbreak of hives. [facility] Disclaimer: The information contained in this section may have been updated after the patient was seen, as this information can be updated by other users. Medical History Flu syndrome Exposure to COVID-19 virus Elbow sprain Neck pain Left shoulder pain Chest pain Ankle sprain Foot sprain Knee pain Abscess of skin or subcutaneous tissue Diabetes mellitus, type 2 Former heavy tobacco smoker Snoring Restless sleeper Gastroesophageal reflux disease Obesity Hypertension Surgical History History of colonoscopy History of hysterectomy History of cholecystectomy Social History (Updated 01/21/24 @ 02:00 by Jennie Reed RN) Smoking Status: Former smoker tobacco type: cigarettes packs per day: 1 smoking status start date: 2002 years smoked: 13 smoking status stop date: 8 years ago alcohol intake: never substance use type: denies use current occupational status: employed Travel in the last 8 weeks: None housing: house current occupation: [employer] caffeine: Yes Other Medical History Have you received the Flu Vaccine for this season: No Have you received the Pneumonia Vaccine: No Review of Systems Review of Systems Review of systems:: pertinent systems reviewed and negative unless documented below Constitutional Constitutional: Reports as per HPI Comments: At present the patient has no swelling to the face or tongue is able to talk without any problems and is in no distress Eyes Eyes: Reports as per HPI ENT Ears, Nose, Mouth, and Throat: Reports as per HPI *Cardiovascular Cardiovascular: Reports as per HPI *Respiratory Respiratory: Reports as per HPI *Gastrointestinal Gastrointestinal: Reports as per HPI *Genitourinary Genitourinary: Reports as per HPI *Musculoskeletal Musculoskeletal: Reports as per HPI Integumentary/Breasts Skin/Breast: Reports as per HPI and Reports lesions (Recently had a small kitten there are several claw grande to abdomen and low) *Neurologic Neurologic: Reports as per HPI Psychiatric Psychiatric: Reports as per HPI Endocrine Endocrine: Reports as per HPI Hematologic/Lymphatic Hematologic/Lymphatic: Reports as per HPI Meds Home Medications and Allergies Home Medications ?Medication ?Instructions ?Recorded ?Confirmed ?Type losartan 50 mg tablet 50 mg PO DAILY 02/19/23 01/21/24 History pantoprazole 40 mg tablet,delayed 40 mg PO DAILY 02/19/23 01/21/24 History release carvedilol 12.5 mg tablet 12.5 mg PO BID 30 days #60 tabs 01/21/24 Rx dapagliflozin propaned 5 2 tab PO DAILY 01/21/24 01/21/24 History mg-metformin ER 1,000 mg tablet, ext rel 24hr (Xigduo XR) diphenhydramine HCl 25 mg capsule 50 mg (2 x 25 mg) PO Q8H #30 caps 01/21/24 Rx epinephrine 0.3 mg/0.3 mL 0.3 mg (0.3 mL) IM Q10M PRN 01/21/24 Rx injection, auto-injector (Auvi-Q) anaphylaxis #2 ea famotidine 20 mg tablet 20 mg PO BID 30 days #60 tabs 01/21/24 Rx loratadine 10 mg tablet (Allergy 10 mg PO DAILY #30 tabs 01/21/24 Rx Relief (loratadine)) mupirocin 2 % topical ointment 1 applic topical TID 10 days #22 01/21/24 Rx grams rosuvastatin 10 mg tablet 10 mg PO HS 01/21/24 01/21/24 History sitagliptin phosphate 100 mg 100 mg PO DAILY 01/21/24 01/21/24 History tablet (Januvia) New Prescriptions to Start Prescriptions: carvedilol Aurelia,Fausto diphenhydramine HCl Fausto Moses epinephrine [Auvi-Q] Fausto Moses famotidine Fausto Moses loratadine [Allergy Relief (loratadine)] Fausto Moses mupirocin Fausto Moses Allergies Allergy/AdvReac Type Severity Reaction Status Date / Time codeine [CODEINE] Allergy Severe S-DIFF. Verified 05/27/23 15:06 BREATHING Exam Data for Last 24 hours Vital signs and Labs for Last 24 Hours: Temp Pulse Resp BP Pulse Ox O2 Del Method 98.0 F 97 H 20 158/93 H 97 Room Air 01/21/24 01:21 01/21/24 01:21 01/21/24 01:21 01/21/24 01:21 01/20/24 22:31 01/21/24 01:21 Laboratory Results - last 24 hr 01/20/24 21:10: WBC 10.2, RBC 5.44 H, Hgb 16.1, Hct 48.4 H, MCV 88.9, MCH 29.7, MCHC 33.3, RDW 14.2, Plt Count 387, MPV 7.2 L, Neut % (Auto) 42.2, Lymph % (Auto) 50.7 H, [place] % (Auto) 5.5, Eos % (Auto) 1.6, Baso % (Auto) 4.0 H, Neut # (Auto) 4.3, Lymph # (Auto) 5.2 H, [place] # (Auto) 0.6, Eos # (Auto) 0.2, Baso # (Auto) 0.4 H, Total Counted 100, Neutrophils % (Manual) 42, Lymphocytes % (Manual) 48, Monocytes % (Manual) 6, Eosinophils % (Manual) 4 H, Platelet Estimate Normal, Sodium 135 L, Potassium 3.7, Chloride 105, Carbon Dioxide 17 L, Anion Gap 16.7 H, BUN 16, Creatinine 0.50 L, Estimated Creat Clear 127, Estimated GFR 135, Est GFR ( Amer) 164, Glucose 316 H, Calcium 9.2, Total Bilirubin 0.6, AST 31, ALT 43, Alkaline Phosphatase 93, Total Protein 7.6, Albumin 4.3, Globulin 3.3 H, Albumin/Globulin Ratio 1.3, HIV 1&2 Antibody Rapid Nonreactive I & O for Last 24 hours: Intake & Output 01/18/24 01/19/24 01/20/24 01/21/24 23:59 23:59 23:59 23:59 Weight 120.202 kg Radiology Reports for the Last 24 Hours: None were done Constitutional Constitutional: no acute distress *Routine HEENT Exam Head: Present normocephalic and atraumatic Eye: Present EOMI and PERRL ENT: Present mucous membranes moist Comments: Examination of the mouth and throat pharynx is normal no signs of swelling tongue is appears to be of normal size, no edema noted *Routine Neck Exam Neck: Present supple and full ROM Routine Chest/Breast/Axilla Exam Comments: During the exam the patient reported to me no signs of discomfort in the chest wall she is able to sit up and no tenderness was found during auscultation of the chest *Routine Respiratory Exam Respiratory: Present CTA bilaterally, normal respiratory effort, able to speak in complete sentences and symmetric chest movement *Routine Cardiovascular Exam Cardiovascular: Present RRR, Normal S1 and Normal S2 *Routine Abdominal Exam Abdominal: Present soft, normoactive bowel sounds and obese *Routine Rectal Exam Rectal:: deferred *Routine Genitalia Exam Genitalia:: deferred *Routine Extremities Exam Comments: Normal exam of all extremities patient is able to walk without assistance also arms have full range of motion, hands equal grasp Routine Back/Spine/Pelvis Exam Back/Spine: Present full ROM *Routine Skin Exam Skin: Present intact, dry, warm, lesions and normal turgor Comments: There are multiple petechiae from pinpoint areas where a kitten's claws as they were climbing on the patient has caused to the abdomen and to the lower extremity, around each scratch raymond is redness some are scabbed over there is no drainage no edema *Routine Neurological Exam Neurological: Present alert, oriented X3, CN II-XII intact, normal reflexes, vision grossly intact, hearing grossly intact and normal speech Routine Psychiatric Exam Psychiatric: Present normal affect, normal thought process, cooperative, good insight and good judgment H&P: Result Impressions 1. Allergic reaction with angioedema transient 2. Skin lesions we related to small kitten claws 3. Diabetic, due to allergic reactions had been receiving steroid 4. Morbid obesity 5. Hypertension treated with an ARB Assessment and Plan *Assessment and plan (1) Angioedema: Status: Acute Qualifiers: Encounter type: initial encounter Qualified Code(s): T78.3XXA - Angioneurotic edema, initial encounter Category: Medical Code(s): T78.3XXA - Angioneurotic edema, initial encounter (2) Urticaria: Status: Acute Category: Medical Code(s): L50.9 - Urticaria, unspecified (3) Hyperglycemia: Status: Acute Category: Medical Code(s): R73.9 - Hyperglycemia, unspecified (4) Morbid obesity with BMI of 45.0-49.9, adult: Status: Acute Category: Medical Code(s): E66.01 - Morbid (severe) obesity due to excess calories; Z68.42 - Body mass index [BMI] 45.0-49.9, adult (5) Hypertension: Status: Chronic Qualifiers: Hypertension type: unspecified Qualified Code(s): I10 - Essential (primary) hypertension Category: Medical Code(s): I10 - Essential (primary) hypertension Plan 1. Allergic reaction with angioedema, after talking with the ER provider. Noting that epinephrine had to use twice as the symptoms returned after resolving after the first time of treatment.. So I do agree with the emergency room provider that is a precaution even though the patient is stable at this point in time that this reaction could return if related to her ARB, so I have excepted the admission and will place her upstairs for observation throughout the night, nursing has been updated on the events in the ER and will be prepared if needed for epinephrine or to start an epi drip and adjust as needed. Patient has received basically max doses of medications for the allergic reaction so we will be watching her till morning and only add other medication as needed. 2. Hypertension due to the above will hold her hypertensive meds at this point in time, I have talked with the patient that on follow-up she will need to get with her primary care to possibly change to a different class of medication to control her blood pressure. 3. Diabetes mellitus, patient is a diabetic but she has been receiving steroids from a previous ER visit for [facility] area approximately 10 days prior to this and now during this visit. So fingerstick blood sugar have been elevated., Will place on ACHS fingersticks and sliding scale. Plan at this time I will order no other labs and this will be observation. Will add labs in the morning if anything else was to change. Hopefully to be able to discharge the patient home in the morning if there is no other indications that this allergic reaction would return. And also to make sure that the patient has a prescription for EpiPen's to be able to keep them at the house since after reviewing all of her old records there has been a few visits to the emergency room for [facility] area but this is the first time that is progressed into angioedema with lip and facial swelling. Rounded on patient after nurse practitioner. Personally examined and interviewed patient. Agree with exam findings and care plan as documented. Remained stable on room air. Responding to antihistamine and steroid regimen. Glucose elevated overnight however due to steroids with glucose greater than 300. White count remained normal. No concern for infection. Kidney function stable with creatinine 0.5. Repeat labs ordered for the morning with CBC, CMP, magnesium.
--- NOTE | 2024-01-21 01:32 | PC.NURSE ---
Patient arrived to floor via wheelchair from ED at 01:29.
[2024-01-21 01:38] VITALS: BP 149/93; PULSE 97; RESP 20; TEMP 37; O2SAT 95; BMI 46.6
[2024-01-21] MEDS: LORATADINE 10MG TABLET 10 MG PO (01:44)
[2024-01-21 04:00] VITALS: BP 163/100; PULSE 96; RESP 16; TEMP 36.6; O2SAT 97; BMI 46.6
[2024-01-21 06:45] LABS: POC Glucose,Bedside 401 (70-110)
[2024-01-21] MEDS: humaLOG 100 UNITS/ML 10ML VIAL (SSI) SUBCUT (06:46)
[2024-01-21] MEDS: IBUPROFEN 400 MG TABLET PO (06:54)
--- NOTE | 2024-01-21 07:07 | PC.NURSE ---
Pt has not had any complaints of itching/tingling/swelling. Pt has rested well throughout shift. Ambulates to BR independently. Call light within reach.
[2024-01-21 08:00] VITALS: BP 166/112; PULSE 95; RESP 19; TEMP 36.6; O2SAT 95
--- NOTE | 2024-01-21 08:03 | HMH.PHAINT1 ---
Pharmacy Intervention Comments: HOME MEDICATIONS VERIFIED FROM OUTPATIENT PHARMACY AND PT INTERVIEW
--- NOTE | 2024-01-21 08:13 | P.DS_ITS ---
General Admission date:: 01/21/24 Discharge date: 01/22/24 HPI HPI HPI: This 43-year-old female, came to the emergency room after feeling her tongue and lip swelling. She had been eating got choked and then the swelling of the tongue and the face continued., She came to the emergency room where she was treated with multiple medications and the angioedema lip swelling was resolved., After a period of time though she felt it coming back so a second dose of epinephrine was given. This has been successful. I have spoken with the emergency room physician, and due to the patient being on an ARB with angioedema feels that she needs to be an overnight for observation and to be able to receive more epi if the facial and angioedema began again. I do agree with her and will place the patient on the floor for observation to be reevaluated in the morning. Noting the patient history going through the record there has been other times she has come in for hives, 1 of these times it was associated with with eating where she had vomited, but this is the first time she has had angioedema. Patient states her daughter has similar allergy problems and has been worked up by an first calender worker but nothing came back positive as a. Trigger. Patient also noted that she is a diabetic and in reviewing her records she has received steroids here recently also for a outbreak of hives. Hospital Course Hospital Course Hospital Course: Ms. Lucero is a 43-year-old female with history of hypertension, diabetes, and obesity. Presented after an episode of choking and concern for swelling of her tongue and mouth giving difficulty breathing and a rash. Happened after eating dinner that her mother made. Patient also takes losartan. Presentation concerning for allergic reaction versus angioedema. Was admitted and monitored overnight. Patient did well with decrease in swelling. Itching rash resolved. Patient stable on room air. Tolerating p.o. intake. She will discharge home with adjustments to her blood pressure regimen. Problems were addressed as follows: Allergic reaction versus angioedema -Presented with swelling of her mouth and difficulty breathing. Developed itchy rash. Was given epinephrine and antihistamines. Overall some improvement. Will discontinue losartan at this time. Initiated on daily long-acting antihistamine with Claritin 10 mg daily. Recommend famotidine 20 mg twice daily. Benadryl as needed. Counseled on 50 mg dose if she has further reactions. Prescribed EpiPen. Given her clinical stability and resolution of rash. Stable to discharge home. No further steroids due to patient's hyperglycemia related to her diabetes secondary to the steroids. Hypertension: On losartan at home, discontinued losartan due to concern for angioedema component. Initiated carvedilol 12 and half milligrams twice daily. Further dose adjustment and management pending follow-up with PCP. Diabetes mellitus -Continue home regimen for diabetes. Glucose is elevated during admission after steroids. No further steroids at discharge. Labs normal on morning of discharge with normal white count, normal kidney function and electrolytes. Of note had a rash on abdomen concerning for scratches from cat. Initiate mupirocin topically for the next 7 to 10 days. Total time spent on discharge 32 minutes in counseling, documentation, chart review, and direct care with patient. Exam Data for Last 24 hours Vital signs and Labs for Last 24 Hours: Temp Pulse Resp BP Pulse Ox O2 Del Method 97.8 F 96 H 16 163/100 H 97 Room Air 01/21/24 04:00 01/21/24 04:00 01/21/24 04:00 01/21/24 04:00 01/21/24 04:00 01/21/24 07:00 Laboratory Results - last 24 hr 01/20/24 21:10: WBC 10.2, RBC 5.44 H, Hgb 16.1, Hct 48.4 H, MCV 88.9, MCH 29.7, MCHC 33.3, RDW 14.2, Plt Count 387, MPV 7.2 L, Neut % (Auto) 42.2, Lymph % (Auto) 50.7 H, [place] % (Auto) 5.5, Eos % (Auto) 1.6, Baso % (Auto) 4.0 H, Neut # (Auto) 4.3, Lymph # (Auto) 5.2 H, [place] # (Auto) 0.6, Eos # (Auto) 0.2, Baso # (Auto) 0.4 H, Total Counted 100, Neutrophils % (Manual) 42, Lymphocytes % (Manual) 48, Monocytes % (Manual) 6, Eosinophils % (Manual) 4 H, Platelet Estimate Normal, Sodium 135 L, Potassium 3.7, Chloride 105, Carbon Dioxide 17 L, Anion Gap 16.7 H, BUN 16, Creatinine 0.50 L, Estimated Creat Clear 127, Estimated GFR 135, Est GFR ( Amer) 164, Glucose 316 H, Calcium 9.2, Total Bilirubin 0.6, AST 31, ALT 43, Alkaline Phosphatase 93, Total Protein 7.6, Albumin 4.3, Globulin 3.3 H, Albumin/Globulin Ratio 1.3, HIV 1&2 Antibody Rapid Nonreactive 01/21/24 06:38: POC Glucose 401 H* I & O for Last 24 hours: Intake & Output 01/18/24 01/19/24 01/20/24 01/21/24 23:59 23:59 23:59 23:59 Output Total 0 / 0 Balance 0 / 0 Weight 120.202 kg 124.012 kg Constitutional Constitutional: no acute distress, morbidly obese and cooperative *Routine HEENT Exam Head: Present normocephalic Eye: Present EOMI and PERRL ENT: Present mucous membranes moist *Routine Neck Exam Neck: Present supple; Absent lymphadenopathy *Routine Respiratory Exam Respiratory: Present CTA bilaterally and stridor; Absent rhonchi, wheezes or crackles *Routine Cardiovascular Exam Cardiovascular: Present RRR *Routine Abdominal Exam Abdominal: Present soft and normoactive bowel sounds; Absent tenderness Comments: scratches on abdomen *Routine Rectal Exam Patient deferred: visual exam *Routine Exam Patient deferred: external exam *Routine Extremities Exam Extremities: Absent cyanosis, clubbing or edema *Routine Skin Exam Skin: Present intact and warm; Absent urticaria or rash Comments: scratches on abdomen *Routine Neurological Exam Neurological: Present alert, oriented X3 and moving all extremities; Absent altered mental status Results Data Completed and Pending Labs on day of discharge: Labs from last 24 hours 01/21/24 01/20/24 06:38 21:10 WBC 10.2 RBC 5.44 H Hgb 16.1 Hct 48.4 H MCV 88.9 MCH 29.7 MCHC 33.3 RDW 14.2 Plt Count 387 MPV 7.2 L Neut % (Auto) 42.2 Lymph % (Auto) 50.7 H [place] % (Auto) 5.5 Eos % (Auto) 1.6 Baso % (Auto) 4.0 H Neut # (Auto) 4.3 Lymph # (Auto) 5.2 H [place] # (Auto) 0.6 Eos # (Auto) 0.2 Baso # (Auto) 0.4 H Total Counted 100 Neutrophils % (Manual) 42 Lymphocytes % (Manual) 48 Monocytes % (Manual) 6 Eosinophils % (Manual) 4 H Platelet Estimate Normal Sodium 135 L Potassium 3.7 Chloride 105 Carbon Dioxide 17 L Anion Gap 16.7 H BUN 16 Creatinine 0.50 L Estimated Creat Clear 127 Estimated GFR 135 Est GFR ( Amer) 164 Glucose 316 H POC Glucose 401 H* Calcium 9.2 Total Bilirubin 0.6 AST 31 ALT 43 Alkaline Phosphatase 93 Total Protein 7.6 Albumin 4.3 Globulin 3.3 H Albumin/Globulin Ratio 1.3 HIV 1&2 Antibody Rapid Nonreactive DS: Diagnosis Discharge Diagnosis (1) Angioedema: Status: Acute Code(s): T78.3XXA - Angioneurotic edema, initial encounter Qualifiers: Encounter type: initial encounter Qualified Code(s): T78.3XXA - Angioneurotic edema, initial encounter (2) Urticaria: Status: Acute Code(s): L50.9 - Urticaria, unspecified (3) Hyperglycemia: Status: Acute Code(s): R73.9 - Hyperglycemia, unspecified (4) Morbid obesity with BMI of 45.0-49.9, adult: Status: Acute Code(s): E66.01 - Morbid (severe) obesity due to excess calories; Z68.42 - Body mass index [BMI] 45.0-49.9, adult (5) Hypertension: Status: Chronic Code(s): I10 - Essential (primary) hypertension Qualifiers: Hypertension type: unspecified Qualified Code(s): I10 - Essential (felicita jose) hypertension Meds Home Medications and Allergies Home Medications ?Medication ?Instructions ?Recorded ?Confirmed ?Type losartan 50 mg tablet 50 mg PO DAILY 02/19/23 01/21/24 History pantoprazole 40 mg tablet,delayed 40 mg PO DAILY 02/19/23 01/21/24 History release carvedilol 12.5 mg tablet 12.5 mg PO BID 30 days #60 tabs 01/21/24 Rx dapagliflozin propaned 5 2 tab PO DAILY 01/21/24 01/21/24 History mg-metformin ER 1,000 mg tablet, ext rel 24hr (Xigduo XR) diphenhydramine HCl 25 mg capsule 50 mg (2 x 25 mg) PO Q8H #30 caps 01/21/24 Rx epinephrine 0.3 mg/0.3 mL 0.3 mg (0.3 mL) IM Q10M PRN 01/21/24 Rx injection, auto-injector (Auvi-Q) anaphylaxis #2 ea famotidine 20 mg tablet 20 mg PO BID 30 days #60 tabs 01/21/24 Rx loratadine 10 mg tablet (Allergy 10 mg PO DAILY #30 tabs 01/21/24 Rx Relief (loratadine)) mupirocin 2 % topical ointment 1 applic topical TID 10 days #22 01/21/24 Rx grams rosuvastatin 10 mg tablet 10 mg PO HS 01/21/24 01/21/24 History sitagliptin phosphate 100 mg 100 mg PO DAILY 01/21/24 01/21/24 History tablet (Januvia) New Prescriptions to Start Prescriptions: carvedilol Fausto Moses diphenhydramine HCl Fausto Moses epinephrine [Auvi-Q] Fausto Moses famotidine Fausto Moses loratadine [Allergy Relief (loratadine)] Fausto Moses mupirocin Fausto Moses Allergies Allergy/AdvReac Type Severity Reaction Status Date / Time codeine [CODEINE] Allergy Severe S-DIFF. Verified 05/27/23 15:06 BREATHING Discharge Plan Disposition Patient Disposition: Home, Self-Care Condition: Good Follow up Plan Follow up with: Casandra Oates APRN [Primary Care Provider] - 01/24/24 11:45 am Prescriptions/Medication Reconciliation: New famotidine 20 mg Tablet 20 mg PO BID 30 Days Qty: 60 0RF diphenhydramine HCl 25 mg Capsule 50 mg PO Q8H Qty: 30 0RF epinephrine [Auvi-Q] 0.3 mg/0.3 mL auto-injector 0.3 mg IM Q10M PRN (Reason: anaphylaxis) Qty: 2 0RF Rx Instructions: for 2 doses loratadine [Allergy Relief (loratadine)] 10 mg tablet 10 mg PO DAILY Qty: 30 0RF mupirocin 2 % ointment 1 applic topical TID 10 Days Qty: 22 0RF carvedilol 12.5 mg Tablet 12.5 mg PO BID 30 Days Qty: 60 0RF Continued pantoprazole 40 mg tablet,delayed release (DR/EC) 40 mg PO DAILY Patient Comments: TAKE ONE TABLET BY MOUTH EVERY DAY Januvia 100 mg tablet 100 mg PO DAILY Patient Comments: TAKE ONE TABLET BY MOUTH EVERY DAY rosuvastatin 10 mg tablet 10 mg PO HS Patient Comments: TAKE ONE TABLET BY MOUTH EVERY DAY dapaglifloz propaned-metformin [Xigduo XR] 5-1,000 mg tablet, IR - ER, biphasic 24hr 2 tab PO DAILY Patient Comments: TAKE TWO TABLETS BY MOUTH EVERY DAY IN THE MORNING Held losartan 50 mg tablet 50 mg PO DAILY Hold Instructions: hold pending follow-up with PCP and eval of BP along with discussion of angioedema Patient Comments: TAKE ONE TABLET BY MOUTH EVERY DAY Problem Reconciliation Problems Reviewed?: Yes Patient Discharge Instructions ACTIVITY: Continue current activity DIET: continue same diet Patient Instructions: DI for Angioedema Print Language: Citizen Of [place] Providers Primary Care Provider: Casandra Oates Admit Provider: Fausto Moses Attending Provider: Fausto Moses
[2024-01-21] MEDS: FAMOTIDINE 20MG TABLET 40 MG PO (08:14)
[2024-01-21] MEDS: diphenhydrAMINE 25MG CAPSULE 25 MG PO (08:14)
[2024-01-21] MEDS: SITAGLIPTIN 50MG TABLET 100 MG PO (08:17)
[2024-01-21] MEDS: CARVEDILOL 12.5MG TABLET 12.5 MG PO (09:52)
[2024-01-22 09:22] LABS: HCV Ab Non Reactive (Non Reactive)
--- NOTE | 2024-01-22 15:32 | SW/DCPLANNER ---
Hospital follow up phone call: patient stated that she is doing well at home. Patient was able to waste picker her new medications and will be following up w/ Johanna Oates on 01/24/24. Patient did not have any further questions/needs at this time.
== END 2024-01-21 12:55 | disposition home or self-care (01) ==
LOC: ER 01-21 00:55 → 2ND 01-21 01:23
PROVIDERS: Admitting Provider Internal Medicine Adolescent Medicine; Emergency Provider Emergency Medicine; PCP Nurse Practitioner Family; Visit Provider Internal Medicine Adolescent Medicine
DX: T78.3XXA Angioneurotic edema, initial encounter (principal); I10 Essential (primary) hypertension; E78.5 Hyperlipidemia, unspecified; E66.01 Morbid (severe) obesity due to excess calories; Z68.42 Body mass index [BMI] 45.0-49.9, adult; R06.02 Shortness of breath; T78.40XA Allergy, unspecified, initial encounter; T38.0X5A Adverse effect of glucocorticoids and synthetic analogues, initial encounter; E11.65 Type 2 diabetes mellitus with hyperglycemia; Z79.84 Long term (current) use of oral hypoglycemic drugs
CPT/HCPCS: 80053; 82962; 85007; 85025; 85027; 86803; 87389; 93005; 99291; G0378; J0171; J1200; J2919; J7030; S0028

== ENCOUNTER 2024-04-15 20:47 | Emergency (ER) | payer BC, OTHER, SELFPAY ==
[2024-04-15 20:48] VITALS: BP 166/101; PULSE 95; RESP 18; TEMP 36.7; O2SAT 98; BMI 46.1
--- NOTE | 2024-04-15 21:24 | HMH.EDGENADL ---
Discharge Plan Disposition Chief Complaint: Neck Pain/Injury Prescriptions Prescriptions: New cyclobenzaprine 10 mg tablet 10 mg PO TID PRN (Reason: muscle spasm) 5 Days Qty: 15 0RF lidocaine 4 % adhesive patch,medicated 1 patch topical DAILY Qty: 5 0RF Rx Instructions: may leave on for up to 12 hrs ibuprofen 800 mg tablet 800 mg PO TID PRN (Reason: pain) 7 Days Qty: 20 0RF prednisone 50 mg tablet 50 mg PO DAILY 5 Days Qty: 5 0RF Rx Instructions: Please begin 1 day after ED visit No Action losartan 50 mg tablet 50 mg PO DAILY Patient Comments: TAKE ONE TABLET BY MOUTH EVERY DAY pantoprazole 40 mg tablet,delayed release (DR/EC) 40 mg PO DAILY Patient Comments: TAKE ONE TABLET BY MOUTH EVERY DAY Januvia 100 mg tablet 100 mg PO DAILY Patient Comments: TAKE ONE TABLET BY MOUTH EVERY DAY rosuvastatin 10 mg tablet 10 mg PO HS Patient Comments: TAKE ONE TABLET BY MOUTH EVERY DAY dapaglifloz propaned-metformin [Xigduo XR] 5-1,000 mg tablet, IR - ER, biphasic 24hr 2 tab PO DAILY Patient Comments: TAKE TWO TABLETS BY MOUTH EVERY DAY IN THE MORNING famotidine 20 mg Tablet 20 mg PO BID 30 Days Qty: 60 0RF diphenhydramine HCl 25 mg Capsule 50 mg PO Q8H Qty: 30 0RF epinephrine [Auvi-Q] 0.3 mg/0.3 mL auto-injector 0.3 mg IM Q10M PRN (Reason: anaphylaxis) Qty: 2 0RF Rx Instructions: for 2 doses loratadine [Allergy Relief (loratadine)] 10 mg tablet 10 mg PO DAILY Qty: 30 0RF mupirocin 2 % ointment 1 applic topical TID 10 Days Qty: 22 0RF carvedilol 12.5 mg Tablet 12.5 mg PO BID 30 Days Qty: 60 0RF Referrals Follow up/Referrals: Casandra Oates APRN [Primary Care Provider] - See instructions Activity Restrictions/Add. Instructions Additional Instructions/Restrictions: No acute emergency that would require neurosurgical intervention or other emergent imaging or treatment. Please follow back up with your spine surgeon as discussed return with any significant weakness in your left upper extremity or other concerns peer Clinical Impressions Clinical Impression: Chronic neck pain Instructions Patient Instructions: DI for Neck Pain Print Language Print Language: Spanish Discharge ED Provider: Edmundo Ball General Adult HPI General Chief complaint: Neck Pain/Injury Stated complaint: neck pain Time Seen by Provider: 04/15/24 21:15 Mode of Arrival: Ambulatory Source of Information: Patient Limitations: No Limitations Description of Symptoms (Recalled from ER Triage Doc. by RN): Pt presents to ED for neck pain, NKI. Pt states she has chronic neck pain but this is different. Pt is A&O*4 and rates pain 8/10 at this time. History of Present Illness HPI narrative: 43-year-old presents today with chronic neck pain that she states has worsened over the last several weeks. States she has had this for 2 years she is actually seen a spine surgeon and has had an MRI she states and has been diagnosed with degenerative disc disease. States that she has pain this off the paraspinal area over the left and in her trapezius region with some radiation into her left upper extremity. She denies any acute weakness any significant injuries denies any fevers or chills denies any midline pain. Related Data Home Medications ?Medication ?Instructions ?Recorded ?Confirmed losartan 50 mg tablet 50 mg PO DAILY 02/19/23 01/21/24 pantoprazole 40 mg tablet,delayed 40 mg PO DAILY 02/19/23 01/21/24 release dapagliflozin propaned 5 2 tab PO DAILY 01/21/24 01/21/24 mg-metformin ER 1,000 mg tablet, ext rel 24hr (Xigduo XR) rosuvastatin 10 mg tablet 10 mg PO HS 01/21/24 01/21/24 sitagliptin phosphate 100 mg 100 mg PO DAILY 01/21/24 01/21/24 tablet (Januvia) Previous Rx's ?Medication ?Instructions ?Recorded carvedilol 12.5 mg tablet 12.5 mg PO BID 30 days #60 tabs 01/21/24 diphenhydramine HCl 25 mg capsule 50 mg (2 x 25 mg) PO Q8H #30 caps 01/21/24 epinephrine 0.3 mg/0.3 mL 0.3 mg (0.3 mL) IM Q10M PRN 01/21/24 injection, auto-injector (Auvi-Q) anaphylaxis #2 ea famotidine 20 mg tablet 20 mg PO BID 30 days #60 tabs 01/21/24 loratadine 10 mg tablet (Allergy 10 mg PO DAILY #30 tabs 01/21/24 Relief (loratadine)) mupirocin 2 % topical ointment 1 applic topical TID 10 days #22 01/21/24 grams cyclobenzaprine 10 mg tablet 10 mg PO TID PRN muscle spasm 5 04/15/24 days #15 tabs ibuprofen 800 mg tablet 800 mg PO TID PRN pain 7 days #20 04/15/24 tabs lidocaine 4 % topical patch 1 patch topical DAILY #5 ea 04/15/24 prednisone 50 mg tablet 50 mg PO DAILY 5 days #5 tabs 04/15/24 Allergies Allergy/AdvReac Type Severity Reaction Status Date / Time codeine (CODEINE) Allergy Severe S-DIFF. Verified 05/27/23 15:06 BREATHING [facility] Disclaimer: The information contained in this section may have been updated after the patient was seen, as this information can be updated by other users. Medical History (Updated 04/15/24 @ 21:21 by Edmundo Ball MD) Strain of right knee Internal derangement of right knee Radiculopathy Non compliance with medical treatment Flu syndrome Exposure to COVID-19 virus Elbow sprain Neck pain Left shoulder pain Chest pain Ankle sprain Foot sprain Knee pain Abscess of skin or subcutaneous tissue Diabetes mellitus, type 2 Former heavy tobacco smoker Snoring Restless sleeper Gastroesophageal reflux disease Obesity Hypertension Surgical History History of colonoscopy History of hysterectomy History of cholecystectomy Social History (Updated 01/21/24 @ 02:00 by Jennie Reed RN) Smoking Status: Unknown if ever smoked smoking status start date: 2002 smoked: 13 smoking status stop date: 8 years ago alcohol intake: never substance use type: denies use current occupational status: employed Travel in the last 8 weeks: None housing: house current occupation: [employer] caffeine: Yes Have you lived/traveled outside [place] in past 30 days?: No Contact w/someone who lives/traveled outside [place] past 30 days?: No Exposure to someone with infectious disease in past 14 days?: No Do you have a fever (greater than 100.4 F or 38 C)?: No Have you tested positive for COVID-19: No Exposed to someone with COVID-19 in past 14 days?: No Do you have a sore throat?: No Do you have a cough?: No Do you have any weakness?: No Do you have any diarrhea?: No Are you experiencing any unusual bleeding?: No Do you have any muscle aches/pain?: Yes Do you have any abdominal pain?: No Are you experiencing loss of taste or smell?: No Other Medical History Have you received the Flu Vaccine for this season: No Have you received the Pneumonia Vaccine: No ROS Obtained: Yes All systems reviewed & no additional complaints except as documented Physical Exam General General appearance: alert Neck Neck exam: Absent tenderness (No midline spinal tenderness there is paraspinal muscular tenderness that extends into the trapezius region left upper extremity she has normal neurovascular exam in the left upper extremity) Respiratory Respiratory exam: Present normal lung sounds bilaterally Cardiovascular Cardiovascular exam: Present regular rate Neurological Exam Neurological exam: Present alert and oriented X3 Medical Decision Making Medical Records Screening: Per USPSTF and CDC recommendations, given the prevalence of disease in our region, it is our hospital?s policy to screen for HIV and viral Hepatitis for all patients aged 18 and over and those with ongoing risk factors. Ever Inquiry Pt receiving controlled substance: No Vital Signs: 04/15/24 20:48 Temperature 98.1 F Temperature Source Oral Pulse Rate [Left] 95 H Respiratory Rate 18 Blood Pressure [Right Arm] 166/101 H Blood Pressure Mean [Right Arm] 122 02 Sat by Pulse Oximetry 98 Oxygen Delivery Method Room Air Orders (Tests/Meds): ED MEDICATIONS Generic Name Dose Route Start Last Admin Trade Name Franca PRN Reason Stop Dose Admin Cyclobenzaprine HCl 5 mg 04/15/24 21:21 Cyclobenzaprine 10mg Tablet PO 04/15/24 21:22 ONCE ONE Ketorolac Tromethamine 30 mg 04/15/24 21:21 Ketorolac 30mg/Ml Vial IM 04/15/24 21:22 ONCE ONE Lidocaine 1 each 04/15/24 21:21 Lidocaine 5% Transdermal Patch TP 04/15/24 21:22 ONCE ONE Prednisone 60 mg 04/15/24 21:21 Prednisone 20mg Tab PO 04/15/24 21:22 ONCE ONE Medical Decision Narrative: 43-year-old presents today with 2 years of chronic neck pain that has worsened over the last several weeks. She has no signs or symptoms of significant DISH CARRIER or spinal cord compression. She has no midline pain no injuries to warrant any emergent imaging right now. She has been given symptomatic medications and prescription to go home with advised that this is likely not can be curative and that she will need to follow-up again with her spine surgeon to discuss further treatment options Critical Care Critical Care Time Critical Care Time: No
[2024-04-15] MEDS: KETOROLAC 30MG/ML VIAL 30 MG IM (21:28)
[2024-04-15] MEDS: predniSONE 20MG TAB 60 MG PO (21:28)
[2024-04-15] MEDS: CYCLOBENZAPRINE 10MG TABLET 5 MG PO (21:28)
[2024-04-15] MEDS: LIDOCAINE 5% TRANSDERMAL PATCH 1 EACH TP (21:28)
[2024-04-15 21:38] VITALS: BP 184/95; PULSE 92; RESP 16; TEMP 36.7; O2SAT 98
== END 2024-04-15 21:39 | disposition home or self-care (01) ==
PROVIDERS: Emergency Provider Student in an Organized Health Care Education/Training Program; PCP Nurse Practitioner Family
DX: M54.2 Cervicalgia (principal); G89.29 Other chronic pain
CPT/HCPCS: 99283; J1885

== ENCOUNTER 2024-04-24 16:26 | Outpatient (CLI) | payer BC, OTHER, SELFPAY ==
--- NOTE | 2024-04-24 16:37 | XR_ITS ---
PROCEDURE INFORMATION: Exam: XR Right Knee Exam date and time: 04/24/2024 4:38 PM Age: 43 years old Clinical indication: Pain; Knee; Right; Additional info: R knee pain TECHNIQUE: Imaging protocol: Radiologic exam of the right knee. Views: 3 views. Total images: 3 COMPARISON: MR KNEE RT WO CON 05/12/2022 1:08 PM FINDINGS: Bones/joints: There are mild degenerative changes of the knee joint, predominantly involving the medial joint compartment. No evidence of acute fracture or dislocation. Small suprapatellar joint effusion. Soft tissues: Soft tissues are within normal limits. IMPRESSION: 1. There are mild degenerative changes of the knee joint, predominantly involving the medial joint compartment. 2. No evidence of acute fracture or dislocation. 3. Small suprapatellar joint effusion.
== END 2024-04-24 23:59 | disposition home or self-care (01) ==
LOC: RAD 16:27
PROVIDERS: PCP Nurse Practitioner Family; Visit Provider Student in an Organized Health Care Education/Training Program
DX: M25.561 Pain in right knee (principal)
CPT/HCPCS: 73562

== ENCOUNTER 2024-05-16 17:36 | Outpatient (CLI) | payer BC, OTHER, SELFPAY ==
[2024-05-16 18:00] LABS: Basophils # 0.1 K/mm3 (0-0.2); Eosinophils # 0.2 K/mm3 (0.0-0.4); Mean Platelet Volume 9.3 fl (7.4-10.4); Monocytes # 0.8 K/mm3 (0.1-1.0)
[2024-05-16 18:04] LABS: Basophils % 0.5 % (0.1-2.0); Neutrophils % 54.8 % (37.0-80.0); Red Cell Distribution Width 13.2 % (11.5-17.5)
[2024-05-16 18:11] LABS: Eosinophils % 1.8 % (0.1-12.0); Hemoglobin 15.2 g/dL (12.2-16.2); Lymphocytes # 3.2 K/mm3 (0.7-4.5); Lymphocytes % 33.6 % (10-50); Mean Corpuscular HGB Conc 33.8 g/dL (31.8-35.4); Mean Corpuscular Hemoglobin 29.7 pg (27.0-31.2); Mean Corpuscular Volume 87.9 fl (81-99); Monocytes % 8.9 % (1.7-9.3); Neutrophils # 5.2 K/mm3 (1.8-7.8); Platelet Count 392 K/mm3 (142-424); Red Blood Count 5.12 M/mm3 (4.20-5.40); White Blood Count 9.5 K/mm3 (4.8-10.8)
[2024-05-16 18:20] LABS: Albumin Level 4.4 g/dl (3.5-5.0); Chloride 109 mmol/L (98-107); Potassium 4.2 mmoL/L (3.5-5.1); Sodium 137 mmol/L (136-145)
[2024-05-16 18:23] LABS: Alanine Aminotransferase 63 U/L (12-78); Albumin/Globulin Ratio 1.9 (1.1-1.8); Alkaline Phosphatase 86 U/L (38-126); Amylase 44 U/L (30-110); Anion Gap 10.2 mEq/L (5-15); Aspartate Amino Transferase 60 U/L (14-36); Bilirubin,Total 0.4 mg/dl (0.2-1.3); Blood Urea Nitrogen 6 mg/dl (7-17); Calcium 9.4 mg/dl (8.4-10.2); Carbon Dioxide 22 mmol/L (22.0-30.0); Estimated Glomerular Filt Rate 135 ml/min (>60); GFR (African American) 164 ML/MIN (>60); Globulin 2.3 g/dL (1.3-3.2); Glucose 186 mg/dl (74-100); Lipase 79 U/L (23-300); Total Protein,Serum 6.7 g/dl (6.3-8.2)
== END 2024-05-16 23:59 | disposition home or self-care (01) ==
LOC: LAB.DROPOF 17:39
PROVIDERS: PCP Physician Assistant; Visit Provider Physician Assistant
DX: R10.13 Epigastric pain (principal); I10 Essential (primary) hypertension; E78.2 Mixed hyperlipidemia; R04.0 Epistaxis
CPT/HCPCS: 80053; 82150; 83690; 85025

== ENCOUNTER 2024-05-27 09:13 | Outpatient (CLI) | payer BC, OTHER, SELFPAY ==
--- NOTE | 2024-05-27 09:15 | US_ITS ---
FINAL REPORT TECHNIQUE: Ultrasound images through the abdomen were obtained. CLINICAL HISTORY: .eval liver COMPARISON: 07/10/2023 FINDINGS: There is diffuse fatty infiltration of the liver without obvious liver mass. Pancreas is obscured. Patient is status postcholecystectomy. There is no biliary ductal dilatation. There is no ascites seen. IMPRESSION: Patient of fatty infiltration of the liver without obvious liver mass. Reviewed, Interpreted and Dictated by Linwood Vigil MD Transcribed by Gay Ogden Authenticated and [facility]
== END 2024-05-27 23:59 | disposition home or self-care (01) ==
LOC: RAD 09:14
PROVIDERS: PCP Physician Assistant; Visit Provider Nurse Practitioner Family
DX: R10.13 Epigastric pain (principal); R74.8 Abnormal levels of other serum enzymes
CPT/HCPCS: 76700

== ENCOUNTER 2024-06-23 17:03 | Outpatient (CLI) | payer BC, OTHER, SELFPAY ==
--- NOTE | 2024-06-23 17:05 | MM_ITS ---
PROCEDURE INFORMATION: Exam: MG Bilateral Screening 3D Mammography Exam date and time: 06/23/2024 5:11 PM Age: 43 years old Clinical indication: Screening examination TECHNIQUE: Imaging protocol: Bilateral Screening tomosynthesis and 2D mammography including computer-aided detection (CAD) when performed. COMPARISON: 1. MG MM DIG SCREENING MAMM BI W/CAD 06/12/2023 4:51 PM 2. MG MAMMOGRAPHY BREAST DIAGNOSTIC TOMOSYNTHESIS BILATERAL 04/24/2022 9:47 AM FINDINGS: MAMMOGRAPHY: Breast composition: There are scattered areas of fibroglandular density. Mass: None. Architectural distortion: None. Calcifications: No suspicious calcifications. Asymmetric density: None. Skin thickening: None. Axillary adenopathy: None. IMPRESSION: No mammographic evidence of malignancy. Annual screening is recommended unless otherwise clinically indicated. ASSESSMENT: BI-RADS Category 1: Negative.
--- OUTSIDE RECORDS SUMMARY | 2024-06-23 17:05 | XMS_ITS | Data Portability ---
Author Organization [facility] [place] & BERENICE Lance ADMIN Address [address] [place] [id number] Assessment Encounter Date Assessment Date Assessment LastModified by Organization Details LastModified Time 07/03/2023 07/03/2023 42-year-old female with hepatomegaly found on CT scan and history of elevated liver enzymes: -Will obtain lab workup per below to rule out hepatitis, autoimmune, or hereditary/meta bolic causes. - Will order liver ultrasound at [facility] - Unable to perform CHANDRA Fibrosure test today as patient is not fasting. Patient wishes to get lab drawn at next appointment. -Dapagliflozin liver toxicity likelihood score: D (possible rare cause of clinically apparent liver injury) on LiverTox -Diet and exercise counseled -Continue to avoid alcohol -Avoid NSAIDs, can take up to 4gm of Tylenol if needed 6 week f/u [email or web address] Not available 07/03/2023 22:55:40 Plan of Treatment Reminders Order Date Submit Date Provider Last Modified By Organization Details Last Modified Time Details Appointments None recorded. Lab hepatic function panel, serum 2023 024 acaldwell 64 [facility], [address], [address], [place], [address], 4 08:39:47 hepatitis panel (A+B+C), acute, serum 2023 024 acaldwell 64 [facility], [address], [address], [place], [address], 4 08:39:47 hepatitis B surface Ab, quantitativ e, serum 2023 024 acaldwell 64 [facility], [address], [address], [place], [address], 4 08:39:47 hepatitis A virus Ab, qualitative , immunoassay , serum 2023 024 acaldwell 64 [facility], [address], [address] [address], [place], [address], 4 08:39:47 igg, quantitativ e, serum 2023 024 acaldwell 64 [facility], [address], [address], [place], [address], 4 08:39:47 mitochondri al M2 igg Ab, serum 2023 024 acaldwell 64 [facility], [address], [facility] [address], [place], [address], 4 08:39:48 actin smooth muscle IgG Ab, quant, serum 2023 024 acaldwell 64 [facility], [address], [address] [address], [place], [address], 4 08:39:48 GYALE (antinuclea r antibodies) screen, serum 2023 024 acaldwell 64 [facility], [address], [facility] [address], [place], [address], 4 08:39:48 HFE gene mutation analysis, blood or tissue 2023 024 acaldwell 64 [facility], [address], [address], [place], [address], 4 08:39:48 iron + total iron-bindin g capacity (TIBC), serum 2023 024 acaldwell 64 [facility], [address], [address], [place], [address], 4 08:39:48 ferritin, serum or plasma 2023 024 acaldwell 64 [facility], [address], [address], [place], [address], 4 08:39:48 ceruloplasm in, serum 2023 024 acaldwell 64 [facility], [address], [address], [place], [address], 4 08:39:48 liver kidney microsomal 1 Ab, quant, serum 2023 024 acaldwell 64 [facility], [address], [address], [place], [address], 4 08:39:49 alpha-1-ant itrypsin (aat), QN, serum 2023 024 acaldwell 64 [facility], [address], [address], [place], [address], 4 08:39:49 alpha-1-ant itrypsin (aat), QN, serum 2023 024 acaldwell 64 [facility], [address], [address], [place], [address], 4 08:39:49 CBC w/ auto diff 2023 024 acaldwell 64 [facility], [address], [address], [place], [address], 4 08:39:49 PT/INR 2023 024 acaldwell 64 [facility], [address], [address], [place], [address], 4 08:39:49 Referral None recorded. Procedures None recorded. Surgeries None recorded. Imaging US, liver 2023 024 [facility] ([facility]), [address], [place], [address], 4 14:27:50 Medication Orders None recorded. Patient TargetsNo targets recorded. Patient InstructionsNo instructions recorded. Reason for Referral None Reported. Results Created Date Observation Date Name Description Value Unit Range Abnormal Flag Note LastModifiedBy Organization Detail LastModifiedTime 07/03/1907/04/2023 CBC WITH DIFFE RENTI AL/PL ATELE T WBC 9.5 x10e3 /uL 3.4-10 .8 Not Available [facility] ([facility]) [address] [facility], [place], [address], 07/25/2023 16:14:21 07/03/19 24 07/04/2023 CBC WITH DIFFE RENTI AL/PL ATELE T RBC 5.12 x10e6 /uL 3.77-5 .28 Not Available [facility] ([facility]) [address] [facility], [place], [address], 07/25/2023 16:14:21 07/03/19 24 07/04/2023 CBC WITH DIFFE RENTI AL/PL ATELE T hemoglobin 15.3 g/dL 11.1-1 5.9 Not Available [facility] ([facility]) [address] [facility], [place], [address], 07/25/2023 16:14:21 07/03/19 24 07/04/2023 CBC WITH DIFFE RENTI AL/PL ATELE T hematocrit 44.9 % 34.0-4 6.6 Not Available [facility] ([facility]) [address] [facility], [place], [address], 07/25/2023 16:14:21 07/03/19 24 07/04/2023 CBC WITH DIFFE RENTI AL/PL ATELE T MCV 88 fL 79-97 Not Available [facility] ([facility]) [address] [facility], [place], [address], 07/25/2023 16:14:21 07/03/19 24 07/04/2023 CBC WITH DIFFE RENTI AL/PL ATELE T MCH 29.9 pg 26.6-3 3.0 Not Available [facility] ([facility]) [address] [facility], [place], [address], 07/25/2023 16:14:21 07/03/19 24 07/04/2023 CBC WITH DIFFE RENTI AL/PL ATELE T MCHC 34.1 g/dL 31.5-3 5.7 Not Available [facility] ([facility]) [address] [facility], [place], [address], 07/25/2023 16:14:21 07/03/19 24 07/04/2023 CBC WITH DIFFE RENTI AL/PL ATELE T RDW 12.8 % 11.7-1 5.4 Not Available [facility] ([facility]) [address] [facility], [place], [address], 07/25/2023 16:14:21 07/03/19 24 07/04/2023 CBC WITH DIFFE RENTI AL/PL ATELE T platelets 402 x10e3 /uL 150-45 0 Not Available [facility] ([facility]) [address] [facility], [place], [address], 07/25/2023 16:14:21 07/03/19 24 07/04/2023 CBC WITH DIFFE RENTI AL/PL ATELE T neutrophils 60 % not estab. Not Available [facility] ([facility]) [address] [facility], [place], [address], 07/25/2023 16:14:21 07/03/19 24 07/04/2023 CBC WITH DIFFE RENTI AL/PL ATELE T lymphs 32 % not estab. Not Available [facility] ([facility]) [address] [facility], [place], [address], 07/25/2023 16:14:21 07/03/19 24 07/04/2023 CBC WITH DIFFE RENTI AL/PL ATELE T monocytes 7 % not estab. Not Available [facility] ([facility]) [address] [facility], [place], [address], 07/25/2023 16:14:21 07/03/19 24 07/04/2023 CBC WITH DIFFE RENTI AL/PL ATELE T eos 1 % not estab. Not Available [facility] ([facility]) [address] [facility], [place], [address], 07/25/2023 16:14:21 07/03/19 24 07/04/2023 CBC WITH DIFFE RENTI AL/PL ATELE T basos 0 % not estab. Not Available [facility] ([facility]) [address] [facility], [place], [address], 07/25/2023 16:14:21 07/03/19 24 07/04/2023 CBC WITH DIFFE RENTI AL/PL ATELE T immature cells GENERATOR TECHNICIAN Not Available [facility] ([facility]) [address] [facility], [place], [address], 07/25/2023 16:14:21 07/03/19 24 07/04/2023 CBC WITH DIFFE RENTI AL/PL ATELE T neutrophils (absolute) 5.5 x10e3 /uL 1.4-7. 0 Not Available [facility] ([facility]) [address] [place], [address], 07/25/2023 16:14:21 07/03/19 24 07/04/2023 CBC WITH DIFFE RENTI AL/PL ATELE T lymphs (absolute) 3.1 x10e3 /uL 0.7-3. 1 Not Available [facility] ([facility]) [address] [facility], [place], [address], 07/25/2023 16:14:21 07/03/19 24 07/04/2023 CBC WITH DIFFE RENTI AL/PL ATELE T monocytes(ab solute) 0.7 x10e3 /uL 0.1-0. 9 Not Available [facility] ([facility]) [address] [facility], [place], [address], 07/25/2023 16:14:21 07/03/19 24 07/04/2023 CBC WITH DIFFE RENTI AL/PL ATELE T eos (absolute) 0.1 x10e3 /uL 0.0-0. 4 Not Available [facility] ([facility]) [address] [facility], [place], [address], 07/25/2023 16:14:21 07/03/19 24 07/04/2023 CBC WITH DIFFE RENTI AL/PL ATELE T baso (absolute) 0.0 x10e3 /uL 0.0-0. 2 Not Available [facility] ([facility]) [address] [facility], [place], [address], 07/25/2023 16:14:21 07/03/19 24 07/04/2023 CBC WITH DIFFE RENTI AL/PL ATELE T immature granulocytes 0 % not estab. Not Available [facility] ([facility]) [address] [facility], [place], [address], 07/25/2023 16:14:21 07/03/19 24 07/04/2023 CBC WITH DIFFE RENTI AL/PL ATELE T immature grans (abs) 0.0 x10e3 /uL 0.0-0. 1 Not Available [facility] ([facility]) [address] [facility], [place], [address], 07/25/2023 16:14:21 07/03/19 24 07/04/2023 CBC WITH DIFFE RENTI AL/PL ATELE T NRBC GENERATOR TECHNICIAN Not Available [facility] ([facility]) [address] [facility], [place], [address], 07/25/2023 16:14:21 07/03/19 24 07/04/2023 CBC WITH DIFFE RENTI AL/PL ATELE T hematology comments: GENERATOR TECHNICIAN Not Available [facility] ([facility]) [address] [facility], [place], [address], 07/25/2023 16:14:21 07/03/19 24 07/05/2023 HEPAT IC FUNCT ION PANEL (7) protein, total 6.5 g/dL 6.0-8. 5 Not Available [facility] ([facility]) [address] [facility], [place], [address], 07/25/2023 16:14:23 07/03/19 24 07/05/2023 HEPAT IC FUNCT ION PANEL (7) albumin 4.1 g/dL 3.9-4. 9 Not Available [facility] ([facility]) [address] [facility], [place], [address], 07/25/2023 16:14:23 07/03/19 24 07/05/2023 HEPAT IC FUNCT ION PANEL (7) bilirubin, total <0.2 mg/dL 0.0-1. 2 Not Available [facility] ([facility]) [address] [facility], [place], [address], 07/25/2023 16:14:23 07/03/19 24 07/05/2023 HEPAT IC FUNCT ION PANEL (7) bilirubin, direct <0.10 mg/dL 0.00-0 .40 Not Available [facility] ([facility]) [address] [facility] [place], [address], 07/25/2023 16:14:23 07/03/19 24 07/05/2023 HEPAT IC FUNCT ION PANEL (7) alkaline phosphatase 80 IU/L 44-121 Not Available [facility] ([facility]) [address], [place], [address], 07/25/2023 16:14:23 07/03/19 24 07/05/2023 HEPAT IC FUNCT ION PANEL (7) AST (SGOT) 32 IU/L 0-40 Not Available [facility] ([facility]) [address] [facility], [place], [address], 07/25/2023 16:14:23 07/03/19 24 07/05/2023 HEPAT IC FUNCT ION PANEL (7) ALT (SGPT) 44 IU/L 0-32 above high normal Not Available [facility] ([facility]) [address] [facility], [place], [address], 07/25/2023 16:14:23 07/03/19 24 07/03/2023 A1A, QUANT +DADA TYPE( RFX PHENO ) additional information: COMMEN T Addit ional Clini julio césar Infor matio n: Alpha -1 antit rypsi n defic iency is an autos omal reces sive metab olic disor price with varia ble sever ity and age at onset . Signs and sympt oms may inclu de incre ased risk for chron ic obstr uctiv e lung disea se that typic ally manif ests after age 30, liver disea se, and liver cance r. Liver disea se can be prese nt in infan cy as neona zack tiana stasi s (alejandrina dice) or in adult vital as cirrh osis and fibro sis. Lung and liver disea se may be accel erate d by envir onmen zack expos ures such as smoki ng and exces sive alcoh ol use. Estab lishe d treat ments for COPD and emphy sema are used to treat lung disea se; lung and/o r liver trans plant ation may be an optio n for those with with sever e disea se. Intra venou s augme ntati on thera py may be avail able for patie nts who meet crite ebony. Comme nts: The ZZ and SZ genot ypes accou nt for more than 95% of indiv idual s with sever e alpha -1 antit rypsi n defic iency . To rule out other varia nts, fur er testi ng of sympt omati c indiv idual s heter ozygo us for one varia nt (S or Z) or with negat lindy resul ts may inclu de pheno typin g (PI typin g), AAT level testi ng, and/o r expan ded genot yping . Dung ic couns bigg is recom migue d to discu ss the poten tial clini julio césar impli catio ns of posit lindy resul ts, as well as recom menda tions for testi ng famil y membe rs. Dung ic Coord inato rs are avail able for healt h care provi ders to discu ss resul ts at [phone] GENE (3224 ). Test Detai ls: Two varia nts belgica zed: c.109 6 G>A (p.Gl u366L ys), commo nly refer red to as the Z allel e or PI*Z c.863 A>T (p.Gl u288V al), commo nly refer red to as the S allel e or PI*S Metho ds/Li mitat ions: DNA belgica sis of the S and Z allel es in the SERPI NA1 gene (NM_0 [id number] .[id number]) was perfo rmed by multi plex allel e-spe cific PCR ampli ficat ion follo wed by gel elect ropho resis . Resul ts must be combi michael with clini julio césar infor matio n for the most accur ate inter preta tion. Molec ular- based testi ng is highl y accur ate, but as in any labor atory test, rare diagn ostic error s may occur . False posit lindy or false negat lindy resul ts may occur for reaso ns that inclu de dung ic varia nts, blood trans fusio ns, bone marro w trans plant ation , somat ic or tissu e-spe cific mosai cism, misla beled sampl es, or shanice eous repre senta tion of famil y relat ionsh ips. This test was devel oped and its perfo rmanc e jeremías cteri stics deter mined by [facility]. It has not been clear ed or appro lamont by the Food and Drug Admin istra tion. Refer ences : Eugene soliman RA, Jarvis lehman G, Michael rodas ML, Kian cantrell M, Mango CE, Yuri murrell K, Belem galindo DK, Wai t SL, Nicole s JM, Agatha WyattK, Alba cormier C, Jaison Wyatt. The Diagn osis and Manag ement of Alpha -1 Antit rypsi n Defic iency in the Adult . Chron ic Obstr Pulm Dis. 2016 Aug 15;3(3 ):668 -682. doi: 10.15 326/j copdf .332014. 0182. PMID: 23876 891; PMCID : PMC55 47345 . Agatha OCHOA, Taurus schulte V, Bienvenido NOEL. Alpha -1 Antit rypsi n Defic iency . 2005Jan 05 [Upda espinoza 2019July 30]. In: Avelino MP, Antonio MOSQUEDA, Myrna STACY, et al., john rs. GeneR rj cantrell(R) [Inte rnet] . [place]see pabon ([place]): [facility] Jessee gómez; 1992- 2020. Avail able from: https ://rancho [email or web address].ncb i.nlm .nih. gov/b ooks/ NBK15 19/ Not Available [facility] ([facility]) [address] [place], [address], 07/25/2023 16:14:24 07/03/19 24 07/08/2023 A1A, QUANT +DADA TYPE( RFX PHENO ) xpeht-3-lkft trypsin, serum 123 mg/dL 101-18 7 Not Available [facility] ([facility]) [address] [place], [address], 07/25/2023 16:14:24 07/03/19 24 07/17/2023 A1A, QUANT +DADA TYPE( RFX PHENO ) aat, DNA analysis JAMES Correa t: c.109 6 G>A (p.Gl u366L ys), Z allel e - Not detec espinoza c.863 A>T (p.Gl u288V al), S allel e - Not detec espinoza Not assoc iated with incre ased risk of devel oping clini chandra relev ant sympt oms of alpha -1 antit rypsi n defic iency . See Addit ional Clini julio césar Infor matio n and Comme nts. Not Available [facility] ([facility]) [address] [facility], [place], [address], 07/25/2023 16:14:24 07/03/19 24 07/17/2023 A1A, QUANT +DADA TYPE( RFX PHENO ) electronical ly signed by: SADI COWAN, PHD Not Available [facility] ([facility]) [address] [facility], [place], [address], 07/25/2023 16:14:24 07/03/19 24 07/17/2023 A1A, QUANT +DADA TYPE( RFX PHENO ) a1a rfx to phenotype NOT INDICA ESPINOZA Not Available [facility] ([facility]) [address] [facility], [place], [address], 07/25/2023 16:14:24 07/03/19 24 07/05/2023 ACUTE HEPAT ITIS hep A Ab, IgM NEGATI VE negati ve Not Available [facility] ([facility]) [address] [facility], [place], [address], 07/25/2023 16:14:25 07/03/19 24 07/05/2023 ACUTE HEPAT ITIS HBsAg screen NEGATI VE negati ve Not Available [facility] ([facility]) [address] [place], [address], 07/25/2023 16:14:25 07/03/19 24 07/05/2023 ACUTE HEPAT ITIS hep B core Ab, IgM NEGATI VE negati ve Not Available [facility] ([facility]) [address] [place], [address], 07/25/2023 16:14:25 07/03/19 24 07/05/2023 ACUTE HEPAT ITIS HCV Ab NON REACTI VE non reacti ve Not Available [facility] ([facility]) [address] [facility], [place], [address], 07/25/2023 16:14:25 07/03/19 24 07/05/2023 ACUTE HEPAT ITIS interpretati on: COMMEN T Not infec espinoza with HCV unles s early or acute infec tion is suspe cted (whic h may be delay ed in an immun ocomp romis ed indiv idual ), or other evide nce exist s to indic ate HCV infec tion. Not Available [facility] ([facility]) [address] [facility], [place], [address], 07/25/2023 16:14:25 07/03/19 24 07/05/2023 IRON AND TIBC iron bind.cap.(TI BC) 358 ug/dL 250-45 0 Not Available [facility] ([facility]) [address] [place], [address], 07/25/2023 16:14:26 07/03/19 24 07/05/2023 IRON AND TIBC UIBC 279 ug/dL 131-42 5 Not Available [facility] ([facility]) [address] [place], [address], 07/25/2023 16:14:26 07/03/19 24 07/05/2023 IRON AND TIBC iron 79 ug/dL 27-159 Not Available [facility] ([facility]) [address] [place], [address], 07/25/2023 16:14:26 07/03/19 24 07/05/2023 IRON AND TIBC iron saturation 22 % 15-55 Not Available [facility] ([facility]) [address] [place], [address], 07/25/2023 16:14:26 07/03/19 24 07/05/2023 WYATT TIN, (SERI AL) ferritin 327 NG/mL 15-150 above high normal Not Available [facility] ([facility]) [address] [facility], [place], [address], 07/25/2023 16:14:28 07/03/19 24 07/05/2023 WYATT TIN, (SERI AL) pdf . Not Available [facility] ([facility]) [address] [facility], [place], [address], 07/25/2023 16:14:28 07/03/19 24 07/05/2023 PROTH ROMBI N TIME, INR prothrombin time 10.8 sec Refer ence Range : 18 years and older : 9.1 - 12.0 Not Available [facility] [address] [place], [address], 07/25/2023 16:14:29 07/03/19 24 07/05/2023 PROTH ROMBI N TIME, INR INR 1.0 ratio Refer ence Range : >1 month : 0.9 - 1.2 Not Available [facility] [address] [facility], [place], [address], 07/25/2023 16:14:29 07/03/19 24 07/25/2023 HERED .HEMO CHROM ATOSI S, DNA hereditary hemochromato sis COMMEN T Resul ts: c.845 G>A (p.Cy s282T yr) - Not Detec espinoza c.187 C>G (p.Hi s63As p) - Detec espinoza, heter ozygo us c.193 A>T (p.Se r65Cy s) - Not Detec espinoza Not assoc iated with incre ased risk to devel op clini julio césar sympt oms of Hered itary Hemoc hroma tosis . In sympt omati c indiv idual s, other cause s of iron overl oad shoul d be evalu ated. See Addit ional Infor matio n and Comme nts. Addit ional Clini julio césar Infor matio n: Hered itary hemoc hroma tosis (HFE relat ed) is an autos omal reces sive iron stora ge disor price. Patie nts may have a dung ic diagn osis of hered itary hemoc hroma tosis and never show clini julio césar sympt oms. Clini julio césar sympt oms typic ally appea r betwe en 40 to 60 years in males and after menop ause in femal es. Signs and sympt oms may inclu de organ damag e, prima rily in the liver , risk for hepat ocell ular carci noma, diabe joshua, and heart disea se due to iron accum ulati on. Life expec tancy may be decre ased in indiv idual s who devel op cirrh osis. Treat ment for clini chandra sympt omati c indiv idual s may inclu de thera peuti c phleb otomy . Liver trans plant may be used to treat end stage liver failu re. For preve ntive care, monit oring for iron overl oad is recom migue d for patie nts who are homoz ygous for c.845 G>A (p.Cy s282T yr) and have yet to exper ience clini julio césar sympt oms. Comme nts: The most commo n HFE varia nts assoc iated with hered itary hemoc hroma tosis are c.845 G>A (p.Cy s282T yr), c.187 C>G (p.Hi s63As p), c.193 A>T (p.Se r65Cy s). While patie nts homoz ygous for c.845 G>A (p.Cy s282T yr) are the most likel y to prese nt clini julio césar sympt oms, less than 10% devel op clini chandra signi fican t iron overl oad with tissu e and organ damag e. Dung ic couns eling is recom migue d to discu ss the poten tial clini julio césar impli catio ns of posit lindy resul ts, as well as recom menda tions for testi ng famil y membe rs. Dung ic Coord inato rs are avail able for healt h care provi ders to discu ss resul ts at [phone]- GENE (9913 ). Test Detai ls: Three varia nts belgica zed: c.845 G>A (p.Cy s282T yr), commo nly refer red to as C282Y c.187 C>G (p.Hi s63As p), commo nly refer red to as H63D c.193 A>T (p.Se r65Cy s), commo nly refer red to as S65C Metho ds/Li mitat ions: DNA Belgica sis of the HFE gene (NM_[id number] .[id number]) was perfo rmed by PCR ampli ficat ion follo wed by restr ictio n enzym e diges tion belgica ses. Resul ts must be combi michael with clini julio césar infor matio n for the most accur ate inter preta tion. Molec ular- based testi ng is highl y accur ate, but as in any labor atory test, diagn ostic error s may occur . False posit lindy or false negat lindy resul ts may occur for reaso ns that inclu de dung ic varia nts, blood trans fusio ns, bone marro w trans plant ation , somat ic or tissu e-spe cific mosai cism, misla beled sampl es, or shanice eous repre senta tion of famil y relat ionsh ips. This test was devel oped and its perfo rmanc e jeremías cteri stics deter mined by [facility]. It has not been clear ed or appro lamont by the Food and Drug Admin istra tion. Refer ences : Renato BR, Ashutosh PC, Koalexal ey K[place], Reinier banks LW, [place] banks ; [facility] [employer] i[employer] n for the Study of Liver Disea ses. Diagn osis and manag ement of hemoc hroma tosis : 2010 pract ice guide line by the Prerna can Assoc iatio n for the Study of Liver Disea ses. Hepat ology . 2010;5 4(1): 328-4 3. doi: 10.10 02/mando p.243 30. PMID: 29120 290; PMCID : PMC31 54485 . Khalif G, Kendra ot P, Swapnil garcia DW, Elaina r H, Hong gill O, Robert n S, Freeman o I, Ayala s M, Rory y S. [facility] best pract ice guide lines for the molec ular dung ic diagn osis of hered itary hemoc hroma tosis (HH). Eur J Hum Dung . 2016 Jun;2 4(4): 479-9 5. doi: 10.10 /ej hg.20 1512 8. Epub 2014Sep 16. PMID: 86200 218; PMCID : PMC49 63558 . Not Available [facility] ([facility]) [address] [place], [address], 07/25/2023 16:14:30 07/03/19 24 07/25/2023 HERED .HEMO CHROM ATOSI S, DNA reviewed by: SADI COWAN, PHD Not Available [facility] ([facility]) [address] [place], [address], 07/25/2023 16:14:30 07/03/19 24 07/05/2023 HEPAT ITIS B SURF AB QUANT hepatitis B surf Ab quant 3.1 mIU/m L immuni ty>9.9 below low normal Statu s of Immun ity Anti- HBs Level ----- ----- ----- --- ----- ----- ---- Incon siste nt with Immun ity 0.0 - 9.9 Consi stent with Immun ity >9.9 Not Available [facility] ([facility]) [address] [place], [address], 07/25/2023 16:14:31 07/03/19 24 07/04/2023 ACTIN (SMOO TH MUSCL E) ANTIB BECKY actin (smooth muscle) antibody 3 units 0-19 Negat lindy 0 - 19 Weak posit lindy 20 - 30 Moder ate to stron g posit lindy >30 Actin Antib odies are found in 52-85 % of patie nts with autoi mmune hepat itis or chron ic activ e hepat itis and in 22% of patie nts with prima ry bilia ry cirrh osis. Not Available [facility] ([facility]) [address] [place], [address], 07/25/2023 16:14:32 07/03/19 24 07/04/2023 MITOC HONDR IAL (M2) ANTIB BECKY mitochondria l (M2) antibody <20.0 units 0.0-20 .0 Negat lindy 0.0 - 20.0 Equiv ocal 20.1 - 24.9 Posit lindy >24.9 Mitoc hondr ial (M2) Antib odies are found in 90-96 % of patie nts with prima ry bilia ry cirrh osis. Not Available [facility] ([facility]) [address] [facility] [place] [facility], [place], [address], 07/25/2023 16:14:33 07/03/19 24 07/10/2023 LIVER -KIDN EY MICRO SOMAL AB liver-kidney microsomal Ab 1.0 units 0.0-20 .0 Negat lindy 0.0 - 20.0 Equiv ocal 20.1 - 24.9 Posit lindy >24.9 LKM type 1 antib odies are detec espinoza in patie nts with autoi mmune hepat itis type 2 and in up to 8% of patie nts with chron ic HCV infec tion. Not Available [facility] ([facility]) [address] [facility] [address], [place], [address], 07/25/2023 16:14:34 07/03/19 24 07/04/2023 GAYLE W/REF SHAISTA IF POSIT LINDY GAYLE direct NEGATI VE negati ve Not Available [facility] ([facility]) [address] [place], [address], 07/25/2023 16:14:35 07/03/19 24 07/05/2023 CERUL OPLAS MIN ceruloplasmi n 30.4 mg/dL 19.0-3 9.0 Not Available [facility] ([facility]) [address] [place], [address], 07/25/2023 16:14:36 07/03/19 24 07/05/2023 IMMUN OGLOB ULIN G, QN, SERUM immunoglobul in g, qn, serum 760 mg/dL 586-16 02 Not Available [facility] ([facility]) [address] [place], [address], 07/25/2023 16:14:37 07/03/19 24 07/05/2023 ALPHA -1-AN TITRY PSIN, SERUM liciz-9-oixi trypsin, serum 128 mg/dL 101-18 7 Not Available [facility] ([facility]) [address] [place], [address], 07/25/2023 16:14:37 07/03/19 24 07/05/2023 HEP A AB, TOTAL hep A Ab, total NEGATI VE negati ve Comme nt: The HAV total antib becky assay detec ts both IgG and IgM but does not diffe renti ate betwe en them. A negat lindy resul t sugge sts susce ptibi lity to infec tion. A posit lindy resul t could be due to vacci natio n, previ ously resol lamont infec tion or activ e infec tion. Testi ng for HAV IgM shoul d be perfo rmed if activ e HAV infec tion is suspe cted. [facility] offer s profi les that will autom atica lly refle x posit lindy HAV total antib becky resul ts to IgM (e.g. , panel #[id number] HAV Antib becky w/ Rfx). Not Available [facility] ([facility]) [address] [facility] [address] [place], [place], [address], 07/25/2023 16:14:38 07/10/19 24 07/10/2023 CHANDRA FIBRO SURE( R) PLUS methodology: COMMEN T The belgica joshua teste d are perfo rmed by Fibro Sure- Speci fic metho ds. Not inten ded for use with other diagn ostic consi derat ions. Not Available [facility] ([facility]) [address] [facility] [address], [place], [address], 07/12/2023 07:14:09 07/10/19 24 07/10/2023 CHANDRA FIBRO SURE( R) PLUS interpretati ons: COMMEN T Quant itati ve resul ts of 10 bioch emica ls in combi natio n with age and gende r, are belgica zed using a compu tatio nal algor ithm to provi de a quant itati ve surro gate marke r (0.0- 1.0) of liver fibro sis ([place] vir F0-F4 ), hepat ic steat osis (0.0- 1.0, S0-S3 ), and Non-A lcoho lic Steat o-Hep atiti s (CHANDRA ) (0.0- 1.0, N0-N3 ). The absen ce of steat osis (S<0. 40) precl udes the diagn osis of CHANDRA. Fibro sis marke r: In a study of 171 Non-A lcoho lic Fatty Liver Disea se (NAFL D) patie nts where 23% had signi fican t NAFLD fibro sis ([place] vir F2-F4 ) and 11% had cirrh osis by liver biops y, a fibro sis resul t of >0.3 yield ed a sensi tivit y of 83% and a speci ficit y of 78% for the detec tion of signi fican t fibro sis.[ 1] Steat osis marke r: In a popul ation of 2997 patie nts, where 61% had signi fican t steat osis (>=5% ) on a liver biops y, a steat osis score >0.4 had a sensi tivit y of 79% and a speci ficit y of 50% for ident ifica tion of signi fican t steat osis. [2] CHANDRA marke r: In a popul ation of 1081 NAFLD patie nts, where 51% had at least some CHANDRA by liver biops y, a predi ction of CHANDRA had a sensi tivit y of 72% for ident ifyin g CHANDRA and a speci ficit y of 71%.[ 3] Not Available [facility] ([facility]) [address] [place], [address], 07/12/2023 07:14:09 07/10/19 24 07/10/2023 CHANDRA FIBRO SURE( R) PLUS fibrosis scoring: COMMEN T <=0.2 1 = Stage F0 - No fibro sis 0.21 - 0.27 = Stage F0 - F1 0.27 - 0.31 = Stage F1 - Franki l fibro sis 0.31 - 0.48 = Stage F1 - F2 0.48 - 0.58 = Stage F2 - Bridg ing fibro sis with few septa 0.58 - 0.72 = Stage F3 - Bridg ing fibro sis with many septa 0.72 - 0.74 = Stage F3 - F4 >0.74 = Stage F4 - Cirrh osis Not Available [facility] ([facility]) [address] [place], [address], 07/12/2023 07:14:09 07/10/19 24 07/10/2023 CHANDRA FIBRO SURE( R) PLUS steatosis scoring COMMEN T <=0.4 0 = S0 - No Steat osis (<5%) 0.40 - 0.55 = S1 - Mild Steat osis (but Clini chandra Signi fican t) (5-33 %) >0.55 = S2S3- Moder ate to Sever e Steat osis (Clin icall y Signi fican t) (34-1 00%) Not Available [facility] ([facility]) [address] [place], [address], 07/12/2023 07:14:09 07/10/1907/10/2023 CHANDRA FIBRO SURE( R) PLUS chandra scoring COMMEN T <=0.2 5 = N0 - No CHANDRA 0.25 - 0.50 = N1 - Mild CHANDRA 0.50 - 0.75 = N2 - Moder ate CHANDRA >0.75 = N3 - Sever e CHANDRA Not Available [facility] ([facility]) [address] [facility] [address] [place], [place], [address], 07/12/2023 07:14:09 07/10/19 24 07/10/2023 CHANDRA FIBRO SURE( R) PLUS limitations: COMMEN T CHANDRA Fibro Sure( R) Plus is recom migue d for patie nts with suspe cted non-a lcoho lic fatty liver disea se. It is not recom migue d for patie nts with other liver disea ses. It is also not recom migue d in patie nts with Gilbe rt Disea se, acute hemol ysis, acute viral hepat itis, drug induc ed hepat itis, dung ic liver disea se, autoi mmune hepat itis and/o r extra -hepa tic tiana stasi s. Any of these clini julio césar situa tions may lead to inacc urate quant itati ve predi ction s of fibro sis. Not Available [facility] ([facility]) [address] [facility] [address], [place], [address], 07/12/2023 07:14:09 07/10/19 24 07/10/2023 CHANDRA FIBRO SURE( R) PLUS comment: COMMEN T This test was devel oped and its perfo rmanc e jeremías cteri stics deter mined by [facility]. It has not been clear ed or appro lamont by the Food and Drug Admin istra tion. For quest ions regar ding this repor t pleas e conta ct custo marbin servi ce at [phone]. Refer ences : 1. Emilio ryder V. et al. Diagn ostic Value of Bioch emica l Marke rs (Fibr oTest ) for the predi ction of Liver Fibro sis in patie nts with Non-A lcoho lic Fatty Liver Disea se. [facility] Gastr oente rolog y 2006; 6:6. 2. Ravi naranjo T. et al. The Diagn ostic Perfo rmanc e of a Simpl ified Blood Test (Stea toTes t-2) for the Predi ction of Liver Steat osis. Eur J Gastr oente rol Hepat ol. 2019; 31:39 3-402 . 3. Ravi Gay et al. Diagn ostic perfo rmanc e of a new nonin vasiv e test for nonal cohol ic steat ohepa titis using a simpl ified histo logic al refer ence. Eur J Gastr oente rol Hepat ol. 2017; 30:56 9-577 . Not Available [facility] ([facility]) [address] [place], [address], 07/12/2023 07:14:09 07/10/19 24 07/11/2023 CHANDRA FIBRO SURE( R) PLUS alpha 2-macroglobu leta, qn 113 mg/dL 110-27 6 Not Available [facility] ([facility]) [address] [place], [address], 07/12/2023 07:14:09 07/10/19 24 07/11/2023 CHANDRA FIBRO SURE( R) PLUS haptoglobin 193 mg/dL 42-296 Not Available [facility] ([facility]) [address] [place], [address], 07/12/2023 07:14:09 07/10/19 24 07/11/2023 CHANDRA FIBRO SURE( R) PLUS apolipoprote in A-1 152 mg/dL 116-20 9 Not Available [facility] ([facility]) [address] [place], [address], 07/12/2023 07:14:09 07/10/19 24 07/11/2023 CHANDRA FIBRO SURE( R) PLUS bilirubin, total 0.2 mg/dL 0.0-1. 2 Not Available [facility] ([facility]) [address] [place], [address], 07/12/2023 07:14:09 07/10/19 24 07/11/2023 CHANDRA FIBRO SURE( R) PLUS GGT 34 IU/L 0-60 Not Available [facility] ([facility]) [address] [place], [address], 07/12/2023 07:14:09 07/10/19 24 07/11/2023 CHANDRA FIBRO SURE( R) PLUS ALT (SGPT) p5p 39 IU/L 0-40 Not Available [facility] ([facility]) [address] [place], [address], 07/12/2023 07:14:09 07/10/19 24 07/11/2023 CHANDRA FIBRO SURE( R) PLUS AST (SGOT) p5p 20 IU/L 0-40 Not Available [facility] ([facility]) [address] [place], [address], 07/12/2023 07:14:09 07/10/19 24 07/11/2023 CHANDRA FIBRO SURE( R) PLUS cholesterol, total 161 mg/dL 100-19 9 Not Available [facility] ([facility]) [address] [place], [address], 07/12/2023 07:14:09 07/10/19 24 07/11/2023 CHANDRA FIBRO SURE( R) PLUS glucose, serum 156 mg/dL 70-99 above high normal Not Available [facility] ([facility]) [address] [place], [address], 07/12/2023 07:14:09 07/10/19 24 07/11/2023 CHANDRA FIBRO SURE( R) PLUS triglyceride s 252 mg/dL 0-149 above high normal Not Available [facility] ([facility]) [address] [place], [address], 07/12/2023 07:14:09 07/10/19 24 07/12/2023 CHANDRA FIBRO SURE( R) PLUS fibrosis score 0.02 0.00-0 .21 Not Available [facility] ([facility]) [address] [place], [address], 07/12/2023 07:14:09 07/10/19 24 07/12/2023 CHANDRA FIBRO SURE( R) PLUS fibrosis stage COMMEN T F0 - No fibro sis Not Available [facility] ([facility]) [address] [place], [address], 07/12/2023 07:14:09 07/10/19 24 07/12/2023 CHANDRA FIBRO SURE( R) PLUS steatosis score 0.83 0.00-0 .40 above high normal Not Available [facility] ([facility]) [address] [facility] [address], [place], [address], 07/12/2023 07:14:09 07/10/19 24 07/12/2023 CHANDRA FIBRO SURE( R) PLUS steatosis grade COMMEN T S2 - S3 Moder ate to Sever e Steat osis (Clin icall y Signi fican t) (34-1 00%) Not Available [facility] ([facility]) [address] [facility] [address] [place], [place], [address], 07/12/2023 07:14:09 07/10/19 24 07/12/2023 CHANDRA FIBRO SURE( R) PLUS chandra score 0.28 0.00-0 .25 above high normal Not Available [facility] ([facility]) [address] [place], [address], 07/12/2023 07:14:09 07/10/19 24 07/12/2023 CHANDRA FIBRO SURE( R) PLUS chandra grade COMMEN T N1 - Mild CHANDRA Not Available [facility] ([facility]) [address] [place], [address], 07/12/2023 07:14:09 07/10/19 24 07/10/2023 US, liver No observ ation record ed. [facility] [address], [place], [address], 07/17/2023 16:20:22 Result Notes None recorded. Procedures Surgical History None recorded. Imaging Results Imaging Date Name Status LastModified by Organiz ation Details LastModified Time 07/10/2023 US, liver completed [facility] [address], [place], [address], 07/17/2023 16:20:22 Procedure Notes None recorded. Medical Equipment None Reported. Allergies Allergen ID Allergen Name Allergen Category Reaction Reaction Severity Criticality Documentation Date Start Date Code Code System Note Provider Name and Address Organization Details Recorded Time [id number] codeine medicatio n Not available Not available Not available 07/03/2023 2670 RxNorm [facility] & [place] 14:32:49 Medications Name Sig Start Date Stop Date Status Note LastModified by Organization Details LastModified Time alavert d 12hr pse tablet 24ct TAKE ONE TABLET BY MOUTH EVERY TWELVE HOURS FOR 7 DAYS active Not Available Not Available No t Available losartan 50 mg tablet TAKE ONE TABLET BY MOUTH EVERY DAY active Not Available Not Available No t Available doxycycline hyclate 100 mg capsule TAKE ONE CAPSULE BY MOUTH TWICE DAILY FOR 10 DAYS -- FINISH ALL MEDICINE -- active Not Available Not Available Not Available azithromycin 250 mg tablet TAKE 2 TABLETS BY MOUTH ON DAY 1, THEN TAKE 1 TABLET DAILY ON DAYS 2-5 -- FINISH ALL MEDICINE -- active Not Available Not Available Not Available benzonatate 100 mg capsule TAKE ONE CAPSULE BY MOUTH THREE TIMES DAILY NEEDED FOR cough active Not Available Not Available No t Available pantoprazole 40 mg tablet,delay ed release TAKE ONE TABLET BY MOUTH EVERY DAY active Not Available Not Available No t Available losartan 25 mg tablet TAKE ONE TABLET BY MOUTH EVERY DAY active Not Available Not Available No t Available Senna Laxative 8.6 mg tablet TAKE TWO TABLETS BY MOUTH ONCE DAILY AT BEDTIME active Not Available Not Available No t Available ergocalcifer ol (vitamin D2) 1,250 mcg (50,000 unit) capsule TAKE ONE CAPSULE BY MOUTH TWICE A WEEK active Not Available Not Available No t Available methylpredni solone 4 mg tablets in a dose pack TAKE ACCORDING TO PACKAGE INSTRUCTION S --TAKE WITH FOOD-- -- FINISH ALL MEDICINE -- active Not Available Not Available Not Available ondansetron 4 mg disintegrati ng tablet DISSOLVE ONE TABLET in MOUTH EVERY 6 HOURS NEEDED FOR NAUSEA AND VOMITING active Not Available Not Available No t Available rosuvastatin 10 mg tablet TAKE ONE TABLET BY MOUTH EVERY DAY active Not Available Not Available No t Available Tradjenta 5 mg tablet TAKE ONE TABLET BY MOUTH EVERY DAY active Not Available Not Available No t Available Xigduo XR 5 mg-1,000 mg tablet,exten ded release TAKE TWO TABLETS BY MOUTH EVERY DAY IN THE MORNING active Not Available Not Available No t Available Xigduo XR 2.5 mg-1,000 mg tablet,exten ded release TAKE TWO TABLETS BY MOUTH EVERY MORNING active Not Available Not Available No t Available Vitals Date Recorded Body weight Body mass index (BMI) Body height Body temperature Heart rate Heart rate Oxygen saturation Oxygen saturation in Arterial blood by Pulse oximetry Systolic blood pressure Diastolic blood pressure Provider Name and Address Organization Details Last Updated DateTime 4 242060. 37 g 44.3 kg/m2 165.1 cm 97.9 [degF] 100 /min 96 /min 98 % 98 % 160 mm[Hg] 93 mm[Hg] [facility] [place] 4 14:32:54 Social History None recorded. Functional Status None recorded. Mental Status None recorded. Family History Nothing Reported. Medical History No medical history recorded. Gynecological HistoryNo gynecological history recorded. 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, [employer] [address] [address] 07/03/2023 14:24:52 07/03/2023 15:59:07 Abnormal findings diagnostic imaging of liver+biliary tract 892835460 R93.2 Liver enzy mes level above reference range 374522581 R74.01 Health Concerns Section Related Observation LastModified by Organization Detai ls LastModified Time None Recorded Concern Status LastModified by Organization Details LastModified Time None Recorded Advance Directives Directive None Recorded Payers Encounter Date Sequence Insurance Name Policy Number Policy Joseph Covered Member ID Joseph Member ID Guarantor Name 07/03/2023 2 [facility] ([id number] Amara Lucero [id number] Amara Lucero 07/03/2023 1 [place] [id number] Amara Lucero [id number] Amara Lucero Notes Date Note Type Note Provider Name and Address Organization Details Recorded Time 07/03/2023 text/html CURRENT (07/03/23 Bertin Smyth): Ms. Lucero is a 42-year-old female who was referred by Johanna Oates for hepatomegaly and elevated liver enzymes. The patient denies any complaints today. She reports hepatomegaly was a subsequent finding on CT scan when she presented to emergency department for gastroenteritis. She also reports a history of elevated liver enzymes. She denies excessive tylenol use, daily alcohol use, family history of liver disease, family history of cirrhosis, history of hepatitis, lower extremity edema, ascites, hematemesis, hematochezia or melena. The only new medication she has started recently is Xiduo. 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
== END 2024-06-23 23:59 | disposition home or self-care (01) ==
LOC: RAD 17:03
PROVIDERS: PCP Nurse Practitioner Family; Visit Provider Nurse Practitioner Family
DX: Z12.31 Encounter for screening mammogram for malignant neoplasm of breast (principal)
CPT/HCPCS: 77063; 77067

== ENCOUNTER 2024-09-10 06:03 | Day surgery (SDC) | payer BC, OTHER, SELFPAY ==
[2024-09-03 13:53] VITALS: BMI 45.4
[2024-09-10 06:22] VITALS: BP 152/94; PULSE 97; RESP 18; TEMP 36.1; O2SAT 97
[2024-09-10] MEDS: LACTATED RINGERS 1000ML 1,000 ML 50 ML IV (06:35)
[2024-09-10 06:41] LABS: POC Glucose,Bedside 170 (70-110)
--- NOTE | 2024-09-10 07:07 | EXP.ANES.CKL ---
[facility] Disclaimer: The information contained in this section may have been updated after the patient was seen, as this information can be updated by other users. Medical History Strain of right knee Internal derangement of right knee Chest pain Knee pain Diabetes mellitus, type 2 Foot sprain Ankle sprain Exposure to COVID-19 virus Elbow sprain Radiculopathy Left shoulder pain Neck pain Abscess of skin or subcutaneous tissue Flu syndrome Former heavy tobacco smoker Snoring Restless sleeper Gastroesophageal reflux disease Non compliance with medical treatment Obesity Hypertension Surgical History History of dilation and curettage History of colonoscopy History of hysterectomy History of cholecystectomy Family History Other Heart attack Heart disease Kidney failure Lymphoma Social History Smoking Status: Never smoker smoking status start date: 2002 years smoked: 13 smoking status stop date: 8 years ago alcohol intake: never substance use type: denies use current occupational status: employed Travel in the last 8 weeks?: None housing: house current occupation: [employer] caffeine: Yes Have you lived/traveled outside US in past 30 days?: No Contact w/someone who lives/traveled outside US past 30 days?: No Exposure to someone with infectious disease in past 14 days?: No Do you have a fever (greater than 100.4 F or 38 C)?: No Have you tested positive for COVID-19?: No Exposed to someone with COVID-19 in past 14 days?: No Do you have a sore throat?: No Do you have a cough?: No Do you have any weakness?: No Are you experiencing any nausea/vomitting?: No Do you have any diarrhea?: No Are you experiencing any unusual bleeding?: No Do you have any muscle aches/pain?: No Do you have any abdominal pain?: No Are you experiencing loss of taste or smell?: No [facility] Anesthesia Checklist Patient Identification Patient Identification: Arm Band and Verbal (Name & ) Structural Data Admitted From: Home Planned Operative Procedure/s: EGD Consent for Planned Operative Procedure(s) Verified: Yes Verified Documents: Surgical Consent and History and Physical NPO Status Verified Time NPO: 00:00 Additional verifications Anesthesia Reactions: No Airway Assessment Mallampati Score:: Class II Dentition: Poor Dentition Neurological Assessment Level of Consciousness: Awake, Alert and Appropriate Anesthesia Plan Anesthesia Risk discussed: Yes Anesthesia Plan: Verified ASA Class: II Anesthesia Type: MAC
--- NOTE | 2024-09-10 07:32 | EXP.HP ---
History of Present Illness *Admission Date: 09/10/24 *Reason for visit:: Dyspepsia, heartburn, bloating and dysphagia *History of present illness: Mrs. Lucero is a 43-year-old female who is here for diagnostic upper endoscopy secondary to heartburn and dyspepsia. She has had epigastric abdominal pain, nausea and early satiety. She has occasional dysphagia and globus sensation. The examination is deemed medically necessary for diagnostic EGD. The patient has been seen, interviewed and examined prior to the procedure by both myself and the anesthesia provider. [facility] Disclaimer: The information contained in this section may have been updated after the patient was seen, as this information can be updated by other users. Medical History Strain of right knee Internal derangement of right knee Chest pain Knee pain Diabetes mellitus, type 2 Foot sprain Ankle sprain Exposure to COVID-19 virus Elbow sprain Radiculopathy Left shoulder pain Neck pain Abscess of skin or subcutaneous tissue Flu syndrome Former heavy tobacco smoker Snoring Restless sleeper Gastroesophageal reflux disease Non compliance with medical treatment Obesity Hypertension Surgical History History of dilation and curettage History of colonoscopy History of hysterectomy History of cholecystectomy Family History Other Heart attack Heart disease Kidney failure Lymphoma Social History Smoking Status: Never smoker smoking status start date: 2002 years smoked: 13 smoking status stop date: 8 years ago alcohol intake: never substance use type: denies use current occupational status: employed Travel in the last 8 weeks?: None housing: house current occupation: [employer] caffeine: Yes Have you lived/traveled outside US in past 30 days?: No Contact w/someone who lives/traveled outside US past 30 days?: No Exposure to someone with infectious disease in past 14 days?: No Do you have a fever (greater than 100.4 F or 38 C)?: No Have you tested positive for COVID-19?: No Exposed to someone with COVID-19 in past 14 days?: No Do you have a sore throat?: No Do you have a cough?: No Do you have any weakness?: No Are you experiencing any nausea/vomitting?: No Do you have any diarrhea?: No Are you experiencing any unusual bleeding?: No Do you have any muscle aches/pain?: No Do you have any abdominal pain?: No Are you experiencing loss of taste or smell?: No Other Medical History Have you received the Flu Vaccine for this season: No Have you received the Pneumonia Vaccine: No Review of Systems Review of Systems Review of systems (narrative): Negative *Cardiovascular Comments: Negative *Gastrointestinal Comments: Negative *Genitourinary Comments: Negative *Musculoskeletal Comments: Negative *Neurologic Comments: Negative Meds Home Medications and Allergies Home Medications ?Medication ?Instructions ?Recorded ?Confirmed ?Type pantoprazole 40 mg tablet,delayed 40 mg PO DAILY 02/19/23 09/10/24 History release dapagliflozin propaned 5 2 tab PO DAILY 01/21/24 09/10/24 History mg-metformin ER 1,000 mg tablet, ext rel 24hr (Xigduo XR) diphenhydramine HCl 25 mg capsule 50 mg (2 x 25 mg) PO Q8H #30 caps 01/21/24 09/10/24 Rx epinephrine 0.3 mg/0.3 mL 0.3 mg (0.3 mL) IM Q10M PRN 01/21/24 09/10/24 Rx injection, auto-injector (Auvi-Q) anaphylaxis #2 ea famotidine 20 mg tablet 20 mg PO BID 30 days #60 tabs 01/21/24 09/10/24 Rx rosuvastatin 10 mg tablet 10 mg PO HS 01/21/24 09/10/24 History cyclobenzaprine 10 mg tablet 10 mg PO TID PRN muscle spasm 5 04/15/24 09/10/24 Rx days #15 tabs lidocaine 4 % topical patch 1 patch topical DAILY #5 ea 04/15/24 09/10/24 Rx cetirizine 10 mg tablet 10 mg PO DAILY 07/21/24 09/10/24 History losartan 100 mg tablet 100 mg PO DAILY 07/21/24 09/10/24 History tirzepatide 2.5 mg/0.5 mL 2.5 mg SQ WEEKLY 07/21/24 09/10/24 History subcutaneous pen injector (Lesley) New Prescriptions to Start Prescriptions: Allergies Allergy/AdvReac Type Severity Reaction Status Date / Time codeine (CODEINE) Allergy Severe S-DIFF. Verified 09/10/24 06:19 BREATHING Exam Data for Last 24 hours Vital signs and Labs for Last 24 Hours: Temp Pulse Resp BP Pulse Ox O2 Del Method 97.0 F L 97 H 18 152/94 H 97 Room Air 09/10/24 06:22 09/10/24 06:22 09/10/24 06:22 09/10/24 06:22 09/10/24 06:22 09/10/24 06:22 Laboratory Results - last 24 hr 09/10/24 06:33: POC Glucose 170 H *Routine HEENT Exam Head: Present normocephalic Eye: Present EOMI and PERRL ENT: Present mucous membranes moist *Routine Neck Exam Neck: Present supple *Routine Respiratory Exam Respiratory: Present CTA bilaterally *Routine Cardiovascular Exam Cardiovascular: Present RRR *Routine Abdominal Exam Abdominal: Present soft and normoactive bowel sounds; Absent tenderness *Routine Rectal Exam Rectal:: deferred *Routine Genitalia Exam Genitalia:: deferred *Routine Extremities Exam Extremities: Absent cyanosis, clubbing or edema *Routine Skin Exam Skin: Present warm; Absent rash *Routine Neurological Exam Neurological: Present alert and oriented X3 Assessment and Plan *Assessment and plan (1) Heartburn: Status: Acute Category: Medical Code(s): R12 - Heartburn (2) Dysphagia: Status: Acute Category: Medical Code(s): R13.10 - Dysphagia, unspecified (3) Globus sensation: Status: Acute Category: Medical Code(s): R09.A2 - Foreign body sensation, throat (4) Epigastric pain: Status: Acute Category: Medical Code(s): R10.13 - Epigastric pain (5) Nausea: Status: Acute Category: Medical Code(s): R11.0 - Nausea (6) Bloating: Status: Acute Category: Medical Code(s): R14.0 - Abdominal distension (gaseous) (7) Dyspepsia: Status: Acute Category: Medical Code(s): R10.13 - Epigastric pain Plan A/P: 1. Heartburn, reflux and dyspepsia is the preprocedural diagnosis. The patient also has bloating, belching, nausea, early satiety and dysphagia. The patient will be anesthetized/sedated using MAC sedation. The patient has been seen and examined. Cardiac and lung assessment prior to the examination is stable. Proceed with planned diagnostic EGD.
--- NOTE | 2024-09-10 07:34 | HMH.PROCNOTE ---
[facility] Procedure Note Date: 09/10/24 Time: 07:45 Procedure Note:: Upper Endoscopy Procedure Report: Esophagogastroduodenoscopy with cold biopsies and TTS balloon dilation Endoscopost: Sarthak Mejia II, MD Referring Physician: KAREL Pelayo Date of Procedure: September 10, 2024 Equipment: Olympus GIF 190 standard upper endoscope Sedation: MAC sedation Indications: Mrs. Wilson is a 43-year-old female who is here for diagnostic upper endoscopy secondary to dyspepsia and heartburn. The patient reports epigastric abdominal pain for more than a year. She has a lot of belching, bloating and gassiness. She reports heartburn, reflux and some intermittent food regurgitation. She also reports some nausea and early satiety. She has never had an EGD. She does report alternating diarrhea and constipation (mixed IBS). She did have a colonoscopy in 2020 or 2021 but the bowel preparation was poor. She reports no melena or weight loss. She does get some intermittent chest pain, dysphagia and globus sensation. The patient has been on Mounjaro but has not taken this in a couple of weeks. Procedure: Prior to the procedure, a history and physical exam was performed, and patient's medications and allergies were reviewed. The risks, benefits and alternatives of the sedation and procedure were discussed with the patient. All questions were answered and informed consent was obtained. The patient was brought to the procedure room. Patient identification and proposed procedure were verified by the physician and the nurse. The patient was placed in a left lateral decubitus position and the scope was passed under direct vision. Throughout the procedure, the patient's blood pressure, pulse, and oxygen saturations were monitored continuously. The upper GI endoscopy was accomplished without difficulty. The patient tolerated the procedure well. Findings: The scope was passed directly into the upper esophagus and advanced to the fourth portion of duodenum and proximal jejunum. A cold biopsy was taken from the proximal jejunum for the disaccharidase assay. The proximal jejunum, post bulbar duodenum, ampulla and duodenal bulb were normal with normal mucosa and conniventes. The scope was withdrawn through a normal duodenal bulb and pylorus into the stomach. There was a moderate amount of retained solid food content in the body of the stomach consistent with gastric dysmotility. There was also some mild linear antral gastropathy. Upon retroflexion there was no hiatal hernia. Cold biopsies were taken from the antrum. The body and fundus of the stomach were otherwise normal. The scope was then withdrawn into the esophagus. The Z-line was normal and there was no evidence of reflux esophagitis or Renteria's. There was no corrugation, furrowing, or rings or strictures. There were strong tertiary contractions and evidence of moderate esophageal dysmotility. The entire esophagus was dilated to 60 Jamaican/20 mm with a TTS hydrostatic balloon. There was some resistance at the cricopharyngeus. The remainder of the esophageal mucosa was normal. Impression: 1. Cricopharyngeal spasm status post dilation to 20 mm 2. Retained gastric solid food content suggestive of gastric dysmotility (possible Mounjaro effect) 3. Mild linear antral reactive gastropathy Plan: I will follow-up the biopsies and disaccharidase assay. The patient does have functional dyspepsia and functional bowel disease. We will discuss treatment options today. I do feel that most of her symptoms of heartburn, reflux and dyspepsia are related to and driven by lower intestinal gas pressure gradients/high gas pressure buildup resulting in backflow of bile and peptic fluid from the duodenum into the stomach (duodenal reflux). This gas production (carbon dioxide, hydrogen, methane, etc.) from the lower intestinal tract is the byproduct of colonic bacterial fermentation. This colonic fermentation occurs when there is more carbohydrate (dietary starches, sugars and high residue plant fiber) substrate that does not get digested (in the middle or small intestine) or occurs when there is colonic fecal buildup and colonic bacterial overgrowth. This indeed leads to bloating and the gas pressure buildup with gas pressure gradients that do drive backflow and dyspepsia.
[2024-09-10 07:49] VITALS: BP 152/103; PULSE 99; RESP 16; TEMP 36.2; O2SAT 97
[2024-09-10 07:59] VITALS: BP 134/91; PULSE 94; RESP 16; TEMP 36.2; O2SAT 97
[2024-09-10 08:09] VITALS: BP 130/81; PULSE 100; RESP 18; O2SAT 97
[2024-09-10 08:19] VITALS: BP 142/85; PULSE 95; RESP 18; O2SAT 97
[2024-09-10 08:49] VITALS: BP 156/76; PULSE 98; RESP 18; TEMP 36.2; O2SAT 97
[2024-09-17 15:11] LABS: Interpretation Notes (.); Lactase 10.47 (>/= 14.0); Maltase 137.76 (>/= 110.0); Palatinase 9.84 (>/= 8.5); Reference Notes (.); Sucrase 24.12 (>/= 25.0)
== END 2024-09-10 08:49 | disposition home or self-care (01) ==
PROVIDERS: PCP Nurse Practitioner Family; Visit Provider Internal Medicine Gastroenterology
PROC: 0DJ08ZZ Inspection of Upper Intestinal Tract, Via Natural or Artificial Opening Endoscopic (ICD-10-PCS; CPT 43239; principal; 2024-09-10 07:30)
DX: J39.2 Other diseases of pharynx (principal); K31.9 Disease of stomach and duodenum, unspecified; E11.9 Type 2 diabetes mellitus without complications; K21.9 Gastro-esophageal reflux disease without esophagitis; I10 Essential (primary) hypertension; E66.9 Obesity, unspecified; F17.210 Nicotine dependence, cigarettes, uncomplicated; Z88.5 Allergy status to narcotic agent; Z79.899 Other long term (current) drug therapy
CPT/HCPCS: 43239; 43249; 82657; 82962; C1726; J2003; J2704; J7120

== ENCOUNTER 2024-11-22 18:12 | Emergency (ER) | payer BC, OTHER, SELFPAY ==
[2024-11-22] VITALS (43 sets, daily range): BP systolic 94–158; BP diastolic 64–104; PULSE 100–122; RESP 14–24; TEMP 36.6–36.7; O2SAT 92–98; BMI 46.0; BMI 26.2
--- NOTE | 2024-11-22 18:17 | PC.NURSE ---
Addendum entered by Jersey Balderrama RN 11/22/24 18:17: 1816 Original Note: [id number] epi IM given
--- OUTSIDE RECORDS SUMMARY | 2024-11-22 18:17 | XMS_ITS | Clinical Summary ---
Author Organization [facility] Address [address] [place] [id number] Phone Care Team Providers Care Early Breastfeeding Care Specialist Name Role Phone Nonstaff, Referring Primary Care Provider Lisa dean Allergies Active Allergy Reactions Criticality Noted Date Comments Acetaminophen-Codeine 02/27/2012 Chest pain Medications hydrochlorothia zide (HYDRODIURIL) 25 mg tabletIndicatio ns:hypertension Take 25 mg by mouth daily. Indications: HYPERTENSION Active oxyCODONE-aceta minophen (PERCOCET) 5-325 mg per tablet Take 1-2 Tabs by mouth every 6 hours as needed for Pain. 40 Tab 0 4 Active Additional Information Patient not taking.Reported on 04/18/2024 ibuprofen (ADVIL;MOTRIN) 600 mg tablet Take 1 Tab by mouth every 6 hours as needed for Pain. 40 Tab 0 4 Active benzonatate (TESSALON) 100 mg Oral Capsule Take 1 Capsule by mouth 3 times daily as needed. 3 Active carvediloL (COREG) 12.5 mg Oral Tablet Take 12.5 mg by mouth 2 times daily. 4 Active JANUVIA 100 mg Oral Tablet Take 100 mg by mouth daily. 4 Active pantoprazole (PROTONIX) 40 mg Oral Tablet, Delayed Release (E.C.) Take 1 Tablet by mouth daily. 3 Active rosuvastatin (CRESTOR) 10 mg Oral Tablet Take 1 Tablet by mouth daily. 4 Active XIGDUO XR 5-1,000 mg Oral tablet, IR & ER, biphasic 24hr TAKE TWO TABLETS BY MOUTH EVERY DAY IN THE MORNING 4 Active predniSONE (DELTASONE) 50 mg Oral Tablet TAKE ONE TABLET BY MOUTH EVERY DAY FOR 5 DAYS please BEGIN 1 DAY AFTER ED visit --TAKE WITH FOOD-- 5 Active cyclobenzaprine (FLEXERIL) 10 mg Oral Tablet TAKE ONE TABLET BY MOUTH THREE TIMES DAILY NEEDED FOR MUSCLE SPASMS FOR 5 DAYS MAY CAUSE DROWSINESS 5 Active ibuprofen (ADVIL;MOTRIN) 800 mg Oral Tablet 800 mg. 5 Active EPINEPHrine (EPIPEN) 0.3 mg/0.3 mL Inj Auto-Injector Inject 0.3 mL into the muscle as needed for Anaphylaxis. Inject the contents of one pen (0.3 mL) into the muscle in the middle of the outer thigh as directed for anaphylaxis.Ca ll 911 after administering. May repeat dose in 5-15 minutes if symptoms persist or worsen. 2 Each 5 Active Active Problems Problem Noted Date Diagnosed Date Pelvic pain in female 09/04/2012 Abnormal uterine bleeding 09/04/2012 Resolved Problems Problem Noted Date Diagnosed Date Resolved Date Menometrorrhagia 10/08/2012 08/06/2013 IUD complication 09/04/2012 08/06/2013 Hypermenorrhea 08/08/2012 08/06/2013 Hypermenorrhea 06/27/2012 08/06/2013 Post-dates 05/20/2012 013 Cholelithiasis 02/06/2012 02/27/2012 Encounter for supervision of normal in multigravida 11/24/2011 11/06/2012 Heartburn in 11/24/201108/06 Vomiting complicating 11/24/2011 08/06/2013 Immunizations Immunization Administration Dates Next Due Influenza Vaccine, Unspecified Formulation 05/22 Tdap 05/23/2012 Tetanus, Unspecified Formulation 10/19/1997 Surgical History Surgery Date Site/Laterality Comments ADENOIDECTOMY 1987 ELBOW SURGERY 2009 r. elbow DILATION AND CURETTAGE OF UTERUS 03/23/2011 Uterus/N/A dilation & curettage; Surgeon: Ria De DO; Location: [facility]; Service: Gynecology CHOLECYSTECTOMY, LAPAROSCOPIC 02/15/2012 Abdomen/N/A LAPAROSCOPIC CHOLECYSTECTOMY; Surgeon: Mansi Mi MD; Location: [facility]; Service: General ENDOMETRIAL ABLATION 10/08/2012 N/A HYSTEROSCOPY DILITATION AND CURETTAGE ENDOMETRIAL ABLATION WITH NOVASURE & INTRAUTERINE DEVICE REMOVAL ; Surgeon: Elvis Amin MD; Location: [facility]; Service: Gynecology BREAST BIOPSY 2002 l. breast HAND SURGERY 2008 r. hand HYSTERECTOMY 2013 Bilateral Ureter/Left LAPAROSCOPIC ASSISTED VAGINAL HYSTERECTOMY Excision of Vulvar Cyst; Surgeon: Elvis Amin MD; Location: [facility]; Service: Gynecology Medical History Medical History Date Comments Migraine headache several times weekly Anesthesia slow to wake and combative till awake Hypermenorrhea 06/27/2012 Cardiac dysrhythmia, unspecified occassionally-unsure what type Anemia Family History Medical History Relation Name Comments Migraines Father Cancer Maternal Grandmother Hypertension Mother Diabetes Other grandmothwer Diabetes Paternal Grandmother Relation Name Status Comments Father Alive Maternal Grandmother Mother Alive Other Paternal Grandmother Social History Tobacco Use Types Packs/Day Years Used Date Smoking Tobacco: Former Cigarettes 0.3 10 1 03/13/2002 - 01/11/2013 Alcohol Use Standard Drinks/Week Comments No 0 (1 standard drink = 0.6 oz pur e alcohol) Sexually Active Control Partners Comments Not Currently Implant Male Comments No Sex and Gender Information Value Date Recorded Sex Assigned at Not on file Legal Sex Female 4:43 AM EDT Gender Identity Not on file Sexual Orientation Not on file Obstetrics History Para Term AB IAB SAB Ectopic Multiple Livin g Live Births 4 3 1 1 1 3 1 Date Outcome GA Total Labor Labor/2nd/3rd Weight Sex Type Anes PTL Bee A1 A5 Name Clin 5 Para 40w 0d 21h 00m/ 8 lb 15 oz (4.054 kg) M Vag-S pont Epidur al Nakia Comments:no problems 7 Para 40w 0d 5h 00m/ 8 lb 14 oz (4.026 kg) F Vag-S pont Epidur al Jimbo Comments:migraines. vo miting 2 SAB 7w0 d Comments:System Genera espinoza. Please review and update details. 2012 Term 40w 1d 7 lb 6.4 oz (3.357 kg) M Vag-S pont Epidur al N Livin g 8 9 SARA LUCERO A Nathalie Gonzalez MD Delivery Location:[facility] Last Filed Vital Signs Vital Sign Reading Time Taken Comments Blood Pressure 147/82 04/18/2024 10:23 PM EST Pulse 111 04/18/2024 10:30 PM EST Temperature 36.7 C (98 F) 04/18/2024 7:40 PM EST Respiratory Rate 20 04/18/2024 10:22 PM EST Oxygen Saturation 96% 04/18/2024 10:30 PM EST Inhaled Oxygen Concentration - - Weight 121.6 kg (268 lb) 04/18/2024 7:23 PM EST Height 162.6 cm (5' 4 ) 04/18/2024 7:23 PM EST Body Mass Index 46 04/18/2024 7:23 PM EST Plan of Treatment Health Maintenance Due Date Last Done Comments Annual Wellness Exam 1984 Hepatitis B Vaccine (1 of 3 - 19+ 3-dose series) 2000 DTaP/TDaP/Td (2 - Td or Tdap) 05/23/2022 05/23/2012 Breast Cancer Screening 04/24/2024 04/24/19, 04/01/2021, 09/23/2020, Additional history exists COVID-19 Vaccine ( season) 2024 Influenza Vaccine (#1) 2024 05/22/2012 Meningococcal B Vaccine Aged Out No l onger eligible based on patient's age to complete this topic Pneumococcal Vaccine 0-49 Aged Out No longer eligible based on patient's age to complete this topic Procedures Procedure Name Priority Date/Time Associated Diagnosis Comments MM MAMMO DIGITAL DIAGNOSTIC W CAD BILAT Routine 04/20/2010 12:03 PM EST Breast pain from Last 3 Months or Most Recently Relevant to Health Maintenance Results * MM MAMMO DIGITAL DIAGNOSTIC W CAD BILAT (04/20/2010 12:03 PM EST) Anatomical Region Laterality Modality Breast Bilateral Mammography 04/20/2010 3:16 PM EST Impressions 04/20/2010 4:05 PM EST : Incomplete-need additional imaging evaluation ([id number]) Baseline study. No direct/indirect evidence of malignancy. Please correlate with diagnostic ultrasound findings of the right breast. RECOMMENDATION: Ultrasound of the right breast, this ultrasound examination was performed on 04-20-10 and will be reported separately. Narrative 04/20/2010 4:05 PM EST Procedure:MM MAMMO DIGITAL DIAGNOSTIC W CAD BILAT ~ MM MAMMO DIGITAL DIAG CAD BILAT Bilateral CC and MLO view(s) were taken. BILATERAL DIGITAL DIAGNOSTIC MAMMOGRAM WITH CAD, 04-20-10: The patient presents with focal right breast pain and indeterminate palpable abnormality. No comparison studies. ~ The breasts are predominately fatty replaced. No focal mass, architectural change or suspicious calcification. Please correlate with diagnostic right breast ultrasound findings. ~ ~ * The patient with a palpable abnormality, unexplained by breast imaging, should be managed on clinical basis by the attending physician. * Breast imaging has a false negative rate of 15%. * The patient was notified by mail of the results of this examination. ~ The mammogram was reviewed by a Radiologist and CAD. Procedure Note DeliochetnaGurpreet R - 04/20/2010 Procedure:MM MAMMO DIGITAL DIAGNOSTIC W CAD BILAT ~ MM MAMMO DIGITAL DIAG CAD BILAT Bilateral CC and MLO view(s) were taken. BILATERAL DIGITAL DIAGNOSTIC MAMMOGRAM WITH CAD, 04-20-10: The patient presents with focal right breast pain and indeterminate palpable abnormality. No comparison studies. ~ The breasts are predominately fatty replaced. No focal mass,architectural change or suspicious calcification. Please correlate with diagnosticright breast ultrasound findings. ~ ~ * The patient with a palpable abnormality, unexplained by breast imaging, should be managed on clinical basis by the attending physician. * Breast imaging has a false negative rate of 15%. * The patient was notified by mail of the results of this examination. ~ The mammogram was reviewed by a Radiologist and CAD. IMPRESSION: Incomplete-need additional imaging evaluation ([id number]) Baseline study. No direct/indirect evidence of malignancy. Pleasecorrelate with diagnostic ultrasound findings of the right breast. RECOMMENDATION: Ultrasound of the right breast, this ultrasound examination wasperformed on 04-20-10 and will be reported separately. [facility] IM MAMMOGRAPHY ORDERABLES Final Result from Last 3 Months or Most Recently Relevant to Health Maintenance Insurance [place]AC[place] [id number] [facility] [employer] [place] [facility] [place] [id number] ATTN: STACY CARPENTER [address] [facility] [place] [id number] Advance Directives For more information, please contact: [phone] * Full Code (Latest Code Status on File) Date Activated Date Inactivated Comments 2013 5:33 PM 09/17/2013 1:47 PM * Full Code Date Activated Date Inactivated Comments 05/22/2012 3:53 PM 05/25/2012 7:39 PM Care Teams Early Breastfeeding Care Specialist Relationship Specialty Start Date End Date Nonstaff, Referring PCP - General 04/18/24
--- OUTSIDE RECORDS SUMMARY | 2024-11-22 18:18 | XMS_ITS | Clinical Summary ---
Author Organization [facility] Address [address] [place] [address] Care Team Providers Care Acid Crane Operator Name Role Phone Casandra Oates KRYSTIAN Primary Care Provider [phone] Allergies Active Allergy Reactions Criticality Noted Date Comments Codeine Shortness of breath High 09/23/2020 Medications ergocalciferol 1.25 MG (11764 UT) capsule TAKE ONE CAPSULE BY MOUTH twice a WEEK 3 Active losartan (Cozaar) 25 MG tablet Take 1 tablet (25 mg) by mouth 1 (one) time each day. 3 Active Tradjenta 5 MG tablet Take 1 tablet (5 mg) by mouth 1 (one) time each day. 3 Active pantoprazole (Protonix) 40 MG EC tablet Take 1 tablet (40 mg) by mouth 1 (one) time each day. 3 Active senna (Senokot) 8.6 MG tablet TAKE TWO TABLETS BY MOUTH ONCE DAILY AT BEDTIME 3 Active benzonatate (Tessalon) 100 MG capsule TAKE ONE CAPSULE BY MOUTH THREE TIMES DAILY NEEDED FOR cough 3 Active Blood Glucose Monitoring Suppl ([employer] Verio Flex System) w/Device kit USE DIRECTED TO test blood sugar TWICE DAILY 4 Active Xigduo XR 2.5-1000 MG Take 2 tablets by mouth 1 (one) time each day in the morning. 4 Active Xigduo XR 5-1000 MG TAKE TWO TABLETS BY MOUTH EVERY DAY IN THE MORNING 4 Active diazePAM (Valium) 2 MG tablet take 1-2 tablets by MOUTH ONCE BEFORE mri as directed 4 Active doxycycline (Vibramycin) 100 MG capsule TAKE ONE CAPSULE BY MOUTH TWICE DAILY FOR 10 DAYS -- FINISH ALL MEDICINE -- 4 Active OneTouch Verio test strip USE DIRECTED TO test blood sugar TWICE DAILY 4 Active Lancets (OneTouch Delica Plus Acbhom17I) misc USE DIRECTED TO test blood sugar TWICE DAILY 4 Active Alavert Allergy/Sinus 5-120 MG 12 hr tablet TAKE ONE TABLET BY MOUTH EVERY TWELVE HOURS FOR 7 DAYS 4 Active LORazepam (Ativan) 0.5 MG tablet TAKE 1 TO 2 TABLET(S) BY MOUTH TWICE DAILY NEEDED FOR MRI MAY CAUSE DROWSINESS 4 Active ondansetron ODT (Zofran-ODT) 4 MG disintegrating tablet DISSOLVE ONE TABLET in MOUTH EVERY 6 HOURS NEEDED FOR NAUSEA AND VOMITING 4 Active rosuvastatin (Crestor) 10 MG tablet Take 1 tablet (10 mg) by mouth 1 (one) time each day. 4 Active Januvia 100 MG tablet Take 1 tablet (100 mg) by mouth 1 (one) time each day. 4 Active methocarbamol (Robaxin) 750 MG tabletIndications: Neck pain,DDD (degenerative disc disease), cervical,Muscle spasm Take 1 tablet (750 mg) by mouth 3 (three) times a day if needed for muscle spasms. 90 tablet 4 Active Active Problems No known active problems Family History Medical History Relation Name Comments Lymphoma Maternal Grandmother Relation Name Status Comments Maternal Grandmother Social History Tobacco Use Types Packs/Day Years Used Date Smoking Tobacco: Never Smokeless Tobacco: Never Tobacco Cessation:Counseling Given: Not Answered PHQ-2 Answer Date Recorded Patient Health Questionnaire-2 Score 1 10/24/2022 PHQ-2A Answer Date Recorded Patient Health Questionnaire-2 Score 1 10/24/2022 Comments No Sex and Gender Information Value Date Recorded Sex Assigned at Not on file Legal Sex Female 2:13 PM EDT Gender Identity Not on file Sexual Orientation Not on file Last Filed Vital Signs Vital Sign Reading Time Taken Comments Blood Pressure 140/82 08/14/2023 8:54 AM EDT Pulse 88 10/24/2022 1:49 PM EDT Temperature 36.7 C (98 F) 10/24/2022 1:49 PM EDT Respiratory Rate 18 10/24/2022 11:12 AM EDT Oxygen Saturation 93% 10/24/2022 1:49 PM EDT Inhaled Oxygen Concentration - - Weight 123 kg (270 lb 12.8 oz) 08/14/2023 8:54 A M EDT Height 162.6 cm (5' 4 ) 08/14/2023 8:54 AM EDT Body Mass Index 46.48 08/14/2023 8:54 AM EDT Plan of Treatment Health Maintenance Due Date Last Done Comments [facility]-HIV Screening 1981 [facility]-Hepatitis C Screening 1981 [facility]-/Child/Adol SDOH Screenings 1981 [facility]-Varicella Vaccines (1 of 2 - 13+ 2-dose series) 1994 [facility]- SDOH Screenings 09/17/1999 [facility]-Adult SDOH Screenings 09/17/1999 [facility]-Hepatitis B Vaccines (1 of 3 - 19+ 3-dose series) 2000 HPV Vaccines (1 - 3-dose SCD M series) 2008 [facility]-DTaP,Tdap,and Td Vaccine s (2 - Td or Tdap) 05/23/2022 05/23/2012 [facility]-Depression Screening 10/25/2023 10/24/2022 [id number] Vaccine (1 - season) 2023 [facility]-Influenza Vaccine (#1) 2024 05/22/2012 [facility]-Zoster Vaccines (1 of 2) 09/17/2031 [facility]-Obesity Intervention Completed 024, 10/24/2022 [facility]-HIB Vaccines Aged Out No longer e ligible based on patient's age to complete this topic [facility]-Hepatitis A Vaccines Aged Out No longer eligible based on patient's age to complete this topic [facility]-IPV Vaccines Aged Out No longer e ligible based on patient's age to complete this topic [facility]-Pneumococcal Vaccine: Pediatrics (0 to 5 Years) and At-Risk Patients (6 to 49 Years) Aged Out No longer eligible b ased on patient's age to complete this topic [facility]-Rotavirus Vaccines Aged Out No lo nger eligible based on patient's age to complete this topic Insurance [facility] MEDICAID [place] Care Teams Acid Crane Operator Relationship Specialty Start Date End Date Casandra Oates APRN [address] [place] [address] [address] [facility] [place] [id number] PCP - General 08/23/22
[2024-11-22] MEDS: ONDANSETRON 4MG/2ML VIAL 4 MG IV (18:28)
[2024-11-22] MEDS: FAMOTIDINE 20MG/2ML VIAL 20 MG IV (18:28)
[2024-11-22] MEDS: METHYLPREDNISOLONE SOD SUCC 125MG VIAL 125 MG IV (18:30)
[2024-11-22] MEDS: IPRATROPIUM/ALBUTEROL 3 ML NEB 9 ML IH (18:30)
--- NOTE | 2024-11-22 19:00 | HMH.EDGENADL ---
Discharge Plan Disposition Patient Disposition: Home, Self-Care Condition: Good Prescriptions Prescriptions: New epinephrine [EpiPen 2-Eric] 0.3 mg/0.3 mL auto-injector 0.3 mg IM Q15M PRN (Reason: anaphylaxis) Qty: 2 0RF Rx Instructions: for 2 doses No Action losartan 100 mg tablet 100 mg PO DAILY Patient Comments: TAKE ONE TABLET BY MOUTH EVERY DAY Mounjaro 2.5 mg/0.5 mL pen injector 2.5 mg SQ WEEKLY Patient Comments: INJECT THE CONTENTS OF 1 PEN (2.5 MG / 0.5ML) SUBCUTANEOUSLY ONCE A WEEK cetirizine 10 mg tablet 10 mg PO DAILY Patient Comments: TAKE ONE TABLET BY MOUTH EVERY DAY Sucraid 8,500 unit/mL solution 2 ml PO 6XD Qty: 360 12RF Rx Instructions: 2mL by mouth with meals/snacks up to 6XD pantoprazole 40 mg tablet,delayed release (DR/EC) 40 mg PO DAILY Patient Comments: TAKE ONE TABLET BY MOUTH EVERY DAY rosuvastatin 10 mg tablet 10 mg PO HS Patient Comments: TAKE ONE TABLET BY MOUTH EVERY DAY dapaglifloz propaned-metformin [Xigduo XR] 5-1,000 mg tablet, IR - ER, biphasic 24hr 2 tab PO DAILY Patient Comments: TAKE TWO TABLETS BY MOUTH EVERY DAY IN THE MORNING famotidine 20 mg Tablet 20 mg PO BID 30 Days Qty: 60 0RF diphenhydramine HCl 25 mg Capsule 50 mg PO Q8H Qty: 30 0RF epinephrine [Auvi-Q] 0.3 mg/0.3 mL auto-injector 0.3 mg IM Q10M PRN (Reason: anaphylaxis) Qty: 2 0RF Rx Instructions: for 2 doses cyclobenzaprine 10 mg tablet 10 mg PO TID PRN (Reason: muscle spasm) 5 Days Qty: 15 0RF lidocaine 4 % adhesive patch,medicated 1 patch topical DAILY Qty: 5 0RF Rx Instructions: may leave on for up to 12 hrs buspirone 10 mg tablet 10 mg PO BID Qty: 60 12RF Rx Instructions: Please take 1 tablet p.o. nightly x 7 days and then 1 tablet p.o. twice daily thereafter Referrals Follow up/Referrals: Provider,Referral, MD [Primary Care Provider, Medical] - See instructions Activity Restrictions/Add. 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 If you have any recurrent symptoms please administer epinephrine to yourself in the thigh and return to the ER immediately. Clinical Impressions Clinical Impression: Anaphylaxis Qualifiers: Encounter type: initial encounter Qualified Code(s): T78.2XXA - Anaphylactic shock, unspecified, initial encounter Print Language Print Language: Libyan Discharge ED Provider: Gilmar Watson General Adult HPI <Ileana Patricio APRN - Last Filed: 11/22/24 19:01> General Chief complaint: Allergic Reaction Stated complaint: allergic reaction Time Seen by Provider: 11/22/24 18:12 Mode of Arrival: Wheelchair Source of Information: Patient Description of Symptoms (Recalled from ER Triage Doc. by RN): pt presents to ED with c/o throat swelling up. pt reports that she does have alpha gal. pt ate approx 3-4 haitian fries and states that she began to have swelling in her throat. pt reports that she has no known food allergies. Related Data Home Medications ?Medication ?Instructions ?Recorded ?Confirmed pantoprazole 40 mg tablet,delayed 40 mg PO DAILY 02/19/23 09/10/24 release dapagliflozin propaned 5 2 tab PO DAILY 01/21/24 09/10/24 mg-metformin ER 1,000 mg tablet, ext rel 24hr (Xigduo XR) rosuvastatin 10 mg tablet 10 mg PO HS 01/21/24 09/10/24 cetirizine 10 mg tablet 10 mg PO DAILY 07/21/24 09/10/24 losartan 100 mg tablet 100 mg PO DAILY 07/21/24 09/10/24 tirzepatide 2.5 mg/0.5 mL 2.5 mg SQ WEEKLY 07/21/24 09/10/24 subcutaneous pen injector (Martínuncarinro) Previous Rx's ?Medication ?Instructions ?Recorded diphenhydramine HCl 25 mg capsule 50 mg (2 x 25 mg) PO Q8H #30 caps 01/21/24 epinephrine 0.3 mg/0.3 mL 0.3 mg (0.3 mL) IM Q10M PRN 01/21/24 injection, auto-injector (Auvi-Q) anaphylaxis #2 ea famotidine 20 mg tablet 20 mg PO BID 30 days #60 tabs 01/21/24 cyclobenzaprine 10 mg tablet 10 mg PO TID PRN muscle spasm 5 04/15/24 days #15 tabs lidocaine 4 % topical patch 1 patch topical DAILY #5 ea 04/15/24 buspirone 10 mg tablet 10 mg PO BID #60 tabs 09/10/24 sacrosidase 8,500 unit/mL oral 2 ml PO 6XD #360 mL 09/22/24 solution (Sucraid) epinephrine 0.3 mg/0.3 mL 0.3 mg (0.3 mL) IM Q15M PRN 11/22/24 injection, auto-injector (EpiPen anaphylaxis #2 ea 2-Eric) Allergies Allergy/AdvReac Type Severity Reaction Status Date / Time codeine (CODEINE) Allergy Severe S-DIFF. Verified 09/10/24 06:19 BREATHING <Gilmar Watson DO - Last Filed: 11/22/24 23:06> History of Present Illness HPI narrative: This is a 44-year-old female patient, with past medical history of hypertension, obesity, GERD, diabetes, tobacco abuse, and alpha gal syndrome, who is presenting to the emergency department today for evaluation of an allergic reaction. Patient states that she was eating Bengali fries from a fast food restaurant prior to arrival. She began experiencing a subjective sense of swelling of her tongue as well as difficulty breathing. She is also reporting intense nausea with abdominal cramping. She states that she has had anaphylaxis in the past and it typically presents similar to this, but the symptoms typically occur in the setting of eating meat and she has not eaten meat this evening. [facility] <Ileana Patricio APRN - Last Filed: 11/22/24 19:01> [facility] Disclaimer: The information contained in this section may have been updated after the patient was seen, as this information can be updated by other users. Medical History Strain of right knee Internal derangement of right knee Chest pain Knee pain Diabetes mellitus, type 2 Foot sprain Ankle sprain Exposure to COVID-19 virus Elbow sprain Radiculopathy Left shoulder pain Neck pain Abscess of skin or subcutaneous tissue Flu syndrome Former heavy tobacco smoker Snoring Restless sleeper Gastroesophageal reflux disease Non compliance with medical treatment Obesity Hypertension Surgical History History of dilation and curettage History of colonoscopy History of hysterectomy History of cholecystectomy Family History Other Heart attack Heart disease Kidney failure Lymphoma Social History Smoking Status: Current every day smoker tobacco type: cigarettes packs per day: 1 pack-years: 13 smoking status start date: 2002 smoked: 13 smoking status stop date: 8 years ago alcohol intake: never substance use type: denies use current occupational status: employed Travel in the last 8 weeks?: None housing: house current occupation: [employer] caffeine: Yes Have you lived/traveled outside [place] in past 30 days?: No Contact w/someone who lives/traveled outside US past 30 days?: No Exposure to someone with infectious disease in past 14 days?: No Do you have a fever (greater than 100.4 F or 38 C)?: No Have you tested positive for COVID-19?: No Exposed to someone with COVID-19 in past 14 days?: No Do you have a sore throat?: No Do you have a cough?: No Do you have any weakness?: No Do you have any diarrhea?: No Are you experiencing any unusual bleeding?: No Do you have any muscle aches/pain?: No Do you have any abdominal pain?: No Are you experiencing loss of taste or smell?: No Other Medical History Have you received the Flu Vaccine for this season: No Have you received the Pneumonia Vaccine: No <Gilmar Watson DO - Last Filed: 11/22/24 23:06> ROS Obtained: Yes Systems reviewed as appropriate & no additional complaints except as documented Physical Exam <Gilmar Watson DO - Last Filed: 11/22/24 23:06> General General appearance: other (See MDM) Respiratory Respiratory exam: Present other (See MDM) Cardiovascular Cardiovascular exam: Present other (See MDM) Neurological Exam Neurological exam: Present other (See MDM) Medical Decision Making <Ileana Patricio APRN - Last Filed: 11/22/24 19:01> Medical Records Screening: Per USPSTF and CDC recommendations, given the prevalence of disease in our region, it is our hospital?s policy to screen for HIV and viral Hepatitis for all patients aged 18 and over and those with ongoing risk factors. Vital Signs: 11/22/24 18:14 11/22/24 18:19 11/22/24 18:30 Temperature 97.9 F Temperature Source Oral Pulse Rate 103 H 111 H Pulse Rate [Left Radial] 120 H Respiratory Rate 18 20 24 Blood Pressure 94/68 L 119/84 Blood Pressure [Right Arm] 128/64 Blood Pressure Mean Blood Pressure Mean [Right Arm] 85 02 Sat by Pulse Oximetry 92 L 92 L 95 Oxygen Delivery Method Nasal Cannula Nasal Cannula Nasal Cannula Oxygen Flow Rate (LPM) 2 2 2 11/22/24 18:35 11/22/24 18:40 11/22/24 18:45 Temperature Temperature Source Pulse Rate 112 H 109 H 102 H Pulse Rate [Left Radial] Respiratory Rate 19 16 15 Blood Pressure 137/83 130/80 148/92 H Blood Pressure [Right Arm] Blood Pressure Mean Blood Pressure Mean [Right Arm] 02 Sat by Pulse Oximetry 95 97 98 Oxygen Delivery Method Oxygen Flow Rate (LPM) 11/22/24 18:50 11/22/24 18:55 11/22/24 19:01 Temperature Temperature Source Pulse Rate 100 H 104 H 104 H Pulse Rate [Left Radial] Respiratory Rate 20 18 18 Blood Pressure 147/101 H 139/92 H 156/94 H Blood Pressure [Right Arm] Blood Pressure Mean Blood Pressure Mean [Right Arm] 02 Sat by Pulse Oximetry 98 98 97 Oxygen Delivery Method Oxygen Flow Rate (LPM) 11/22/24 19:05 11/22/24 19:10 11/22/24 19:15 Temperature Temperature Source Pulse Rate 100 H 104 H 104 H Pulse Rate [Left Radial] Respiratory Rate 19 17 17 Blood Pressure 146/91 H 153/89 H 144/89 H Blood Pressure [Right Arm] Blood Pressure Mean 103 110 111 Blood Pressure Mean [Right Arm] 02 Sat by Pulse Oximetry 98 98 98 Oxygen Delivery Method Oxygen Flow Rate (LPM) 11/22/24 19:20 11/22/24 19:25 11/22/24 19:30 Temperature Temperature Source Pulse Rate 108 H 110 H 111 H Pulse Rate [Left Radial] Respiratory Rate 19 20 20 Blood Pressure 141/87 H 141/87 H 145/86 H Blood Pressure [Right Arm] Blood Pressure Mean 106 105 100 Blood Pressure Mean [Right Arm] 02 Sat by Pulse Oximetry 98 98 98 Oxygen Delivery Method Oxygen Flow Rate (LPM) 11/22/24 20:10 11/22/24 20:15 11/22/24 20:16 Temperature Temperature Source Pulse Rate 118 H 120 H Pulse Rate [Left Radial] Respiratory Rate 21 17 Blood Pressure 149/90 H Blood Pressure [Right Arm] Blood Pressure Mean 97 Blood Pressure Mean [Right Arm] 02 Sat by Pulse Oximetry 97 95 Oxygen Delivery Method Oxygen Flow Rate (LPM) 11/22/24 20:16 11/22/24 20:20 11/22/24 20:20 Temperature Temperature Source Pulse Rate 114 H Pulse Rate [Left Radial] Respiratory Rate 18 Blood Pressure 127/104 H 129/79 Blood Pressure [Right Arm] Blood Pressure Mean 110 95 Blood Pressure Mean [Right Arm] 02 Sat by Pulse Oximetry 97 Oxygen Delivery Method Oxygen Flow Rate (LPM) 11/22/24 20:25 11/22/24 20:25 11/22/24 20:37 Temperature Temperature Source Pulse Rate 111 H 116 H Pulse Rate [Left Radial] Respiratory Rate 20 Blood Pressure 130/80 Blood Pressure [Right Arm] Blood Pressure Mean 92 Blood Pressure Mean [Right Arm] 02 Sat by Pulse Oximetry 96 97 Oxygen Delivery Method Oxygen Flow Rate (LPM) 11/22/24 20:40 11/22/24 20:40 11/22/24 20:45 Temperature Temperature Source Pulse Rate 111 H 116 H Pulse Rate [Left Radial] Respiratory Rate 16 18 Blood Pressure 135/79 Blood Pressure [Right Arm] Blood Pressure Mean 95 Blood Pressure Mean [Right Arm] 02 Sat by Pulse Oximetry 96 96 Oxygen Delivery Method Oxygen Flow Rate (LPM) 11/22/24 20:45 11/22/24 20:50 11/22/24 20:50 Temperature Temperature Source Pulse Rate 116 H Pulse Rate [Left Radial] Respiratory Rate 20 Blood Pressure 131/83 140/79 Blood Pressure [Right Arm] Blood Pressure Mean 92 91 Blood Pressure Mean [Right Arm] 02 Sat by Pulse Oximetry 97 Oxygen Delivery Method Oxygen Flow Rate (LPM) 11/22/24 20:55 11/22/24 20:55 11/22/24 21:00 Temperature Temperature Source Pulse Rate 115 H 116 H Pulse Rate [Left Radial] Respiratory Rate 19 17 Blood Pressure 126/84 Blood Pressure [Right Arm] Blood Pressure Mean 97 Blood Pressure Mean [Right Arm] 02 Sat by Pulse Oximetry 96 97 Oxygen Delivery Method Oxygen Flow Rate (LPM) 11/22/24 21:00 11/22/24 21:06 11/22/24 21:06 Temperature Temperature Source Pulse Rate 117 H Pulse Rate [Left Radial] Respiratory Rate 18 Blood Pressure 120/80 138/78 Blood Pressure [Right Arm] Blood Pressure Mean 92 98 Blood Pressure Mean [Right Arm] 02 Sat by Pulse Oximetry 97 Oxygen Delivery Method Oxygen Flow Rate (LPM) 11/22/24 21:11 11/22/24 21:11 11/22/24 21:15 Temperature Temperature Source Pulse Rate 117 H Pulse Rate [Left Radial] Respiratory Rate 18 Blood Pressure 145/82 H 133/75 Blood Pressure [Right Arm] Blood Pressure Mean 89 92 Blood Pressure Mean [Right Arm] 02 Sat by Pulse Oximetry 94 L Oxygen Delivery Method Oxygen Flow Rate (LPM) 11/22/24 21:15 11/22/24 21:20 11/22/24 21:20 Temperature Temperature Source Pulse Rate 110 H 113 H Pulse Rate [Left Radial] Respiratory Rate 20 20 Blood Pressure 127/85 Blood Pressure [Right Arm] Blood Pressure Mean 96 Blood Pressure Mean [Right Arm] 02 Sat by Pulse Oximetry 96 96 Oxygen Delivery Method Oxygen Flow Rate (LPM) 11/22/24 21:25 11/22/24 21:25 11/22/24 21:30 Temperature Temperature Source Pulse Rate 115 H 114 H Pulse Rate [Left Radial] Respiratory Rate 17 14 Blood Pressure 128/85 Blood Pressure [Right Arm] Blood Pressure Mean 99 Blood Pressure Mean [Right Arm] 02 Sat by Pulse Oximetry 96 96 Oxygen Delivery Method Oxygen Flow Rate (LPM) 11/22/24 21:31 11/22/24 21:31 11/22/24 21:35 Temperature Temperature Source Pulse Rate 112 H 119 H Pulse Rate [Left Radial] Respiratory Rate 24 23 Blood Pressure 141/88 H Blood Pressure [Right Arm] Blood Pressure Mean 102 Blood Pressure Mean [Right Arm] 02 Sat by Pulse Oximetry 96 95 Oxygen Delivery Method Oxygen Flow Rate (LPM) 11/22/24 21:35 11/22/24 21:41 11/22/24 21:41 Temperature Temperature Source Pulse Rate 118 H Pulse Rate [Left Radial] Respiratory Rate 23 Blood Pressure 136/89 130/78 Blood Pressure [Right Arm] Blood Pressure Mean 103 95 Blood Pressure Mean [Right Arm] 02 Sat by Pulse Oximetry 95 Oxygen Delivery Method Oxygen Flow Rate (LPM) 11/22/24 21:45 11/22/24 21:45 11/22/24 21:51 Temperature Temperature Source Pulse Rate 122 H 118 H Pulse Rate [Left Radial] Respiratory Rate 18 17 Blood Pressure 152/91 H Blood Pressure [Right Arm] Blood Pressure Mean 111 Blood Pressure Mean [Right Arm] 02 Sat by Pulse Oximetry 96 96 Oxygen Delivery Method Oxygen Flow Rate (LPM) 11/22/24 21:51 11/22/24 21:55 11/22/24 21:55 Temperature Temperature Source Pulse Rate 114 H Pulse Rate [Left Radial] Respiratory Rate 15 Blood Pressure 157/85 H 154/94 H Blood Pressure [Right Arm] Blood Pressure Mean 107 115 Blood Pressure Mean [Right Arm] 02 Sat by Pulse Oximetry 97 Oxygen Delivery Method Oxygen Flow Rate (LPM) 11/22/24 22:00 11/22/24 22:00 11/22/24 22:05 Temperature Temperature Source Pulse Rate 114 H 121 H Pulse Rate [Left Radial] Respiratory Rate 18 15 Blood Pressure 153/88 H Blood Pressure [Right Arm] Blood Pressure Mean 105 Blood Pressure Mean [Right Arm] 02 Sat by Pulse Oximetry 96 94 L Oxygen Delivery Method Oxygen Flow Rate (LPM) 11/22/24 22:05 11/22/24 22:10 11/22/24 22:10 Temperature Temperature Source Pulse Rate 121 H Pulse Rate [Left Radial] Respiratory Rate 22 Blood Pressure 145/87 H 147/90 H Blood Pressure [Right Arm] Blood Pressure Mean 103 105 Blood Pressure Mean [Right Arm] 02 Sat by Pulse Oximetry 96 Oxygen Delivery Method Oxygen Flow Rate (LPM) 11/22/24 22:15 Temperature Temperature Source Pulse Rate 122 H Pulse Rate [Left Radial] Respiratory Rate 24 Blood Pressure Blood Pressure [Right Arm] Blood Pressure Mean Blood Pressure Mean [Right Arm] 02 Sat by Pulse Oximetry 95 Oxygen Delivery Method Oxygen Flow Rate (LPM) Lab Data Lab Results 11/22/24 18:16: HCV Ab LOUISE w/Rflx PCR Qn Negative, HIV Ag/Ab Combo Qual Negative Orders (Tests/Meds): ED MEDICATIONS Generic Name Dose Route Start Last Admin Trade Name Freq PRN Reason Stop Dose Admin Sodium Chloride 8 ml 11/22/24 18:18 Sodium Chloride 0.9% 10ml Vial IV 12/22/24 18:17 NEEDED PRN dilute pepcid Discontinued Medications Generic Name Dose Route Start Last Admin Trade Name Freq PRN Reason Stop Dose Admin Albuterol/Ipratropium 9 ml 11/22/24 18:23 11/22/24 18:30 Ipratropium/Albuterol 3 Ml Neb IH 11/22/24 18:24 9 ml ONCE ONE Administration Diphenhydramine HCl 50 mg 11/22/24 18:18 11/22/24 18:27 Diphenhydramine 50mg/Ml Vial IV 11/22/24 18:19 50 mg ONCE ONE Administration Epinephrine HCl 0.3 mg 11/22/24 18:18 11/22/24 18:16 Epinephrine 1 Mg/Ml Ampul IM 11/22/24 18:19 0.3 mg ONCE ONE Administration Famotidine 20 mg 11/22/24 18:18 11/22/24 18:28 Famotidine 20mg/2ml Vial IV 11/22/24 18:19 20 mg ONCE ONE Administration Methylprednisolone Sodium Succinate 125 mg 11/22/24 18:23 11/22/24 18:30 Methylprednisolone Sod Succ 125mg Vial IV 11/22/24 18:24 125 mg ONCE ONE Administration Ondansetron HCl 4 mg 11/22/24 18:18 11/22/24 18:28 Ondansetron 4mg/2ml Vial IV 11/22/24 18:19 4 mg ONCE ONE Administration ORDERS Category Date Time Status HIV Combo Stat Lab 11/22/24 18:16 Completed Hepatitis C Ab Qual. W/ RFX Stat Lab 11/22/24 18:16 Completed <Gilmar Watson DO - Last Filed: 11/22/24 23:06> Medical Records Medical records reviewed: Yes I reviewed the patient's medical records. Ever Inquiry Pt receiving controlled substance: No Ever was queried for this patient: No Vital Signs: 11/22/24 18:14 11/22/24 18:19 11/22/24 18:30 Temperature 97.9 F Temperature Source Oral Pulse Rate 103 H 111 H Pulse Rate [Left Radial] 120 H Respiratory Rate 18 20 24 Blood Pressure 94/68 L 119/84 Blood Pressure [Right Arm] 128/64 Blood Pressure Mean Blood Pressure Mean [Right Arm] 85 02 Sat by Pulse Oximetry 92 L 92 L 95 Oxygen Delivery Method Nasal Cannula Nasal Cannula Nasal Cannula Oxygen Flow Rate (LPM) 2 2 2 11/22/24 18:35 11/22/24 18:40 11/22/24 18:45 Temperature Temperature Source Pulse Rate 112 H 109 H 102 H Pulse Rate [Left Radial] Respiratory Rate 19 16 15 Blood Pressure 137/83 130/80 148/92 H Blood Pressure [Right Arm] Blood Pressure Mean Blood Pressure Mean [Right Arm] 02 Sat by Pulse Oximetry 95 97 98 Oxygen Delivery Method Oxygen Flow Rate (LPM) 11/22/24 18:50 11/22/24 18:55 11/22/24 19:01 Temperature Temperature Source Pulse Rate 100 H 104 H 104 H Pulse Rate [Left Radial] Respiratory Rate 20 18 18 Blood Pressure 147/101 H 139/92 H 156/94 H Blood Pressure [Right Arm] Blood Pressure Mean Blood Pressure Mean [Right Arm] 02 Sat by Pulse Oximetry 98 98 97 Oxygen Delivery Method Oxygen Flow Rate (LPM) 11/22/24 19:05 11/22/24 19:10 11/22/24 19:15 Temperature Temperature Source Pulse Rate 100 H 104 H 104 H Pulse Rate [Left Radial] Respiratory Rate 19 17 17 Blood Pressure 146/91 H 153/89 H 144/89 H Blood Pressure [Right Arm] Blood Pressure Mean 103 110 111 Blood Pressure Mean [Right Arm] 02 Sat by Pulse Oximetry 98 98 98 Oxygen Delivery Method Oxygen Flow Rate (LPM) 11/22/24 19:20 11/22/24 19:25 11/22/24 19:30 Temperature Temperature Source Pulse Rate 108 H 110 H 111 H Pulse Rate [Left Radial] Respiratory Rate 19 20 20 Blood Pressure 141/87 H 141/87 H 145/86 H Blood Pressure [Right Arm] Blood Pressure Mean 106 105 100 Blood Pressure Mean [Right Arm] 02 Sat by Pulse Oximetry 98 98 98 Oxygen Delivery Method Oxygen Flow Rate (LPM) 11/22/24 20:10 11/22/24 20:15 11/22/24 20:16 Temperature Temperature Source Pulse Rate 118 H 120 H Pulse Rate [Left Radial] Respiratory Rate 21 17 Blood Pressure 149/90 H Blood Pressure [Right Arm] Blood Pressure Mean 97 Blood Pressure Mean [Right Arm] 02 Sat by Pulse Oximetry 97 95 Oxygen Delivery Method Oxygen Flow Rate (LPM) 11/22/24 20:16 11/22/24 20:20 11/22/24 20:20 Temperature Temperature Source Pulse Rate 114 H Pulse Rate [Left Radial] Respiratory Rate 18 Blood Pressure 127/104 H 129/79 Blood Pressure [Right Arm] Blood Pressure Mean 110 95 Blood Pressure Mean [Right Arm] 02 Sat by Pulse Oximetry 97 Oxygen Delivery Method Oxygen Flow Rate (LPM) 11/22/24 20:25 11/22/24 20:25 11/22/24 20:37 Temperature Temperature Source Pulse Rate 111 H 116 H Pulse Rate [Left Radial] Respiratory Rate 20 Blood Pressure 130/80 Blood Pressure [Right Arm] Blood Pressure Mean 92 Blood Pressure Mean [Right Arm] 02 Sat by Pulse Oximetry 96 97 Oxygen Delivery Method Oxygen Flow Rate (LPM) 11/22/24 20:40 11/22/24 20:40 11/22/24 20:45 Temperature Temperature Source Pulse Rate 111 H 116 H Pulse Rate [Left Radial] Respiratory Rate 16 18 Blood Pressure 135/79 Blood Pressure [Right Arm] Blood Pressure Mean 95 Blood Pressure Mean [Right Arm] 02 Sat by Pulse Oximetry 96 96 Oxygen Delivery Method Oxygen Flow Rate (LPM) 11/22/24 20:45 11/22/24 20:50 11/22/24 20:50 Temperature Temperature Source Pulse Rate 116 H Pulse Rate [Left Radial] Respiratory Rate 20 Blood Pressure 131/83 140/79 Blood Pressure [Right Arm] Blood Pressure Mean 92 91 Blood Pressure Mean [Right Arm] 02 Sat by Pulse Oximetry 97 Oxygen Delivery Method Oxygen Flow Rate (LPM) 11/22/24 20:55 11/22/24 20:55 11/22/24 21:00 Temperature Temperature Source Pulse Rate 115 H 116 H Pulse Rate [Left Radial] Respiratory Rate 19 17 Blood Pressure 126/84 Blood Pressure [Right Arm] Blood Pressure Mean 97 Blood Pressure Mean [Right Arm] 02 Sat by Pulse Oximetry 96 97 Oxygen Delivery Method Oxygen Flow Rate (LPM) 11/22/24 21:00 11/22/24 21:06 11/22/24 21:06 Temperature Temperature Source Pulse Rate 117 H Pulse Rate [Left Radial] Respiratory Rate 18 Blood Pressure 120/80 138/78 Blood Pressure [Right Arm] Blood Pressure Mean 92 98 Blood Pressure Mean [Right Arm] 02 Sat by Pulse Oximetry 97 Oxygen Delivery Method Oxygen Flow Rate (LPM) 11/22/24 21:11 11/22/24 21:11 11/22/24 21:15 Temperature Temperature Source Pulse Rate 117 H Pulse Rate [Left Radial] Respiratory Rate 18 Blood Pressure 145/82 H 133/75 Blood Pressure [Right Arm] Blood Pressure Mean 89 92 Blood Pressure Mean [Right Arm] 02 Sat by Pulse Oximetry 94 L Oxygen Delivery Method Oxygen Flow Rate (LPM) 11/22/24 21:15 11/22/24 21:20 11/22/24 21:20 Temperature Temperature Source Pulse Rate 110 H 113 H Pulse Rate [Left Radial] Respiratory Rate 20 20 Blood Pressure 127/85 Blood Pressure [Right Arm] Blood Pressure Mean 96 Blood Pressure Mean [Right Arm] 02 Sat by Pulse Oximetry 96 96 Oxygen Delivery Method Oxygen Flow Rate (LPM) 11/22/24 21:25 11/22/24 21:25 11/22/24 21:30 Temperature Temperature Source Pulse Rate 115 H 114 H Pulse Rate [Left Radial] Respiratory Rate 17 14 Blood Pressure 128/85 Blood Pressure [Right Arm] Blood Pressure Mean 99 Blood Pressure Mean [Right Arm] 02 Sat by Pulse Oximetry 96 96 Oxygen Delivery Method Oxygen Flow Rate (LPM) 11/22/24 21:31 11/22/24 21:31 11/22/24 21:35 Temperature Temperature Source Pulse Rate 112 H 119 H Pulse Rate [Left Radial] Respiratory Rate 24 23 Blood Pressure 141/88 H Blood Pressure [Right Arm] Blood Pressure Mean 102 Blood Pressure Mean [Right Arm] 02 Sat by Pulse Oximetry 96 95 Oxygen Delivery Method Oxygen Flow Rate (LPM) 11/22/24 21:35 11/22/24 21:41 11/22/24 21:41 Temperature Temperature Source Pulse Rate 118 H Pulse Rate [Left Radial] Respiratory Rate 23 Blood Pressure 136/89 130/78 Blood Pressure [Right Arm] Blood Pressure Mean 103 95 Blood Pressure Mean [Right Arm] 02 Sat by Pulse Oximetry 95 Oxygen Delivery Method Oxygen Flow Rate (LPM) 11/22/24 21:45 11/22/24 21:45 11/22/24 21:51 Temperature Temperature Source Pulse Rate 122 H 118 H Pulse Rate [Left Radial] Respiratory Rate 18 17 Blood Pressure 152/91 H Blood Pressure [Right Arm] Blood Pressure Mean 111 Blood Pressure Mean [Right Arm] 02 Sat by Pulse Oximetry 96 96 Oxygen Delivery Method Oxygen Flow Rate (LPM) 11/22/24 21:51 11/22/24 21:55 11/22/24 21:55 Temperature Temperature Source Pulse Rate 114 H Pulse Rate [Left Radial] Respiratory Rate 15 Blood Pressure 157/85 H 154/94 H Blood Pressure [Right Arm] Blood Pressure Mean 107 115 Blood Pressure Mean [Right Arm] 02 Sat by Pulse Oximetry 97 Oxygen Delivery Method Oxygen Flow Rate (LPM) 11/22/24 22:00 11/22/24 22:00 11/22/24 22:05 Temperature Temperature Source Pulse Rate 114 H 121 H Pulse Rate [Left Radial] Respiratory Rate 18 15 Blood Pressure 153/88 H Blood Pressure [Right Arm] Blood Pressure Mean 105 Blood Pressure Mean [Right Arm] 02 Sat by Pulse Oximetry 96 94 L Oxygen Delivery Method Oxygen Flow Rate (LPM) 11/22/24 22:05 11/22/24 22:10 11/22/24 22:10 Temperature Temperature Source Pulse Rate 121 H Pulse Rate [Left Radial] Respiratory Rate 22 Blood Pressure 145/87 H 147/90 H Blood Pressure [Right Arm] Blood Pressure Mean 103 105 Blood Pressure Mean [Right Arm] 02 Sat by Pulse Oximetry 96 Oxygen Delivery Method Oxygen Flow Rate (LPM) 11/22/24 22:15 Temperature Temperature Source Pulse Rate 122 H Pulse Rate [Left Radial] Respiratory Rate 24 Blood Pressure Blood Pressure [Right Arm] Blood Pressure Mean Blood Pressure Mean [Right Arm] 02 Sat by Pulse Oximetry 95 Oxygen Delivery Method Oxygen Flow Rate (LPM) Lab Data Lab Results 11/22/24 18:16: HCV Ab LOUISE w/Rflx PCR Qn Negative, HIV Ag/Ab Combo Qual Negative Orders (Tests/Meds): ED MEDICATIONS Generic Name Dose Route Start Last Admin Trade Name Freq PRN Reason Stop Dose Admin Sodium Chloride 8 ml 11/22/24 18:18 Sodium Chloride 0.9% 10ml Vial IV 12/22/24 18:17 NEEDED PRN dilute pepcid Discontinued Medications Generic Name Dose Route Start Last Admin Trade Name Freq PRN Reason Stop Dose Admin Albuterol/Ipratropium 9 ml 11/22/24 18:23 11/22/24 18:30 Ipratropium/Albuterol 3 Ml Neb IH 11/22/24 18:24 9 ml ONCE ONE Administration Diphenhydramine HCl 50 mg 11/22/24 18:18 11/22/24 18:27 Diphenhydramine 50mg/Ml Vial IV 11/22/24 18:19 50 mg ONCE ONE Administration Epinephrine HCl 0.3 mg 11/22/24 18:18 11/22/24 18:16 Epinephrine 1 Mg/Ml Ampul IM 11/22/24 18:19 0.3 mg ONCE ONE Administration Famotidine 20 mg 11/22/24 18:18 11/22/24 18:28 Famotidine 20mg/2ml Vial IV 11/22/24 18:19 20 mg ONCE ONE Administration Methylprednisolone Sodium Succinate 125 mg 11/22/24 18:23 11/22/24 18:30 Methylprednisolone Sod Succ 125mg Vial IV 11/22/24 18:24 125 mg ONCE ONE Administration Ondansetron HCl 4 mg 11/22/24 18:18 11/22/24 18:28 Ondansetron 4mg/2ml Vial IV 11/22/24 18:19 4 mg ONCE ONE Administration ORDERS Category Date Time Status HIV Combo Stat Lab 11/22/24 18:16 Completed Hepatitis C Ab Qual. W/ RFX Stat Lab 11/22/24 18:16 Completed Medical Decision Narrative: In summary, this is a 44-year-old female patient who is presenting to the emergency department today for evaluation of allergic reaction after eating Bengali fries from a fast food restaurant. Contributing comorbidities include a past medical history of alpha gal syndrome that provokes anaphylaxis in the setting of eating meat. On initial evaluation of the patient she was in acute distress with subjective dyspnea and wheezing appreciated in her bilateral lung queen on exam. She was tachycardic as well. She feels a subjective sense of oropharyngeal swelling, but there is no oropharyngeal angioedema noted on exam. During my physical exam the patient began actively vomiting. At this time I felt that her presentation was most consistent with anaphylaxis so we treated her with 0.3 mg of intramuscular epinephrine. Differential diagnosis includes anaphylaxis, anaphylactic shock, allergic reaction, among others. Patient did not necessitate any labs or formal imaging while in the emergency department. We did establish intravenous access and administered 20 mg of Pepcid, 50 mg of Benadryl, and 125 mg of Solu-Medrol. In addition to this we treated her with 3 DuoNebs for wheezing. My suspicion is that the patient may have had eaten Bengali fries that were cross-contamination with beef products resulting in her allergic reaction this evening After a period of several minutes the patient had near resolution of her symptoms. The patient was placed in observation status at 6 PM. Medical necessity for observational status is observation for biphasic anaphylactic reaction. The patient was provided serial reevaluations and cardiac monitoring while awaiting results. The patient was observed until 11 PM and she did not necessitate any evidence of a biphasic anaphylactic reaction. She did not necessitate any further treatment with DuoNebs or epinephrine. She remains asymptomatic. At this time it is felt that she is safe to discharge home. 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 I have strongly advised her to come back to the emergency department if she experiences any recurrence of symptoms. At this time all questions have been answered and all parties are agreeable with the decision to discharge home Critical Care <Gilmar Watson, DO - Last Filed: 11/22/24 23:06> Critical Care Time Critical Care Time: Yes Attestation: On 11/22/24, the high probability of a clinically significant, sudden or life threatening deterioration of the following system(s) required my full and direct attention, intervention and personal management. The time I documented below is in addition to time spent performing reported procedures but includes the following listed in this critical care notation. Total Time Total Critical Care Time: 60
[2024-11-22 19:44] LABS: Hepatitis C Ab Qual. W/ RFX NEGATIVE (Negative)
== END 2024-11-22 23:08 | disposition home or self-care (01) ==
PROVIDERS: Emergency Provider Student in an Organized Health Care Education/Training Program
DX: T78.2XXA Anaphylactic shock, unspecified, initial encounter (principal); R06.00 Dyspnea, unspecified; R22.0 Localized swelling, mass and lump, head; R10.9 Unspecified abdominal pain; R11.2 Nausea with vomiting, unspecified; F17.210 Nicotine dependence, cigarettes, uncomplicated
CPT/HCPCS: 86803; 87389; 96372; 96374; 96375; 99284; 99291; J0169; J1200; J2405; J2919

== ENCOUNTER 2025-01-30 15:59 | Outpatient (CLI) | payer BC, OTHER, SELFPAY ==
--- NOTE | 2025-01-30 16:02 | XR_ITS ---
FINAL REPORT CLINICAL HISTORY: fall COMPARISON: None FINDINGS: RIGHT HIP Two views of the right hip and an AP pelvis view were obtained. There is no acute fracture or dislocation. The joint spaces are well-preserved. The visualized bony structures are well aligned. There is no acute soft tissue abnormality. IMPRESSION: No acute abnormality identified. Reviewed, Interpreted and Dictated by Dereck Iniguez MD Transcribed by Cherry Ellison Authenticated and [facility]
--- NOTE | 2025-01-30 16:02 | XR_ITS ---
FINAL REPORT CLINICAL HISTORY: fall COMPARISON: None FINDINGS: 3 views of the lumbar spine were obtained. There is no evidence of fracture. There is no malalignment. The vertebrae are normal in height. Disc spaces are preserved. There is mild anterior osteophyte formation at L3-4. There is moderate facet sclerosis of the lower lumbar spine. No paraspinous soft tissue abnormalities identified. IMPRESSION: Degenerative changes without acute process. Reviewed, Interpreted and Dictated by Dereck Iniguez MD Transcribed by Cherry Ellison Authenticated and [facility]
--- OUTSIDE RECORDS SUMMARY | 2025-01-30 16:02 | XMS_ITS | Clinical Summary ---
Author Organization [facility] Address [address] [place] [address] Care Team Providers Care Outreach Assistant Name Role Phone Casandra Oates KRYSTIAN Primary Care Provider [phone] Allergies Active Allergy Reactions Criticality Noted Date Comments Codeine Shortness of breath High 09/23/2020 Medications ergocalciferol 1.25 MG (24105 UT) capsule TAKE ONE CAPSULE BY MOUTH [...] cough 3 Active Blood Glucose Monitoring Suppl ([place] WaVE Verio Flex System) w/Device kit USE DIRECTED [...] DAILY 4 Active Lancets (OneTouch Delica Plus [id number]) misc USE DIRECTED TO test blood sugar [...] [facility]-HIV Screening 1981 [facility]-Hepatitis C Screening 1981 [facility]-Infant/Child/Adol SDOH Screenings 1981 [facility]-Varicella Vaccines (1 of 2 - 13+ 2-dose series) 1994 [facility]- SDOH Screenings 09/17/1999 [facility]-Adult SDOH Screenings 09/17/1999 [facility]-Hepatitis B Vaccines (1 of 3 - 19+ 3-dose series) 2000 HPV Vaccines (1 - 3-dose SCD M series) 2008 [facility]-DTaP,Tdap,and Td Vaccine s (2 - Td or Tdap) 05/23/2022 05/23/2012 [facility]-Depression Screening 10/25/2023 10/24/2022 [id number] Vaccine (1 - season) 2024 [facility]-Influenza Vaccine (#1) 2024 05/22/2012 [facility]-Zoster Vaccines [...] patient's age to complete this topic Insurance [facility] MEDICAID ANTHEM Care Teams Outreach Assistant Relationship Specialty Start Date End Date Casandra Oates APRN [address] [place] [address] [address] [facility] [place] [id number] PCP - General 08/23/22
--- OUTSIDE RECORDS SUMMARY | 2025-01-30 16:02 | XMS_ITS | Clinical Summary ---
Author Organization [facility] Address [address] [place] [id number] Phone Care Team Providers Care Unit Technician Name Role Phone Nonstaff, Referring Primary Care [...] REMOVAL ; Surgeon: Elvis Amin MD; Location: [facility] OR; Service: Gynecology BREAST BIOPSY 2002 l. breast HAND SURGERY 2008 r. hand HYSTERECTOMY 2013 Bilateral Ureter/Left LAPAROSCOPIC ASSISTED VAGINAL HYSTERECTOMY Excision of Vulvar Cyst; Surgeon: Elvis Amin MD; Location: [facility] OR; Service: Gynecology Medical History Medical [...] SARA LUCERO A Nathalie Gonzalez MD Delivery Location:[facility] Last Filed Vital Signs Vital Sign Reading [...] 04/01/2021, 09/23/2020, Additional history exists COVID-19 Vaccine (2024- season) 2024 Influenza Vaccine (#1) 2024 05/22/2012 [...] PM EST : Incomplete-need additional imaging evaluation ([id number]-6) Baseline study. No direct/indirect evidence of malignancy. [...] and CAD. IMPRESSION: Incomplete-need additional imaging evaluation ([id number]-4) Baseline study. No direct/indirect evidence of malignancy. Pleasecorrelate with diagnostic ultrasound findings of the right breast. RECOMMENDATION: Ultrasound of the right breast, this ultrasound examination wasperformed on 04-20-10 and will be reported separately. [facility] IM MAMMOGRAPHY ORDERABLES Final Result from Last 3 Months or Most Recently Relevant to Health Maintenance Insurance [place] [id number] [facility] [employer] [place] [facility] [place] [id number] ATTN: STACY CARPENTER [address] [facility] [place] [id number] Advance Directives For more information, please contact: [phone] * Full Code (Latest Code Status on File) Date Activated Date Inactivated Comments 2013 5:33 PM 09/17/2013 1:47 PM * Full Code Date Activated Date Inactivated Comments 05/22/2012 3:53 PM 05/25/2012 7:39 PM Care Teams Unit Technician Relationship Specialty Start Date End Date Nonstaff, Referring PCP - General 04/18/24
== END 2025-01-30 23:59 | disposition home or self-care (01) ==
LOC: RAD 16:00
PROVIDERS: PCP Nurse Practitioner Family; Visit Provider Nurse Practitioner
DX: M47.816 Spondylosis without myelopathy or radiculopathy, lumbar region (principal); M25.552 Pain in left hip; W19.XXXA Unspecified fall, initial encounter
CPT/HCPCS: 72110; 73502